=== PATIENT | female | born 1955 | race Caucasian/White ===

== ENCOUNTER 2018-06-18 11:07 | Outpatient (CLI) | payer MEDICARE, SELFPAY ==
[2018-06-18 13:24] LABS: Abs Immature Grans 0.02 k/cumm (0.0-0.09); Absolute Basophil Count 0.07 k/cumm (0.0-0.2); Absolute Eosinophil Count 0.63 k/cumm (0.0-0.7); Absolute Lymphocyte Count 3.03 k/cumm (1.2-3.4); Basophils % 0.6; Eosinophils % 5.4; HCT 40.6 % (36.0-46.0); HGB 13.6 g/dL (12.0-15.5); Immature Grans % 0.2; Lymphocytes % 25.8; Mean Corp. HGB Concentration 33.5 g/dL (32.0-36.0); Mean Corpuscular Hemoglobin 30.6 pg (27.0-33.0); Mean Corpuscular Volume 91.4 fL (80-95); Monocytes % 8.9; Neutrophils % 59.1; Platelet Count 520 x1000/uL (130-400); RBC 4.44 m/cumm (4.00-5.20); RBC Distribution Width 13.8 % (11.7-14.6); White Blood Cell Count 11.75 k/cumm (4.4-10.8)
[2018-06-18 13:25] LABS: Absolute Monocyte Count 1.05 k/cumm (0.11-0.7); Absolute Neutrophil Count 6.94 k/cumm (1.2-6.7)
[2018-06-18 13:52] LABS: ALT 32 U/L (12-78); AST 19 U/L (15-37); Albumin 3.5 g/dL (3.4-5.0); Alkaline Phosphatase 107 U/L (46-116); Anion Gap 8.9 mmol/L (3-11); BUN 15 mg/dL (7-18); Bilirubin, Total 0.4 mg/dL (0.2-1.0); CO2 26.1 mmol/L (21.0-32.0); CREATININE 0.71 mg/dL (0.55-1.02); Calcium 9.5 mg/dL (8.5-10.1); Chloride 104 mmol/L (98-107); Cholesterol 200 mg/dL (50-200); Ferritin 17 ng/mL (8-388); Glucose 87 mg/dL (70-100); HDL Cholesterol 37 mg/dL (40-60); LDL CHOLESTEROL 142 mg/dL (<100); Potassium 4.4 mmol/L (3.5-5.1); Sodium 139 mmol/L (136-145); TSH (W/Ref FT4) 1.24 uIU/mL (0.358-3.74); Total Protein 6.8 g/dL (6.4-8.2); Triglyceride 163 mg/dL (30-150)
== END 2018-06-18 11:27 ==
PROVIDERS: PCP Family Medicine; Visit Provider Family Medicine
DX: I10 Essential (primary) hypertension (principal); D47.3 Essential (hemorrhagic) thrombocythemia; E03.9 Hypothyroidism, unspecified
CPT/HCPCS: 36415; 80053; 80061; 83721; 82728; 84443; 85025

== ENCOUNTER 2019-08-05 09:22 | Outpatient (CLI) | payer MEDICARE, SELFPAY ==
--- NOTE | 2019-08-05 13:18 | DI.MAMMO_ITS ---
EXAM: MG MAMMO SCREENING CLINICAL HISTORY: screening, Z12.39. TECHNIQUE: Full field digital CC and MLO mammographic images were obtained with 3D tomosynthesis and utilizing computer aided detection (CAD). COMPARISON: [id number]. FINDINGS: Breast density: B Masses/Architectural Distortion: None seen. Microcalcifications: No suspicious pleomorphic-type calcifications are seen. Skin Thickening/Nipple Retraction: None. Axilla: Unremarkable. IMPRESSION: 1. BI-RADS category 1, negative. No significant interval change with no specific features of maligna ncy noted. 2. Unless there is more urgent need, screening mammography is recommended, as per [employer] guidelines. BI-RADS Cat 1 - Negative Breast Density - Category B - Scattered areas of fibroglandular density A negative radiographic report should not delay biopsy if a dominant or clinically suspicious mass is present. Up to ten percent of cancers are not identified on mammography. A negative report may reinforce clinical impression. Adenosis and dense breasts may obscure an underlying neoplasm. False positive reports average 6 to 10%. Patient will receive a letter notifying them of these results.
[2019-08-05 14:47] LABS: ALT 30 U/L (14-59); AST 17 U/L (15-37); Albumin 3.4 g/dL (3.4-5.0); Alkaline Phosphatase 93 U/L (46-116); Anion Gap 9.3 mmol/L (3-11); BUN 20 mg/dL (7-18); Bilirubin, Total 0.3 mg/dL (0.2-1.0); CO2 29.7 mmol/L (21.0-32.0); CREATININE 0.73 mg/dL (0.55-1.02); Calcium 9.6 mg/dL (8.5-10.1); Calculated LDL 145 mg/dL; Chloride 104 mmol/L (98-107); Cholesterol 209 mg/dL (<200); Glucose 104 mg/dL (74-106); HDL Cholesterol 34 mg/dL (40-60); Potassium 4.4 mmol/L (3.5-5.1); Sodium 143 mmol/L (136-145); TSH (W/Ref FT4) 1.87 uIU/mL (0.36-3.74); Total Protein 6.6 g/dL (6.4-8.2); Triglyceride 154 mg/dL (<150)
== END 2019-08-05 09:42 ==
PROVIDERS: PCP Family Medicine; Visit Provider Family Medicine
DX: Z12.31 Encounter for screening mammogram for malignant neoplasm of breast (principal); I10 Essential (primary) hypertension; E03.9 Hypothyroidism, unspecified; R63.4 Abnormal weight loss
CPT/HCPCS: 36415; 77063; 77067; 80053; 80061; 84443

== ENCOUNTER 2019-12-30 09:38 | Outpatient (CLI) | payer MEDICARE, SELFPAY ==
[2019-12-30 21:22] LABS: Abs Immature Grans 0.03 k/cumm (0.0-0.09); Absolute Basophil Count 0.06 k/cumm (0.0-0.2); Absolute Eosinophil Count 0.31 k/cumm (0.0-0.7); Absolute Lymphocyte Count 3.31 k/cumm (1.2-3.4); Absolute Monocyte Count 1.16 k/cumm (0.11-0.7); Absolute Neutrophil Count 7.63 k/cumm (1.2-6.7); Basophils % 0.5; Eosinophils % 2.5; HCT 39.9 % (36.0-46.0); HGB 13.2 g/dL (12.0-15.5); Immature Grans % 0.2 %; Lymphocytes % 26.5; Mean Corp. HGB Concentration 33.1 g/dL (32.0-36.0); Mean Corpuscular Hemoglobin 30.3 pg (27.0-33.0); Mean Corpuscular Volume 91.5 fL (80-95); Mean Platelet Volume 10.2 fL (8.0-11.0); Monocytes % 9.3; Platelet Count 495 x1000/uL (130-400); RBC 4.36 m/cumm (4.00-5.20); RBC Distribution Width 14.5 % (11.7-14.6)
[2019-12-30 21:39] LABS: ALT 29 U/L (14-59); AST 15 U/L (15-37); Albumin 3.9 g/dL (3.4-5.0); Alkaline Phosphatase 109 U/L (46-116); Anion Gap 9.3 mmol/L (3-11); BUN 6 mg/dL (7-18); Bilirubin, Total 0.6 mg/dL (0.2-1.0); CO2 27.7 mmol/L (21.0-32.0); CREATININE 0.61 mg/dL (0.55-1.02); Calcium 9.5 mg/dL (8.5-10.1); Calculated LDL 136 mg/dL (<100); Chloride 103 mmol/L (98-107); Cholesterol 202 mg/dL (<200); Glucose 102 mg/dL (74-106); HDL Cholesterol 37 mg/dL (40-60); Potassium 4.5 mmol/L (3.5-5.1); Sodium 140 mmol/L (136-145); TSH (W/Ref FT4) 0.91 uIU/mL (0.36-3.74); Total Protein 7.2 g/dL (6.4-8.2); Triglyceride 146 mg/dL (<150)
[2019-12-30 22:00] LABS: Mono Screening Negative (Negative)
[2019-12-30 22:30] LABS: ESR 21 mm/hr (0-30)
[2019-12-31 13:11] LABS: COVID-19 RT-PCR UVMMC Result Negative (Negative)
== END 2019-12-30 09:58 ==
PROVIDERS: PCP Family Medicine; Visit Provider Family Medicine
DX: E03.9 Hypothyroidism, unspecified (principal); R59.1 Generalized enlarged lymph nodes; R53.83 Other fatigue; Z11.59 Encounter for screening for other viral diseases
CPT/HCPCS: 80053; 80061; 85652; U0003; 84443; 85025; 86140; 86308; 86618

== ENCOUNTER 2020-01-09 02:30 | Outpatient (CLI) | payer MEDICARE, SELFPAY ==
[2020-01-12 11:30] LABS: Lyme Ab w Rflx to Lyme Confirm Negative (Negative)
== END 2020-01-09 02:50 ==
PROVIDERS: PCP Family Medicine; Visit Provider Family Medicine
DX: E03.9 Hypothyroidism, unspecified (principal); R59.1 Generalized enlarged lymph nodes
CPT/HCPCS: 36415; 86618

== ENCOUNTER 2020-06-07 13:04 | Outpatient (CLI) | payer MEDICARE, SELFPAY ==
[2020-06-09 00:16] LABS: Patient Race White; SARS-CoV-2 RNA Undetected (Undetected); SARS-CoV-2 Specimen Source Nasopharynx
== END 2020-06-07 13:24 ==
PROVIDERS: PCP Family Medicine; Visit Provider Family Medicine
DX: R53.83 Other fatigue (principal); M79.18 Myalgia, other site
CPT/HCPCS: U0003

== ENCOUNTER 2020-09-03 03:00 | Outpatient (CLI) | payer MEDICARE, SELFPAY ==
[2020-09-04 15:30] LABS: COVID-19 RT-PCR UVMMC Result Negative (Negative)
== END 2020-09-03 03:20 ==
PROVIDERS: PCP Family Medicine; Visit Provider Family Medicine
DX: Z20.828 Contact with and (suspected) exposure to other viral communicable diseases (principal)
CPT/HCPCS: U0003

== ENCOUNTER 2020-11-01 16:47 | Outpatient (REF) | payer MEDICARE, SELFPAY ==
[2020-11-03 12:57] LABS: COVID-19 RT-PCR UVMMC Result Negative (Negative)
== END 2020-11-01 16:48 | disposition home or self-care (01) ==
LOC: LBN 16:47
PROVIDERS: PCP Family Medicine; Visit Provider Nurse Practitioner Family
DX: Z20.822 Contact with and (suspected) exposure to COVID-19 (principal)
CPT/HCPCS: U0003; U0005

== ENCOUNTER 2021-03-03 18:55 | Outpatient (REF) | payer MEDICARE, SELFPAY ==
[2021-03-05 12:59] LABS: COVID-19 RT-PCR UVMMC Result Negative (Negative)
== END 2021-03-03 18:56 | disposition home or self-care (01) ==
LOC: LBN 18:55
PROVIDERS: PCP Family Medicine; Visit Provider Physician Assistant
DX: Z20.822 Contact with and (suspected) exposure to COVID-19 (principal)
CPT/HCPCS: U0003

== ENCOUNTER 2021-03-04 04:30 | Outpatient (CLI) | payer MEDICARE, SELFPAY ==
--- NOTE | 2021-03-04 07:15 | DI.RAD_ITS ---
Exam(s) XR CHEST 2V PA LATERAL EXAM: XR CHEST 2V PA LATERAL CLINICAL HISTORY: cough, malaise. R/o pneumonia,r05 TECHNIQUE: 2D digital imaging was performed. COMPARISON: No exams were available for comparison FINDINGS: MEDIASTINUM: Normal. HEART: Normal. PULMONARY VASCULATURE: Normal. LUNGS: Clear. Mild hyperinflation. PLEURAL SPACE: No pleural effusion or pneumothorax. BONE:Unremarkable for age. IMPRESSION: No evidence of pneumonia or other acute abnormality. DATA REPOSITORY: RADIATION DOSE DELIVERED:
== END 2021-03-04 04:50 ==
PROVIDERS: PCP Family Medicine; Visit Provider Physician Assistant
DX: R05 Cough (principal); R53.81 Other malaise
CPT/HCPCS: 71046

== ENCOUNTER 2021-03-17 10:50 | Day surgery (SDC) | payer MEDICARE, SELFPAY ==
[2021-03-17 11:01] VITALS: BP 153/88; PULSE 92; TEMP 37.4; O2SAT 98
--- NOTE | 2021-03-17 11:19 | ED.GENADUL_ITS ---
Discharge Plan Disposition Patient Disposition: HOME Condition: Stable Discharge Details Clinical Impression: Laceration of finger of right hand with tendon involvement Primary Care Provider: Ana Campos ED Provider: Carol Davila Discharge Data Discharge Date/Time-TO BE ENTERED AT DEPARTURE: 03/17/21 13:32 Medical Decision Making No suspicion for fracture given mechanism, obvious tendon laceration, splinted with aluminum foam in extension Tetanus updated Discussed with Dr. Warner, orthopedic -Follow-up list, patient aware she will likely need surgical intervention Tolerated suture placement without incident -Keflex empirically Patient will actually be taken to the operating room at this time after Dr. Warner presented to the emergency room to evaluate the patient, states he has documentation HPI General Mode of arrival: ambulatory . Date/Time Provider Initiated Documentation: 03/17/21 11:16 . Limitations to Documentation: no limitations . Information obtained by: patient . HPI Narrative: This 65-year-old female presents with a laceration to her right thumb. Patient denies any additional injuries. She states she was washing a aluminum hand this morning with only and accidentally lacerated her thumb. She states she cannot extend her thumb. She has any strength or sensation change. Denies any history of anticoagulation. States mild discomfort to the area. Denies any history of immunosuppression. Related Data Home Medications Medication Instructions Recorded Confirmed Chaga Tea 1 ea PO QID 10/21/15 03/17/21 albuterol sulfate 90 mcg/actuation 2 puff INHALATION Q4H PRN #1 11/19/19 03/17/21 aerosol inhaler canister amlodipine 10 mg tablet 10 mg PO DAILY #90 tab-cap 07/01/20 03/17/21 ibuprofen 600 mg tablet 600 mg PO Q6H PRN #180 tab-cap 07/01/20 03/17/21 levothyroxine 100 mcg tablet 100 mcg PO DAILY #90 tab-cap 07/01/20 03/17/21 hydrochlorothiazide 25 mg tablet 25 mg PO DAILY #90 tab 12/28/20 03/17/21 Symbicort 160 mcg-4.5 2 puff INHALATION BID #10.2 g NS 02/03/21 03/17/21 mcg/actuation HFA aerosol inhaler umeclidinium 62.5 mcg-vilanterol 1 inh INHALATION DAILY #180 ea 02/14/21 03/17/21 25 mcg/actuation powdr for inhalation albuterol sulfate 90 mcg/actuation 2 puff INHALATION Q6H PRN #8.5 g 03/03/21 03/17/21 aerosol inhaler benzonatate 100 mg capsule 100 mg PO TID PRN #14 cap 03/03/21 03/17/21 naproxen 250 - 500 mg PO BID PRN #20 tab 03/17/21 oxycodone 5 - 10 mg PO Q4H PRN #7 tab 03/17/21 Previous Rx's Medication Instructions Recorded albuterol sulfate 90 mcg/actuation 2 puff INHALATION Q4H PRN #1 11/19/19 aerosol inhaler canister amlodipine 10 mg tablet 10 mg PO DAILY #90 tab-cap 07/01/20 ibuprofen 600 mg tablet 600 mg PO Q6H PRN #180 tab-cap 07/01/20 levothyroxine 100 mcg tablet 100 mcg PO DAILY #90 tab-cap 07/01/20 hydrochlorothiazide 25 mg tablet 25 mg PO DAILY #90 tab 12/28/20 Symbicort 160 mcg-4.5 2 puff INHALATION BID #10.2 g NS 02/03/21 mcg/actuation HFA aerosol inhaler umeclidinium 62.5 mcg-vilanterol 1 inh INHALATION DAILY #180 ea 02/14/21 25 mcg/actuation powdr for inhalation albuterol sulfate 90 mcg/actuation 2 puff INHALATION Q6H PRN #8.5 g 03/03/21 aerosol inhaler benzonatate 100 mg capsule 100 mg PO TID PRN #14 cap 03/03/21 naproxen 250 - 500 mg PO BID PRN #20 tab 03/17/21 oxycodone 5 - 10 mg PO Q4H PRN #7 tab 03/17/21 Allergies Allergy/AdvReac Type Severity Reaction Status Date / Time meloxicam [From Mobic] Allergy Intermediate NAVARRO's, Hives Verified 03/17/21 11:03 diazepam [From Valium] Allergy Mild Skin Rash Verified 03/17/21 11:03 nortriptyline AdvReac Intermediate Irritability Verified 03/17/21 11:03 and dizziness tramadol AdvReac Mild Lightheaded Verified 03/17/21 11:03 ness doxycycline AdvReac Tingling Verified 03/17/21 11:03 in hands gabapentin AdvReac Dizziness Verified 03/17/21 11:03 General Stated Complaint: Laceration CLARIBEL: 3 Review of Systems Musculoskeletal Comments: Decreased range of motion of right thumb, pain PFSH Medical History Abnormal WBC count (11/12/14) Cervical spondylosis (08/27/12) Chronic obstructive lung disease Closed fracture of humerus right 11/04/07 Closed fracture of humerus (11/04/07) COPD (chronic obstructive pulmonary disease) Discoid lupus erythematosus Suspected 11/04/07 Discoid lupus erythematosus (11/04/07) Essential hypertension Essential hypertension (06/11/13) Fibromyalgia Fibromyalgia syndrome (01/22/14) elevated MATTHEW 06/12/14;DNA DOUBLE STRANDED Ab, IgG; 177 Cardiolipin IgM; Indeterminate 12.5 Graves disease (06/12/13) 1981 WITH ABLATION; NOW ON REPLACEMENT H/O bone density study good 08/27/02 Hand joint pain 11/04/07 Hand joint pain (11/04/07) History of bone density study Hypothyroidism s/p ablation for grave's disease Hypothyroidism (04/08/13) Thyroid orbitopathy Left inguinal hernia Lumbar disc prolapse with compression radiculopathy (08/27/12) spinal stenosis r leg radiculopathy Smoker Smoker (11/04/07) Therapeutic procedure nerve root block and steroid injection--right S-1 04/07/15 Thoracic back pain Thrombocytosis Unilateral inguinal hernia, without obstruction or gangrene, not specified as recurrent (10/01/15) Weight loss, abnormal (04/23/17) Surgical History BONE DENSITY TEST (~2002) GOOD CYST REMOVAL (~1977) WRIST H/O prior ablation treatment Graves Disease 08/27/81 H/O removal of cyst wrist History of prior ablation treatment History of removal of cyst Hysterectomy, Laproscopic (~1981) for heavy bleeding; still has both ovaries Recurrent major depression in partial remission (~1981) FOR GRAVES DISEASE Repair of inguinal hernia (06/21/16) 06/21/16 removal of old mesh and repair 11/24/15; LEFT S/P laparoscopic hysterectomy for heavy bleeding; both ovaries remain S/P unilateral inguinal hernia repair left 11/24/15 Status post laparoscopic hysterectomy Status post unilateral inguinal hernia repair (11/24/15) Family History Mother , RESPIRATORY at age 78. Essential hypertension Mental disorder dementia Asthma Father , ETOH at age 56. Alcohol abuse Sister Essential hypertension Brother Asthma Maternal Grandfather , age 68 Essential hypertension Paternal Grandfather Diabetes Maternal Grandmother , age 68 Essential hypertension Paternal Grandmother No problems noted. Son No problems noted. Son No problems noted. Social History Smoking/Tobacco Use Status: Former Tobacco Use Quit Date: 04/30/94 Tobacco: How many years used: 23 Second Hand Exposure: No Smoking risk assessment performed?: Yes Alcohol Intake: current Alcohol Intake frequency: 0-2 drinks per day Alcohol type: beer Drug use: Daily Substance use type: marijuana Caregiver/Support person: No Household members: family Housing: house Communication Needs: None Do you need help understanding health information?: Never Pets and animals: Yes Pets and animals: cat(s) and dog(s) Sexually active: No Do you think of yourself as: straight/heterosexual Current gender identity: female What is your relationship status?: How often do you talk on the phone with friends or family?: three or more times per week How often do you get together with friends or relatives?: three or more times per week How often do you attend sikh or pentecostal services?: 4 or more times per year Do you belong to any clubs or organized social groups?: no Panel score (0-1 are the most socially isolated patients): 2 What type of physical activity do you participate in: walking Duration: 15-30 minutes/day Frequency: 3-4 times per week Francesca/Yarsani: Mosque Special francesca needs: No Seatbelt use: always Drive 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 Do you feel safe in your relationship?: Yes Victim of physical abuse: No Victim of emotional abuse: No Victim of sexual abuse: No Exam Const General: cooperative and healthy appearing Extrem Other: Right thumb with laceration proximal phalanx, held in flexion Sensation intact distally, brisk capillary refill distally Course Vital Signs Vital signs: Vital Signs Temperature 37.4 C 03/17/21 11:01 Pulse 92 H 03/17/21 11:01 Blood Pressure 153/88 H 03/17/21 11:01 Pulse Oximetry 98 03/17/21 11:01 Temperature 37.4 C 03/17/21 11:01 Temperature Source Temporal Artery Scan 03/17/21 11:01 Pulse 92 H 03/17/21 11:01 Blood Pressure 153/88 H 03/17/21 11:01 Blood Pressure Position Sitting 03/17/21 11:01 Pulse Oximetry 98 03/17/21 11:01 Oxygen Delivery Method Room Air 03/17/21 11:01 Oxygen Flow Rate 0 03/17/21 11:01 Pain Level 6 03/17/21 11:01 Procedures Laceration Laceration 1: Site: upper extremity Side (If applicable): right Size (cm): 2 Description: linear Depth: simple, single layer Local Anesthetic: Lidocaine 1% Amount of anesthesia used (mL): 3 Pre-repair: wound explored Skin layer closed with: other Size (cm): 5-0 Number of sutures: 2 Technique: simple, interrupted
[2021-03-17 12:44] LABS: Source Nasal/Nares
--- NOTE | 2021-03-17 12:50 | HPE_ITS ---
Date of service: 03/17/21 Time of Service: 12:50 Assessment and Plan Assessment and plan (1) Laceration of finger of right hand with tendon involvement: Status: Acute Assessment and plan: 65-year-old female with acute right thumb extensor tendon laceration consistent with complete EPL rupture. Discuss options with the patient including repair today under local anesthesia, which the patient prefers. Declines following up tomorrow n.p.o. for monitored anesthesia care. Also declines referral to hand surgeon elsewhere for definitive surgical management. As I have not seen the wound, I did discuss exploring the wound and discovering a more significant injury that is not amenable to end-to-end repair and could need tendon transfer that would have to be performed at another time with a hand surgeon. The risks, benefits, and alternatives were thoroughly discussed. Patient was counseled regarding pain management, expected postoperative course, and recovery timeline. Especially high risk for pain and stiffness given pre- existing fibromyalgia and arthritis. All questions were answered. Informed consent was obtained. Agree and understand treatment plan. Follow up 10-14 days after surgery. Will call if any changes or concerns. Qualifiers: Encounter type: initial encounter Qualified Code(s): S61.219A - Laceration without foreign body of unspecified finger without damage to nail, initial encounter History of Present Illness History of Present Illness Chief Complaint: Right thumb laceration Narrative: Patient describes cleaning aluminum can for recycling this morning around 9 AM and suffering isolated laceration to the back of her right thumb. Immediately new there was a problem as the thumb bent into flexion and she was unable to straighten it. Flexion and sensation otherwise intact. No pre-existing tendon dysfunction but relates prior thumb and hand arthritis and fibromyalgia pains. Former smoker with COPD. Awaiting new COPD medications to optimize control. Stable hypertension. Review of Systems All systems reviewed & are unremarkable except as noted in HPI and below PFSH Medical History Abnormal WBC count (11/12/14) Cervical spondylosis (08/27/12) Chronic obstructive lung disease Closed fracture of humerus right 11/04/07 Closed fracture of humerus (11/04/07) COPD (chronic obstructive pulmonary disease) Discoid lupus erythematosus Suspected 11/04/07 Discoid lupus erythematosus (11/04/07) Essential hypertension Essential hypertension (06/11/13) Fibromyalgia Fibromyalgia syndrome (01/22/14) elevated MATTHEW 06/12/14;DNA DOUBLE STRANDED Ab, IgG; 177 Cardiolipin IgM; Indeterminate 12.5 Graves disease (06/12/13) 1981 WITH ABLATION; NOW ON REPLACEMENT H/O bone density study good 08/27/02 Hand joint pain 11/04/07 Hand joint pain (11/04/07) History of bone density study Hypothyroidism s/p ablation for grave's disease Hypothyroidism (04/08/13) Thyroid orbitopathy Left inguinal hernia Lumbar disc prolapse with compression radiculopathy (08/27/12) spinal stenosis r leg radiculopathy Smoker Smoker (11/04/07) Therapeutic procedure nerve root block and steroid injection--right S-1 04/07/15 Thoracic back pain Thrombocytosis Unilateral inguinal hernia, without obstruction or gangrene, not specified as recurrent (10/01/15) Weight loss, abnormal (04/23/17) Surgical History BONE DENSITY TEST (~2002) GOOD CYST REMOVAL (~1977) WRIST H/O prior ablation treatment Graves Disease 08/27/81 H/O removal of cyst wrist History of prior ablation treatment History of removal of cyst Hysterectomy, Laproscopic (~1981) for heavy bleeding; still has both ovaries Recurrent major depression in partial remission (~1981) FOR GRAVES DISEASE Repair of inguinal hernia (06/21/16) 06/21/16 removal of old mesh and repair 11/24/15; LEFT S/P laparoscopic hysterectomy for heavy bleeding; both ovaries remain S/P unilateral inguinal hernia repair left 11/24/15 Status post laparoscopic hysterectomy Status post unilateral inguinal hernia repair (11/24/15) Family History Mother , RESPIRATORY at age 78. Essential hypertension Mental disorder dementia Asthma Father , ETOH at age 56. Alcohol abuse Sister Essential hypertension Brother Asthma Maternal Grandfather , age 68 Essential hypertension Paternal Grandfather Diabetes Maternal Grandmother , age 68 Essential hypertension Paternal Grandmother No problems noted. Son No problems noted. Son No problems noted. Social History Smoking/Tobacco Use Status: Former Tobacco Use Quit Date: 04/30/94 Tobacco: How many years used: 23 Second Hand Exposure: No Smoking risk assessment performed?: Yes Alcohol Intake: current Alcohol Intake frequency: 0-2 drinks per day Alcohol type: beer Drug use: Daily Substance use type: marijuana Caregiver/Support person: No Household members: family Housing: house Communication Needs: None Do you need help understanding health information?: Never Pets and animals: Yes Pets and animals: cat(s) and dog(s) Sexually active: No Do you think of yourself as: straight/heterosexual Current gender identity: female What is your relationship status?: How often do you talk on the phone with friends or family?: three or more times per week How often do you get together with friends or relatives?: three or more times per week How often do you attend latter day or samaritan services?: 4 or more times per year Do you belong to any clubs or organized social groups?: no Panel score (0-1 are the most socially isolated patients): 2 What type of physical activity do you participate in: walking Duration: 15-30 minutes/day Frequency: 3-4 times per week Francesca/Faith: Judaism Special francesca needs: No Seatbelt use: always Drive intox 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: No Do you feel safe in your relationship?: Yes Victim of physical abuse: No Victim of emotional abuse: No Victim of sexual abuse: No Meds Allergies and Home Medications Allergies Allergy/AdvReac Type Severity Reaction Status Date / Time meloxicam [From Mobic] Allergy Intermediate NAVARRO's, Hives Verified 03/17/21 11:03 diazepam [From Valium] Allergy Mild Skin Rash Verified 03/17/21 11:03 nortriptyline AdvReac Intermediate Irritability Verified 03/17/21 11:03 and dizziness tramadol AdvReac Mild Lightheaded Verified 03/17/21 11:03 ness doxycycline AdvReac Tingling Verified 03/17/21 11:03 in hands gabapentin AdvReac Dizziness Verified 03/17/21 11:03 Home Medications Medication Instructions Recorded Confirmed Type Chaga Tea 1 ea PO QID 10/21/15 03/03/21 History albuterol sulfate 90 mcg/actuation 2 puff INHALATION Q4H PRN #1 11/19/19 07/04/16 Rx aerosol inhaler canister amlodipine 10 mg tablet 10 mg PO DAILY #90 tab-cap 07/01/20 03/03/21 Rx ibuprofen 600 mg tablet 600 mg PO Q6H PRN #180 tab-cap 07/01/20 03/03/21 Rx levothyroxine 100 mcg tablet 100 mcg PO DAILY #90 tab-cap 07/01/20 03/03/21 Rx hydrochlorothiazide 25 mg tablet 25 mg PO DAILY #90 tab 12/28/20 03/03/21 Rx Symbicort 160 mcg-4.5 2 puff INHALATION BID #10.2 g NS 02/03/21 03/03/21 Rx mcg/actuation HFA aerosol inhaler umeclidinium 62.5 mcg-vilanterol 1 inh INHALATION DAILY #180 ea 02/14/21 03/03/21 Rx 25 mcg/actuation powdr for inhalation albuterol sulfate 90 mcg/actuation 2 puff INHALATION Q6H PRN #8.5 g 03/03/21 03/03/21 Rx aerosol inhaler benzonatate 100 mg capsule 100 mg PO TID PRN #14 cap 03/03/21 03/03/21 Rx cephalexin 500 mg PO TID 7 Days #21 cap 03/17/21 Rx Exam Narrative Exam Narrative: Awake, alert, and in no distress Breathing comfortably on room air 2+ right radial pulse. Regular rate and rhythm. Emergency department bandage placed over thumb limiting assessment of wound but reportedly couple centimeter transverse clean laceration over the dorsal aspect of the thumb proximal phalanx. Patient unable to demonstrate any MCP J or IPJ extension. Only minimally able to demonstrate flicker of thumb flexion. No active bleeding. Sensation grossly intact to light touch without paresthesias in the distal exposed thumb. Results Imaging Imaging Studies: X-rays were deferred given superficial soft tissue laceration Labs Labs: Laboratory Results - last 24 hr 03/17/21 12:26 COVID-19 Source Nasal/Nares Last Vital Signs Temp 99.3 F 03/17/21 11:01 Pulse 92 H 03/17/21 11:01 BP 153/88 H 03/17/21 11:01 Pulse Ox 98 03/17/21 11:01
--- NOTE | 2021-03-17 13:18 | ROE_ITS ---
Date of service: 03/17/21 Time of Service: 14:00 Operative Note Operative Note DATE OF PROCEDURE: 03/17/21 PRE-OP DIAGNOSIS: Right thumb extensor tendon laceration POST-OP DIAGNOSIS: same PROCEDURE: Right thumb extensor pollicis longus repair, CPT #69223 SURGEON: Denny Warner PSYCHIATRIC CLINICAL NURSE SPECIALIST: None None ANESTHESIA TYPE: Local By Surgeon Refer to Anesthesia Record ESTIMATED BLOOD LOSS: 5 TOURNIQUET TIME: 0 COMPLICATIONS: None Patient was transported to: PACU Patient's condition: stable Indications: Please see complete medical record for details. Findings: Complete, oblique EPL laceration Procedure Description: In the operating room, a timeout was performed to confirm the correct patient, procedure, and side of procedure. Local anesthesia was induced about the right thumb under sterile technique using a digital block with 9 cc 1% lidocaine containing epinephrine buffered and 1 cc sodium bicarbonate. The patient was positioned supine on the operating room table. All bony prominences were well-padded. Preoperative antibiotics were administered. The right hand was prepped and draped in the usual sterile fashion. There was no oblique incision dorsally over the distal aspect of the thumb proximal phalanx. 2 sets of Prolene sutures were removed and those instruments passed off. The thumb and wound were prepped with Betadine. The wound opened up and copiously irrigated. The proximal EPL tendon stump was visible at the level of the wound and showing complete laceration. There was an indentation over the dorsal aspect of the proximal phalanx but no true structural damage or fracture. The wound and injury zone did not extend to the equator and the digital neurovascular bundles were not exposed radially or ulnarly. With the thumb positioned in extension and the IP joint in flexion in both extension the distal tendon stump was unable to be delivered to the wound site. The obliquity of the laceration and tendon injury left the distal aspect of the tendon cut near its insertion at the dorsal base of the distal phalanx. The oblique incision was then extended at the distal corner ulnarly and acute angle distally across the IP joint. The skin flap secured temporarily by a nylon stitch. The distal tendon was now readily visible. Both the distal and proximal tendon stumps were properly exposed. The recent clean laceration did not require any debridement. With the thumb in full extension the tendon ends were provisionally brought into approximation. 3-0 FiberWire was then used in a modified Thurman fashion to repair the tendon ends securing them with 6 strands 3 repair pairs located centrally radially and ulnarly. There was excellent apposition of the tissue ulnarly and centrally. The obliquity left a small defect most radially. An additional mattress suture with 3-0 FiberWire was then used for added security given the significant distal injury zone and inability to completely repair the entire tendon securing the tendon more distally and proximally with a knot buried in the dorsal aspect of the tendon proximally. The patient was asked to demonstrate and maintain full extension, which was done without any gapping or difficulty. The repair demonstrated excellent fixation strength without any significant gapping with moderate thumb flexion. Given the already high number of sutures present, an epitendinous repair was omitted. The wound and incision site was copiously irrigated normal saline. The skin flap well approximated and then skin repaired using 4-0 nylon in horizontal mattress fashion. Xeroform was applied over the incision followed by 4 x 4 gauze and Ker lix in a spica wrap maintaining thumb and IPJ in full extension. An AlumaFoam splint was then applied over the dorsal aspect of the thumb molded to maintain the thumb in full extension, secured athletic tape, and then the wrist hand and thumb overwrapped with 2 inch Alex wrap again in a spica fashion maintained in extension. The patient tolerated local anesthesia well and was transferred to the day surgery unit in a stable condition.
[2021-03-17] MEDS: ceFAZolin 2 GM/50 ML BAG 200 GM (13:31)
[2021-03-17] MEDS: Sodium Bicarbonate 50 MEQ/50 ML VIAL (13:54)
[2021-03-17 14:45] VITALS: BP 146/88; PULSE 106; RESP 20; TEMP 37.1; O2SAT 97
--- NOTE | 2021-03-17 14:54 | W.PM.DSUDISC ---
Discharge Plan Disposition Patient Disposition: HOME Condition: Stable Discharge Details Reason For Visit: Right thumb laceration Attending Provider: Denny Warner Primary Care Provider: Ana Campos Home Meds and New Rx's Prescriptions: New naproxen 250 mg tablet 250 - 500 mg PO BID PRN (Reason: Moderate pain or swelling) Qty: 20 RF: 0 oxycodone 5 mg tablet 5 - 10 mg PO Q4H PRN (Reason: moderate to severe pain) Qty: 7 RF: 0 Continued levothyroxine 100 mcg tablet 100 mcg PO DAILY Qty: 90 RF: 12 ibuprofen 600 mg tablet 600 mg PO Q6H PRN Qty: 180 RF: 0 amlodipine 10 mg tablet 10 mg PO DAILY Qty: 90 RF: 12 hydrochlorothiazide 25 mg tablet 25 mg PO DAILY Qty: 90 RF: 4 albuterol sulfate [Proventil HFA] 90 mcg/actuation HFA aerosol inhaler 2 puff inhalation Q6H PRN (Reason: shortness of breath or wheezing) Qty: 8.5 RF: 0 benzonatate [Tessalon Perles] 100 mg capsule 100 mg PO TID PRN (Reason: cough) Qty: 14 RF: 0 chaga tea 1 ea PO QID RF: 0 albuterol sulfate [ProAir HFA] 90 mcg/actuation HFA aerosol inhaler 2 puff Inhalation Q4H PRN Qty: 1 RF: 12 budesonide-formoterol [Symbicort] 160-4.5 mcg/actuation HFA aerosol inhaler 2 puff inhalation BID Qty: 10.2 RF: 12 Anoro Ellipta 62.5-25 mcg/actuation blister with device 1 inh inhalation DAILY Qty: 180 RF: 4 Discharge Instructions Instructions: Finger Laceration (ED) Additional Instructions: Surgery: Right thumb extensor tendon repair Activity: Maintain right thumb in full extension until follow-up. Do not attempt to bend thumb. May use remainder of hand and fingers gently. A hand therapy prescription will be provided in the office at follow-up. Prescriptions: No additional antibiotics required Naproxen 250 mg take 1-2 every 12 hours with a meal as needed for moderate pain Oxycodone 5 mg take 1-2 every 4-6 hours as needed for severe pain You may use [id number] Tylenol (acetaminophen) as needed for mild pain. These pain medications may be taken all at once or in different combinations as needed. Also, recommend Colace (docusate) as a stool softener as surgery and pain medicine cause constipation. Dressings: Leave splint and dressing in place until follow-up. Keep clean and dry at all times. If you feel comfortable unwrapping/removing the dressing, this may be done in 3-5 days. Cover with a Band-Aid and reapply AlumaFoam splint with athletic tape. Follow-up: 10-[address] Warner. Let us know right away if you develop any redness, drainage, fevers, chest pain, or trouble breathing. Do not drink alcohol or drive for at least 24 hours after anesthesia. Please call the office during business hours with any questions or concerns. Referrals: Denny Warner MD [ [facility] STAFF PHYSICIAN] - 03/17/21 9:45 am Discharge Orders Discharge Orders: Discharge Order (Routine); Ordered 03/17/21 Ordered By: Denny Warner DS: Diagnosis Discharge Diagnosis (1) Laceration of finger of right hand with tendon involvement: Status: Acute
[2021-03-17 16:02] LABS: COVID-19 PCR Negative (Negative)
== END 2021-03-17 15:05 | disposition home or self-care (01) ==
LOC: ER 13:10 → SUR 13:33
PROVIDERS: Emergency Provider Physician Assistant; PCP Family Medicine; Visit Provider Student in an Organized Health Care Education/Training Program
PROC: (CPT 26410; principal; 2021-03-17 11:00)
DX: S66.221A Laceration of extensor muscle, fascia and tendon of right thumb at wrist and hand level, initial encounter (principal); W26.8XXA Contact with other sharp object(s), not elsewhere classified, initial encounter; J44.9 Chronic obstructive pulmonary disease, unspecified; I10 Essential (primary) hypertension; M79.7 Fibromyalgia; L93.0 Discoid lupus erythematosus
CPT/HCPCS: 26410; 12001; 87635; 90471; 99285; 99283; J0690

== ENCOUNTER 2021-03-24 14:23 | Outpatient (CLI) | payer MEDICARE, SELFPAY ==
[2021-03-24 13:10] LABS: ALT 25 U/L (14-59); AST 20 U/L (15-37); Albumin 3.9 g/dL (3.4-5.0); Alkaline Phosphatase 96 U/L (46-116); Anion Gap 12.8 mmol/L (3-11); BUN 12 mg/dL (7-18); Bilirubin, Total 0.5 mg/dL (0.2-1.0); CO2 26.2 mmol/L (21.0-32.0); CREATININE 0.6 mg/dL (0.55-1.02); Calcium 9.9 mg/dL (8.5-10.1); Calculated LDL 136 mg/dL (<100); Chloride 102 mmol/L (98-107); Cholesterol 193 mg/dL (<200); Glucose 87 mg/dL (74-106); HDL Cholesterol 42 mg/dL (40-60); Potassium 4.4 mmol/L (3.5-5.1); Sodium 141 mmol/L (136-145); TSH (W/Ref FT4) 0.13 uIU/mL (0.36-3.74); Triglyceride 77 mg/dL (<150)
[2021-03-24 15:58] LABS: FREE T4 2.32 ng/dL (0.76-1.46)
== END 2021-03-24 14:24 | disposition home or self-care (01) ==
LOC: LOS 14:23
PROVIDERS: PCP Family Medicine; Visit Provider Family Medicine
DX: I10 Essential (primary) hypertension (principal); E03.9 Hypothyroidism, unspecified; J44.9 Chronic obstructive pulmonary disease, unspecified
CPT/HCPCS: 36415; 80053; 80061; 84439; 84443

== ENCOUNTER → 2021-03-29 09:45 | Outpatient (BNVA) | payer MEDICARE, SELFPAY | PROVIDERS: PCP Family Medicine; Referring Provider Family Medicine; Visit Provider Student in an Organized Health Care Education/Training Program | DX: Z47.89 Encounter for other orthopedic aftercare (principal) ==

== ENCOUNTER → 2021-05-10 09:28 | Outpatient (BNVA) | payer MEDICARE, SELFPAY | PROVIDERS: PCP Family Medicine; Referring Provider Family Medicine; Visit Provider Student in an Organized Health Care Education/Training Program | DX: Z47.89 Encounter for other orthopedic aftercare (principal) ==

== ENCOUNTER 2021-06-29 11:06 | Outpatient (REF) | payer MEDICARE, SELFPAY ==
[2021-07-01 10:42] LABS: COVID-19 RT-PCR UVMMC Result Negative (Negative)
== END 2021-06-29 11:07 | disposition home or self-care (01) ==
LOC: LBN 11:06
PROVIDERS: PCP Family Medicine; Visit Provider Family Medicine
DX: Z20.822 Contact with and (suspected) exposure to COVID-19 (principal); R05.8 Other specified cough
CPT/HCPCS: U0003

== ENCOUNTER 2021-08-02 02:45 | Outpatient (CLI) | payer MEDICARE, SELFPAY ==
[2021-08-02 14:42] LABS: Hemoglobin A1C 5.7 % (<5.7)
[2021-08-02 15:57] LABS: TSH (W/Ref FT4) 2.65 uIU/mL (0.36-3.74)
== END 2021-08-02 02:46 | disposition home or self-care (01) ==
LOC: LBO 02:45
PROVIDERS: PCP Family Medicine; Visit Provider Family Medicine
DX: E03.9 Hypothyroidism, unspecified (principal); E11.9 Type 2 diabetes mellitus without complications
CPT/HCPCS: 36415; 83036; 84443

== ENCOUNTER 2021-11-16 01:10 | Outpatient (CLI) | payer MEDICARE, SELFPAY ==
--- NOTE | 2021-11-16 12:42 | DI.MAMMO_ITS ---
Exam(s) MAMMO SCREENING EXAM: MAMMO SCREENING CLINICAL HISTORY: screening,Z12.39. TECHNIQUE: Bilateral full field digital CC and MLO mammographic images were obtained with 3D tomosyn thesis and utilizing computer aided detection (CAD). COMPARISON: Prior mammograms were reviewed, the most recent being July 2019. FINDINGS: There has been no significant change in the appearance and distribution of the fibroglandular tissue. There are no CAD designations. There are no new spiculated masses nor malignant appearing microcalcification groups. There is no significant architectural distortion nor skin thickening-retraction. IMPRESSION: No radiographic evidence of malignancy. BI-RADS Category 1 - Negative Breast Density - Category B - Scattered areas of fibroglandular density Breast density Category C or D implies that the patient has dense breast tissue. Dense breast tissue can make it harder to find cancer on a mammogram. Dense breast tissue is also associated with an incr eased risk of breast cancer. This information about the result of the mammogram report was provided to the patient to raise their awareness. Use this report when you speak with the patient about their risks for breast cancer, which includes their family history. At that time, you may recommend additional screening tests (Ultrasoun d or MRI) as these tests may add significant information. A negative radiographic report should not delay biopsy if a dominant or clinically suspicious mass is present. Up to ten percent of cancers are not identified on mammography. A negative report may reinforce clinical impression. Adenosis and dense breasts may obscure an underlying neoplasm. False positive reports average 6 to 10%. Patient will receive a letter notifying them of these results.
== END 2021-11-16 01:30 ==
PROVIDERS: PCP Family Medicine; Visit Provider Family Medicine
DX: Z12.31 Encounter for screening mammogram for malignant neoplasm of breast (principal)
CPT/HCPCS: 77063; 77067

== ENCOUNTER 2022-06-06 02:20 | Outpatient (CLI) | payer MEDICARE, SELFPAY ==
--- NOTE | 2022-06-06 07:30 | DI.US_ITS ---
Exam(s) US PELVIS TRANSVAGINAL EXAM: US PELVIS TRANSVAGINAL CLINICAL HISTORY: suprapubic pain,r10.2. TECHNIQUE: Transabdominal and transvaginal pelvic ultrasound was performed using standard protocol. COMPARISON: US ABD PELVIS TRANSVAG from 11/26/2015 FINDINGS: KIDNEYS: Limited renal evaluation is unremarkable. UTERUS: Status post hysterectomy. OVARIES: The ovaries cannot be visualized transabdominally or transvaginally. No adnexal masses are seen. CUL-DE-SAC: Free fluid: None. Other: None. IMPRESSION: 1. Limited evaluation of the kidneys is unremarkable. 2. Status post hysterectomy. 3. The ovaries cannot be visualized on this examination. No adnexal masses are seen. DATA REPOSITORY:
== END 2022-06-06 02:40 ==
PROVIDERS: PCP Family Medicine; Visit Provider Family Medicine
DX: R10.2 Pelvic and perineal pain (principal); Z98.890 Other specified postprocedural states
CPT/HCPCS: 76830; 76856

== ENCOUNTER 2022-06-06 14:14 | Outpatient (CLI) | payer MEDICARE, SELFPAY ==
[2022-06-06 15:54] LABS: ALT 26 U/L (14-59); AST 18 U/L (15-37); Albumin 3.7 g/dL (3.4-5.0); Alkaline Phosphatase 88 U/L (46-116); Anion Gap 5.9 mmol/L (3-11); BUN 19 mg/dL (7-18); Bilirubin, Total 0.4 mg/dL (0.2-1.0); CO2 32.1 mmol/L (21.0-32.0); CREATININE 0.8 mg/dL (0.55-1.02); Calcium 9.1 mg/dL (8.5-10.1); Chloride 99 mmol/L (98-107); Estimated GFR 81.72 (mL/min/1.73m2); Glucose 120 mg/dL (74-106); Potassium 3.1 mmol/L (3.5-5.1); Sodium 137 mmol/L (136-145); TSH (W/Ref FT4) 2.07 uIU/mL (0.36-3.74); Total Protein 7.2 g/dL (6.4-8.2)
== END 2022-06-06 14:15 | disposition home or self-care (01) ==
LOC: LBO 14:20
PROVIDERS: PCP Family Medicine; Visit Provider Family Medicine
DX: E03.9 Hypothyroidism, unspecified (principal); I10 Essential (primary) hypertension
CPT/HCPCS: 36415; 80053; 84443

== ENCOUNTER 2022-09-11 12:46 | Emergency (ER) | payer MEDICARE, SELFPAY ==
--- NOTE | 2022-09-11 12:45 | RT.EKG_ITS ---
APPROVED REPORT Exam: Resting ECG Reason for Exam: Patient Location: E HR:89 bpm ECG Measurements Heart Rate 89 AXIS [place] 132 P 81 QRSd 85 QRS 34 QT 381 T 33 QTc 465 Conclusion Sinus rhythm.
[2022-09-11 12:52] VITALS: BP 151/87; PULSE 97; RESP 17; O2SAT 100
--- NOTE | 2022-09-11 13:00 | DI.RAD_ITS ---
Exam(s) XR CHEST 2V PA LATERAL EXAM: XR CHEST 2V PA LATERAL CLINICAL HISTORY: intermittent chest pain TECHNIQUE: 2D digital imaging was performed of the chest. Two images were obtained. PA and lateral views were obtained. COMPARISON: CR XR CHEST 2V PA LATERAL from 03/04/2021 FINDINGS: MEDIASTINUM: Normal. HEART: Normal. PULMONARY VASCULATURE: Normal. LUNGS: Clear. Lungs are hyperinflated suggesting underlying COPD. PLEURAL SPACE: No pleural effusion or pneumothorax. BONE:Within normal limits for the patient's age. OTHER FINDINGS:Normal. IMPRESSION: No acute pulmonary findings. DATA REPOSITORY: RADIATION DOSE DELIVERED:
--- NOTE | 2022-09-11 13:06 | W.ED.GENAD ---
Discharge Plan Disposition Patient Disposition: Home Condition: Improving Discharge Details Chief Complaint: Chest Pain Clinical Impression: Chest pain Primary Care Provider: Ana Campos ED Provider: Taj Coto Home Meds and New Rx's Prescriptions: No Action amlodipine 10 mg tablet 10 mg PO DAILY Qty: 90 12RF albuterol sulfate [ProAir HFA] 90 mcg/actuation HFA aerosol inhaler 2 puff Inhalation Q4H PRN Qty: 1 12RF hydrochlorothiazide 25 mg tablet 25 mg PO DAILY Qty: 90 3RF levothyroxine 75 mcg tablet 75 mcg PO DAILY Qty: 90 1RF budesonide-formoterol [Symbicort] 160-4.5 mcg/actuation HFA aerosol inhaler 2 puff inhalation BID Qty: 10.2 12RF chaga tea 1 ea PO QID ibuprofen 600 mg tablet 600 mg PO Q6H PRN Qty: 180 0RF potassium chloride 20 mEq tablet extended release 20 meq PO DAILY Qty: 90 5RF naproxen 250 mg tablet 250 - 500 mg PO BID PRN (Reason: Moderate pain or swelling) Qty: 20 0RF arnica Tincture topical Discharge Instructions Instructions: Chest Pain (ED) Additional Instructions: Please follow-up with your primary care physician. Please return to the emergency department for any worsening symptoms. Medical Decision Making <Jarad Sanchez MD - Last Filed: 09/11/22 14:59> 67-year-old female presents from home. She describes nearly 2 months of intermittent episodes of chest discomfort which she describes as a tightness or cramping. Also has felt it in her back at times. She states that earlier today she had 10 minutes of pain that radiated down her left arm. She states this caused her some distress and anxiety. It resolved by the time of arrival. Patient arrives alert and well-appearing. Differential diagnosis considered is broad. Patient had IV access established, placed on classroom monitor, referred for laboratory testing, EKG and chest x-ray. EKG is reassuring. Patient has history of slightly elevated white blood cell counts and today elevated at 17, hematocrit 39, platelets of 521. Left shift is present. Sodium 133, potassium 3.2, chloride 97, bicarb 27, BUN 15, creatinine 0.7. Glucose 130, troponin negative, D-dimer 333. Chest x-ray without focal infiltrate and no acute pulmonary findings. Patient is improving. We will sign the patient out to Dr. Lazaro Tapia pending repeat cardiac enzyme. Please see his note regarding final impression and disposition. <Taj Coto MD - Last Filed: 09/11/22 16:05> 67-year-old female presents from home. She describes nearly 2 months of intermittent episodes of chest discomfort which she describes as a tightness or cramping. Also has felt it in her back at times. She states that earlier today she had 10 minutes of pain that radiated down her left arm. She states this caused her some distress and anxiety. It resolved by the time of arrival. Patient arrives alert and well-appearing. Differential diagnosis considered is broad. Patient had IV access established, placed on classroom monitor, referred for laboratory testing, EKG and chest x-ray. EKG is reassuring. Patient has history of slightly elevated white blood cell counts and today elevated at 17, hematocrit 39, platelets of 521. Left shift is present. Sodium 133, potassium 3.2, chloride 97, bicarb 27, BUN 15, creatinine 0.7. Glucose 130, troponin negative, D-dimer 333. Chest x-ray without focal infiltrate and no acute pulmonary findings. Patient is improving. We will sign the patient out to Dr. Lazaro Tapia pending repeat cardiac enzyme. Please see his note regarding final impression and disposition. 16: 04 patient resting comfortably asymptomatic. 2 troponins negative. Labs and imaging unremarkable. Patient feeling better and will follow-up with her primary care physician. Given home care instructions and return precautions. HPI <Jarad Sanchez MD - Last Filed: 09/11/22 14:59> General Mode of arrival: ambulatory. Date/Time Provider Initiated Documentation: 09/11/22 12:47. Limitations to Documentation: no limitations. Information obtained by: patient. History of Present Illness 67 year old F presents to the emergency department with the chief complaint of Intermittent chest pain for 1 month or more, described as moderate, and is localized to the chest. Patient extremity. Patient started experiencing this week(s) and it has been intermittent. No relieving factors improve symptom(s), No exacerbating factors reported . Patient notes chest pain, shortness of breath and weakness; denies confusion, cough, diaphoresis, nausea/vomiting, rash and syncope. Patient did receive the following treatments prior to arrival, none Related Data Home Medications Medication Instructions Recorded Confirmed Chaga Tea 1 ea PO QID 10/21/15 05/16/22 naproxen 250 mg tablet 250 - 500 mg PO BID PRN Moderate 03/17/21 09/11/22 pain or swelling #20 tabs ibuprofen 600 mg tablet 600 mg PO Q6H PRN #180 tab-caps 02/24/22 09/11/22 Symbicort 160 mcg-4.5 2 puff inhalation BID #10.2 grams 05/16/22 09/11/22 mcg/actuation HFA aerosol inhaler (budesonide-formoterol) albuterol sulfate 90 mcg/actuation 2 puff inhalation Q4H PRN ##1 05/16/22 09/11/22 aerosol inhaler (ProAir HFA) amlodipine 10 mg tablet 10 mg PO DAILY #90 tab-caps 05/16/22 09/11/22 hydrochlorothiazide 25 mg tablet 25 mg PO DAILY hypertension #90 05/16/22 09/11/22 tabs levothyroxine 75 mcg tablet 75 mcg PO DAILY #90 tabs 05/16/22 09/11/22 potassium chloride 20 mEq 20 meq PO DAILY #90 tabs 06/07/22 09/11/22 tablet,extended release arnica ml topical 09/11/22 Previous Rx's Medication Instructions Recorded naproxen 250 mg tablet 250 - 500 mg PO BID PRN Moderate 03/17/21 pain or swelling #20 tabs ibuprofen 600 mg tablet 600 mg PO Q6H PRN #180 tab-caps 02/24/22 Symbicort 160 mcg-4.5 2 puff inhalation BID #10.2 grams 05/16/22 mcg/actuation HFA aerosol inhaler (budesonide-formoterol) albuterol sulfate 90 mcg/actuation 2 puff inhalation Q4H PRN ##1 05/16/22 aerosol inhaler (ProAir HFA) amlodipine 10 mg tablet 10 mg PO DAILY #90 tab-caps 05/16/22 hydrochlorothiazide 25 mg tablet 25 mg PO DAILY hypertension #90 05/16/22 tabs levothyroxine 75 mcg tablet 75 mcg PO DAILY #90 tabs 05/16/22 potassium chloride 20 mEq 20 meq PO DAILY #90 tabs 10/12/22 tablet,extended release Allergies Allergy/AdvReac Type Severity Reaction Status Date / Time meloxicam [From Mobic] Allergy Intermediate NAVARRO's, Hives Verified 09/11/22 12:55 diazepam [From Valium] Allergy Mild Skin Rash Verified 09/11/22 12:55 nortriptyline AdvReac Intermediate Irritability Verified 09/11/22 12:55 and dizziness tramadol AdvReac Mild Lightheaded Verified 09/11/22 12:55 ness doxycycline AdvReac Tingling Verified 09/11/22 12:55 in hands gabapentin AdvReac Dizziness Verified 09/11/22 12:55 General Stated Complaint: Chest Pain CLARIBEL: 2 Review of Systems <Jarad Sanchez MD - Last Filed: 09/11/22 14:59> Narrative: Denies fever, chills, cough. No recent travel. No leg pain or swelling. Describes intermittent episodes of chest discomfort and back discomfort. This morning had discomfort going down her left arm for approximately 10 minutes. No headache, no difficulty with speech. 8 systems were reviewed and otherwise negative PFSH <Jarad Sanchez MD - Last Filed: 09/11/22 14:59> All Active Problems (Updated 09/11/22 @ 16:05 by Taj Coto MD) Chest pain (Acute) Suprapubic pain (Acute) COVID-19 (Acute) 02/01/22 Vaccinated with one booster Laceration of finger of right hand with tendon involvement (Acute 03/17/21) Lymphadenopathy (Acute) Lumbar disc prolapse with compression radiculopathy (Chronic 08/27/12) spinal stenosis r leg radiculopathy Hypothyroidism (Chronic 04/08/13) Thyroid orbitopathy Fibromyalgia syndrome (Chronic 01/22/14) elevated MATTHEW 06/12/14;DNA DOUBLE STRANDED Ab, IgG; 177 Cardiolipin IgM; Indeterminate 12.5 Essential hypertension (Chronic 06/11/13) Chronic obstructive lung disease (Chronic) Cervical spondylosis (Chronic 08/27/12) Annual physical exam (Acute 06/03/15) Alcohol intake above recommended sensible limits (Acute 04/14/14) Abnormal WBC count (Chronic 11/12/14) Medical History Closed fracture of humerus right 11/04/07 Closed fracture of humerus (11/04/07) COPD (chronic obstructive pulmonary disease) Discoid lupus erythematosus Suspected 11/04/07 Discoid lupus erythematosus (11/04/07) Essential hypertension Fibromyalgia Graves disease (06/12/13) 1981 WITH ABLATION; NOW ON REPLACEMENT H/O bone density study good 08/27/02 Hand joint pain 11/04/07 Hand joint pain (11/04/07) History of bone density study Hypothyroidism s/p ablation for grave's disease Left inguinal hernia Smoker Smoker (11/04/07) Therapeutic procedure nerve root block and steroid injection--right S-1 04/07/15 Thoracic back pain Thrombocytosis Unilateral inguinal hernia, without obstruction or gangrene, not specified as recurrent (10/01/15) Weight loss, abnormal (04/23/17) Surgical History BONE DENSITY TEST (~2002) GOOD CYST REMOVAL (~1977) WRIST H/O prior ablation treatment Graves Disease 08/27/81 H/O removal of cyst wrist History of prior ablation treatment History of removal of cyst Hysterectomy, Laproscopic (~1981) for heavy bleeding; still has both ovaries Recurrent major depression in partial remission (~1981) FOR GRAVES DISEASE Repair of inguinal hernia (06/21/16) 06/21/16 removal of old mesh and repair 11/24/15; LEFT S/P laparoscopic hysterectomy for heavy bleeding; both ovaries remain S/P unilateral inguinal hernia repair left 11/24/15 Status post laparoscopic hysterectomy Status post unilateral inguinal hernia repair (11/24/15) Family History Mother , RESPIRATORY at age 78. Essential hypertension Mental disorder dementia Asthma Father , ETOH at age 56. Alcohol abuse Sister Essential hypertension Brother Asthma Maternal Grandfather , age 68 Essential hypertension Paternal Grandfather Diabetes Maternal Grandmother , age 68 Essential hypertension Paternal Grandmother No problems noted. Son No problems noted. Son No problems noted. Social History Smoking/Tobacco Use Status: Former Tobacco Use tobacco type: cigarettes Quit Date: 04/30/94 Tobacco: How many years used: 23 Second Hand Exposure: Yes Smoking risk assessment performed?: Yes Alcohol Intake: current Alcohol Intake frequency: a few times a week Alcohol type: beer Drug use: Daily Substance use type: marijuana Household members: spouse and family Do you need help understanding health information?: Never Pets and animals: Yes Pets and animals: dog(s) Sexually active: No Do you think of yourself as: straight/heterosexual Current gender identity: female What is your relationship status?: How often do you talk on the phone with friends or family?: three or more times per week How often do you get together with friends or relatives?: three or more times per week How often do you attend mormon or yarsanism services?: 4 or more times per year Do you belong to any clubs or organized social groups?: no Panel score (0-1 are the most socially isolated patients): 2 Francesca/Zoroastrian: Restoration Special francesca needs: No Seatbelt use: always Drive intox 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 Pleasant, well groomed, interactive. HEAD: Normocephalic, atraumatic ENT: Mucous membranes moist, oropharynx unremarkable, External ear exam unremarkable EYES: PERRL, EOMI NECK: Full ROM, no ISAIAH, no menigismus CHEST/RESP: Nontender, clear to auscultation bilateral, no wheeze/rhonchi/rales CARDIOVASCULAR: RRR, no murmur, rub rocio. 2+ Rad pulse bilateral ABDOMEN: Soft, nontender, no mass. +Bowel sounds EXT: Full ROM, no edema, no rash Neuro: Grossly normal neurologic exam, conversant, interactive. Psych: Speech fluent, thoughts congruent, affect normal Course <Jarad Sanchez MD - Last Filed: 09/11/22 14:59> Vital Signs Vital signs: Vital Signs Pulse 97 H 09/11/22 12:52 Respiratory Rate 17 09/11/22 12:52 Blood Pressure 151/87 H 09/11/22 12:52 Pulse Oximetry 100 09/11/22 12:52 Pulse 97 H 09/11/22 12:52 Respiratory Rate 17 09/11/22 12:52 Blood Pressure 151/87 H 09/11/22 12:52 Blood Pressure Position Sitting 09/11/22 12:52 Pulse Oximetry 100 09/11/22 12:52 Oxygen Delivery Method Room Air 09/11/22 12:52 Oxygen Flow Rate 0 09/11/22 12:52 Pain Level 0 09/11/22 12:52 Sign Out <Jarad Sanchez MD - Last Filed: 09/11/22 14:59> Sign Out Data: Sign Out Comment: Repeat giuliano, UA Last updated by Jarad Sanchez MD at 09/11/22 15:09
[2022-09-11 13:22] VITALS: BP 149/60; PULSE 89; RESP 20; TEMP 37; O2SAT 99
[2022-09-11 13:27] LABS: Abs Immature Grans 0.06 10^3/uL (0.0-0.06); Absolute Eosinophil Count 0.35 10^3/uL (0.0-0.7); Absolute Lymphocyte Count 2.38 10^3/uL (1.2-3.4); Basophils % 0.6; HCT 39.9 % (36.0-46.0); HGB 13.6 g/dL (11.2-15.7); Immature Grans % 0.3; Lymphocytes % 13.7; MCH 31.1 pg (27.0-33.0); MCHC 34.1 % (32.0-36.0); MCV 91 fL (80-95); MPV 9.4 fL (8.0-11.0); Monocytes % 6.9; Neutrophils % 76.5; Platelet Count 521 10^3/uL (130-400); RBC 4.37 10^6/uL (3.93-5.22); RDW 13.4 % (11.7-14.6); RDW-SD 45.9 fL; WBC 17.38 10^3/uL (4.4-10.8)
[2022-09-11 13:46] LABS: ALT 50 U/L (14-59); AST 18 U/L (15-37); Albumin 3.9 g/dL (3.4-5.0); Alkaline Phosphatase 123 U/L (46-116); Anion Gap 8.2 mmol/L (3-11); BUN 15 mg/dL (7-18); Bilirubin, Total 0.5 mg/dL (0.2-1.0); CO2 27.8 mmol/L (21.0-32.0); CREATININE 0.7 mg/dL (0.55-1.02); Chloride 97 mmol/L (98-107); Estimated GFR 95.32 (mL/min/1.73m2); Glucose 130 mg/dL (74-106); Potassium 3.2 mmol/L (3.5-5.1); Sodium 133 mmol/L (136-145); Total Protein 7.5 g/dL (6.4-8.2); Troponin I < 50 ng/L (<or=60)
[2022-09-11 14:42] LABS: D-Dimer 333 ng/mlFEU (<500)
[2022-09-11 15:26] LABS: Bilirubin Negative (Negative); Blood Negative (Negative); Clarity Clear (Clear); Glucose Negative (Negative); Ketones 15 mg/dL (Negative); Leukocyte Esterase Negative (Negative); Nitrite Negative (Negative); Specific Gravity <= 1.005 (1.005-1.025); Urobilinogen 0.2 EU/dL (Up TO 0.2)
[2022-09-11 15:52] LABS: Troponin I < 50 ng/L (<or=60)
[2022-09-11 16:08] VITALS: BP 146/86; PULSE 83; RESP 16; TEMP 36.7; O2SAT 97
== END 2022-09-11 16:18 | disposition home or self-care (01) ==
PROVIDERS: Emergency Medicine; Emergency Provider Emergency Medicine; PCP Family Medicine
DX: R07.89 Other chest pain (principal); M79.602 Pain in left arm; D72.829 Elevated white blood cell count, unspecified; J44.9 Chronic obstructive pulmonary disease, unspecified; I10 Essential (primary) hypertension; E03.9 Hypothyroidism, unspecified
CPT/HCPCS: 36415; 80053; 93005; 99283; 71046; 81003; 83735; 84484; 85025; 85379; 93010; 99285

== ENCOUNTER 2022-09-26 03:19 | Outpatient (CLI) | payer MEDICARE, SELFPAY ==
[2022-09-26 12:33] LABS: HCT 42.6 % (36.0-46.0); HGB 14.3 g/dL (11.2-15.7); MCH 30.6 pg (27.0-33.0); MCHC 33.6 % (32.0-36.0); MCV 91 fL (80-95); Platelet Count 596 10^3/uL (130-400); RBC 4.68 10^6/uL (3.93-5.22); RDW 13.6 % (11.7-14.6); RDW-SD 45.7 fL; WBC 14.22 10^3/uL (4.4-10.8)
[2022-09-26 12:34] LABS: ESR 32 mm/hr (0-30)
[2022-09-26 12:53] LABS: ALT 27 U/L (14-59); AST 20 U/L (15-37); Albumin 3.9 g/dL (3.4-5.0); Alkaline Phosphatase 103 U/L (46-116); Anion Gap 8.5 mmol/L (3-11); BUN 12 mg/dL (7-18); Bilirubin, Total 0.7 mg/dL (0.2-1.0); CO2 27.5 mmol/L (21.0-32.0); CREATININE 0.7 mg/dL (0.55-1.02); Calcium 9.7 mg/dL (8.5-10.1); Chloride 101 mmol/L (98-107); Estimated GFR 95.32 (mL/min/1.73m2); Glucose 103 mg/dL (74-106); Potassium 3.7 mmol/L (3.5-5.1); Sodium 137 mmol/L (136-145); TSH (W/Ref FT4) 3.73 uIU/mL (0.36-3.74); Total Protein 7.5 g/dL (6.4-8.2)
[2022-09-26 12:55] LABS: C-Reactive Protein < 0.05 mg/dL (0.0-0.3)
== END 2022-09-26 03:20 | disposition home or self-care (01) ==
LOC: LOS 03:19
PROVIDERS: PCP Family Medicine; Visit Provider Family Medicine
DX: I10 Essential (primary) hypertension (principal); D72.9 Disorder of white blood cells, unspecified; R53.83 Other fatigue; M79.7 Fibromyalgia; R70.0 Elevated erythrocyte sedimentation rate
CPT/HCPCS: 36415; 80053; 85027; 85652; 84443; 86140

== ENCOUNTER → 2023-06-07 00:49 | Outpatient (CLI) | payer MEDICARE, SELFPAY ==
--- NOTE | 2023-06-07 06:18 | DI.US_ITS ---
Exam(s) US PELVIS TRANSVAGINAL EXAM: US PELVIS TRANSVAGINAL CLINICAL HISTORY: pelvic pain,R10.2. TECHNIQUE: Transabdominal and transvaginal pelvic ultrasound was performed using standard protocol. COMPARISON: US US PELVIS TRANSVAGINAL from 06/06/2022 FINDINGS: UTERUS: Status post hysterectomy. OVARIES: The ovaries cannot be visualized on this examination. No suspicious adnexal masses are seen . CUL-DE-SAC: Free fluid: None. Other: None. IMPRESSION: 1. Status post hysterectomy. 2. The ovaries could not be visualized on this examination. 3. No adnexal masses are seen sonographically. DATA REPOSITORY:
== END ==
PROVIDERS: PCP Family Medicine; Visit Provider Family Medicine
DX: R10.2 Pelvic and perineal pain (principal); Z90.710 Acquired absence of both cervix and uterus
CPT/HCPCS: 76830; 76856

== ENCOUNTER 2023-08-30 03:47 | Outpatient (CLI) | payer MEDICARE, SELFPAY ==
[2023-08-30 13:32] LABS: ALT 31 U/L (14-59); AST 18 U/L (15-37); Albumin 3.7 g/dL (3.4-5.0); Alkaline Phosphatase 86 U/L (46-116); Anion Gap 6.5 mmol/L (3-11); BUN 12 mg/dL (7-18); CO2 30.5 mmol/L (21.0-32.0); CREATININE 0.6 mg/dL (0.55-1.02); Chloride 99 mmol/L (98-107); Estimated GFR 98.32 (mL/min/1.73m2); Glucose 98 mg/dL (74-106); Potassium 3.5 mmol/L (3.5-5.1); Sodium 136 mmol/L (136-145); Total Protein 7.5 g/dL (6.4-8.2)
[2023-08-30 13:56] LABS: Bilirubin, Total 0.5 mg/dL (0.2-1.0); Calcium 9.3 mg/dL (8.5-10.1); TSH (W/Ref FT4) 9.38 uIU/mL (0.36-3.74)
== END 2023-08-30 03:48 | disposition home or self-care (01) ==
LOC: LOS 03:47
PROVIDERS: PCP Family Medicine; Visit Provider Family Medicine
DX: E03.9 Hypothyroidism, unspecified (principal); I10 Essential (primary) hypertension
CPT/HCPCS: 36415; 80053; 84439; 84443

== ENCOUNTER 2023-12-17 09:01 | Outpatient (CLI) | payer MEDICARE, SELFPAY ==
[2023-12-17 12:25] LABS: C-Reactive Protein < 0.50 mg/dL (<or=0.5)
[2023-12-17 12:32] LABS: Abs Immature Grans 0.07 10^3/uL (0.0-0.06); Absolute Basophil Count 0.09 10^3/uL (0.0-0.2); Absolute Lymphocyte Count 2.22 10^3/uL (1.2-3.4); Absolute Monocyte Count 0.88 10^3/uL (0.1-0.8); Basophils % 0.6; Eosinophils % 2.4; HCT 42.6 % (36.0-46.0); HGB 14.3 g/dL (11.2-15.7); Immature Grans % 0.5; Lymphocytes % 14.9; MCH 30.4 pg (27.0-33.0); MCHC 33.6 % (32.0-36.0); MCV 91 fL (80-95); MPV 9.9 fL (8.0-11.0); Monocytes % 5.9; Neutrophils % 75.7; Platelet Count 507 10^3/uL (130-400); RDW 14.8 % (11.7-14.6); RDW-SD 49.2 fL; WBC 14.89 10^3/uL (4.4-10.8)
[2023-12-17 12:34] LABS: Absolute Eosinophil Count 0.36 10^3/uL (0.0-0.7); Absolute Neutrophil Count 11.27 10^3/uL (1.2-6.7)
[2023-12-17 12:37] LABS: ESR 32 mm/hr (0-30)
[2023-12-18 15:20] LABS: Albumin 60.5 % (55.8-66.1); Albumin g/dL 4.3 g/dL (3.6-5.2); Total Protein 7.1 g/dL (6.3-8.2)
== END 2023-12-17 09:02 | disposition home or self-care (01) ==
LOC: LOS 09:02
PROVIDERS: PCP Family Medicine; Referring Provider Family Medicine; Visit Provider Family Medicine
DX: M25.59 Pain in other specified joint (principal); D72.829 Elevated white blood cell count, unspecified
CPT/HCPCS: 36415; 85652; 84165; 85025; 86140

== ENCOUNTER 2024-01-25 17:33 | Emergency (ER) | payer MEDICARE, SELFPAY ==
--- NOTE | 2024-01-25 17:30 | RT.EKG_ITS ---
APPROVED REPORT Exam: Resting ECG Reason for Exam: Chest pain Patient Location: E HR:82 bpm ECG Measurements Heart Rate 82 AXIS [place] 139 P 73 QRSd 89 QRS 16 QT 410 T 19 QTc 479 Conclusion Sinus rhythm...normal P axis, V-rate 60- 99 Probable left atrial enlargement...P >50mS, <-0.10mV V1 Compared to prior dated last year low voltage appears similar. Poor R wave progression. Suspect navjot d misplacement V2 and V3. No acute injury pattern.
[2024-01-25 17:38] VITALS: BP 165/91; PULSE 89; RESP 18; TEMP 37; O2SAT 99
[2024-01-25 17:47] VITALS: RESP 16
--- NOTE | 2024-01-25 17:54 | W.ED.GENAD ---
Discharge Plan Disposition Patient Disposition: Against Medical Advice Discharge Details Clinical Impression: Chest pain, unspecified Primary Care Provider: Ana Campos ED Provider: Wayne Bazan Home Meds and New Rx's Prescriptions: Continued Shingrix (PF) 50 mcg/0.5 mL suspension for reconstitution 0.5 ml IM ONCE Qty: 1 1RF Rx Instructions: as a single dose. Repeat in 2 months cholecalciferol (vitamin D3) 10 mcg (400 unit) capsule 20 mcg PO DAILY chaga tea 1 ea PO QID hydrochlorothiazide 25 mg tablet 25 mg PO DAILY Qty: 90 3RF amlodipine 10 mg tablet 10 mg PO DAILY Qty: 90 12RF potassium chloride 20 mEq tablet extended release 20 meq PO DAILY Qty: 90 5RF budesonide-formoterol [Symbicort] 160-4.5 mcg/actuation HFA aerosol inhaler 2 puff inhalation BID Qty: 10.2 12RF levothyroxine 75 mcg tablet 75 mcg PO DAILY Qty: 90 1RF ibuprofen 600 mg tablet 600 mg PO Q6H PRN Qty: 180 0RF albuterol sulfate [ProAir HFA] 90 mcg/actuation HFA aerosol inhaler 2 puff Inhalation Q4H PRN Qty: 1 12RF naproxen 250 mg tablet 250 - 500 mg PO BID PRN (Reason: Moderate pain or swelling) Qty: 20 0RF aspirin 325 mg capsule 325 mg PO ONCE arnica Tincture 1 ml topical DAILY Discharge Instructions Instructions: Chest Pain (ED) Additional Instructions: You were seen in the emergency department for chest pain. Your initial blood work showed no sign of damage to your heart. You are advised to stay in the emergency department for repeat blood test. You left AGAINST MEDICAL ADVICE. As we discussed if you would like to receive care please return at any point. Please also return if your chest pain returns if you pass out or if you have any other concerns. Otherwise please follow-up with your primary care provider next week. Discharge Data Discharge Date/Time-TO BE ENTERED AT DEPARTURE: 01/25/24 19:43 HPI General Date/Time Provider Initiated Documentation: 01/25/24 17:51. HPI Narrative: MDM This is an overall well-appearing normothermic and not tachycardic 68-year-old with symptoms concerning for ACS given IV sensation with diaphoresis for which patient will receive 2 sets of troponins but no additional aspirin as patient reportedly received 324 mg of prehospital aspirin. No tearing quality to suggest aortic dissection. No fevers to suggest pneumonia and no cough. No pain or proportion to suggest necrotizing soft tissue infection. Patient is not a dialysis patient and is not hypotensive so I am not suspicious for tamponade. I considered PE however the patient was not short of breath tachycardic nor hypoxic so I did not send a D-dimer. No epigastric tenderness to suggest pancreatitis and no elevated BMI. No vomiting to suggest esophageal rupture. No trauma to chest to suggest pneumothorax. Patient does have risk factors for coronary artery disease given hypertension marijuana use and family history so we will obtain 2 sets of troponins. 6:45 PM Negative troponin. Basic metabolic panel showing hypokalemia with a serum potassium of 2.9 for which patient will receive both IV and oral repletion. Mild hyperglycemia but no anion gap and normal bicarbonate??not consistent with DKA. No DEANNA. CBC with mild leukocytosis and thrombocytosis. No anemia. 8 PM Patient is on outpatient potassium repletion and she takes hydrochlorothiazide. I was planning on providing her with IV potassium. She felt anxious in the emergency department requested to leave. I counseled her that there is risk of her developing acute coronary syndrome as we did not have repeat troponin. 1. I explained the current situation and condition to the patient. 2. I explained the recommended treatment for this condition -repeat troponin 3. I explained the risk of not having the recommended treatment -acute coronary syndrome 4. The patient understands this information has no questions, and repeated back this information. 5. The patient states that they need to leave and will return if their symptoms worsen 6. Mental status is lucid and the patient has decision-making capacity. 7. Patient is withdrawing her consent for care HPI This is a 68-year-old female with history of hypertension but not hyperlipidemia nor diabetes no coronary artery disease arrived to the emergency department via private vehicle in setting of epigastric pain. Patient had pain when she laid down. She began sweating profusely. She said that the pain was also between her shoulder blades. She said that it felt like a pressure. She took 324 mg of aspirin. She felt nauseous. She did not vomit. She was not feeling short of breath. Family history significant for coronary artery disease in the patient's sister when she was 8 years old. No prior history of similar symptoms. No recent falls. No cough. No fevers. No abdominal pain nor vomiting. Patient does drink 1-2 drinks of alcohol every day but denies history of withdrawal from ethanol. Exam General: Well-appearing in no acute distress speaking in complete sentences. Head: Normocephalic, atraumatic. Eye: Extraocular eye movements intact. No conjunctival injection. No scleral icterus. Ear, nose, mouth, throat: Grossly normal inspection. Normal voice, handling secretions normally. Neck: Trachea midline. Cardiovascular: Well-perfused distal extremities. Regular rate and rhythm Respiratory: Nonlabored respiration.Clear lungs bilaterally. Gastrointestinal: Nondistended abdomen. Soft nontender Musculoskeletal: No edema. Moving all 4 extremities spontaneously. Skin: Normal for age and race, grossly normal temperature and turgor. No acute rash. Neurologic: Alert and appropriate, no apparent acute deficits. GCS 15. Psychiatric: Mood and manner are appropriate. Grooming and personal hygiene are appropriate. Related Data Home Medications Medication Instructions Recorded Confirmed Chaga Tea 1 ea PO QID 10/21/15 01/25/24 naproxen 250 mg tablet 250 - 500 mg (1 - 2 x 250 mg) PO 03/17/21 01/25/24 BID PRN Moderate pain or swelling #20 tabs arnica 1 ml topical DAILY 09/11/22 01/25/24 cholecalciferol (vitamin D3) 10 20 mcg PO DAILY 09/21/22 01/25/24 mcg (400 unit) capsule varicella-zoster glycoE [id number] 0.5 ml IM ONCE #1 ea 10/23/22 01/25/24 adj(PF) 50 mcg/0.5 mL IM susp, kit (Shingrix (PF)) Symbicort 160 mcg-4.5 2 puff inhalation BID #10.2 grams 05/22/23 01/25/24 mcg/actuation HFA aerosol inhaler (budesonide-formoterol) amlodipine 10 mg tablet 10 mg PO DAILY #90 tab-caps 05/22/23 01/25/24 hydrochlorothiazide 25 mg tablet 25 mg PO DAILY hypertension #90 05/22/23 01/25/24 tabs potassium chloride 20 mEq 20 meq PO DAILY #90 tabs 05/22/23 01/25/24 tablet,extended release levothyroxine 75 mcg tablet 75 mcg PO DAILY #90 tabs 08/17/23 01/25/24 albuterol sulfate 90 mcg/actuation 2 puff inhalation Q4H PRN ##1 10/05/23 01/25/24 aerosol inhaler (ProAir HFA) ibuprofen 600 mg tablet 600 mg PO Q6H PRN #180 tab-caps 10/05/23 01/25/24 aspirin 325 mg capsule 325 mg PO ONCE 01/25/24 01/25/24 Previous Rx's Medication Instructions Recorded naproxen 250 mg tablet 250 - 500 mg (1 - 2 x 250 mg) PO 03/17/21 BID PRN Moderate pain or swelling #20 tabs varicella-zoster glycoE [id number] 0.5 ml IM ONCE #1 ea 10/23/22 adj(PF) 50 mcg/0.5 mL IM susp, kit (Shingrix (PF)) Symbicort 160 mcg-4.5 2 puff inhalation BID #10.2 grams 05/22/23 mcg/actuation HFA aerosol inhaler (budesonide-formoterol) amlodipine 10 mg tablet 10 mg PO DAILY #90 tab-caps 05/22/23 hydrochlorothiazide 25 mg tablet 25 mg PO DAILY hypertension #90 05/22/23 tabs potassium chloride 20 mEq 20 meq PO DAILY #90 tabs 05/22/23 tablet,extended release levothyroxine 75 mcg tablet 75 mcg PO DAILY #90 tabs 08/17/23 albuterol sulfate 90 mcg/actuation 2 puff inhalation Q4H PRN ##1 10/05/23 aerosol inhaler (ProAir HFA) ibuprofen 600 mg tablet 600 mg PO Q6H PRN #180 tab-caps 10/05/23 Allergies Allergy/AdvReac Type Severity Reaction Status Date / Time meloxicam [From Mobic] Allergy Intermediate NAVARRO's, Hives Verified 01/25/24 17:53 diazepam [From Valium] Allergy Mild Skin Rash Verified 01/25/24 17:53 nortriptyline AdvReac Intermediate Irritability Verified 01/25/24 17:53 and dizziness tramadol AdvReac Mild Lightheaded Verified 01/25/24 17:53 ness doxycycline AdvReac Tingling Verified 01/25/24 17:53 in hands gabapentin AdvReac Dizziness Verified 01/25/24 17:53 General Stated Complaint: Epigastric Pain/Over45 CLARIBEL: 3 Course Vital Signs Vital signs: Vital Signs Temperature 37.0 C 01/25/24 17:38 Pulse 89 01/25/24 17:38 Respiratory Rate 18 01/25/24 17:38 Blood Pressure 165/91 H 01/25/24 17:38 Pulse Oximetry 99 01/25/24 17:38 Temperature 37.0 C 01/25/24 17:38 Temperature Source Tympanic 01/25/24 17:38 Pulse 89 01/25/24 17:38 Respiratory Rate 16 01/25/24 17:47 Respiratory Effort Normal, Non-Labored 01/25/24 17:51 Respiratory Depth Normal 01/25/24 17:47 Respiratory Pattern Normal 01/25/24 17:47 Blood Pressure 165/91 H 01/25/24 17:38 Blood Pressure Position Sitting 01/25/24 17:38 Pulse Oximetry 99 01/25/24 17:38 Oxygen Delivery Method Room Air 01/25/24 17:38 Oxygen Flow Rate 0 01/25/24 17:38 Pain Level 5 01/25/24 17:47 Medical Decision Making Quality:SDOH Health Related Social Needs: No Data to Display PFSH All Active Problems (Updated 01/25/24 @ 19:15 by Wayne Bazan MD) Chest pain, unspecified (Acute) Inflammation and stiffening of spine (Acute) Arthralgia (Acute) Pelvic pain in female (Acute) Shingles (Acute) Exhaustion (Acute) Suprapubic pain (Acute) COVID-19 (Acute) 02/01/22 Vaccinated with one booster Laceration of finger of right hand with tendon involvement (Acute 03/17/21) Lymphadenopathy (Acute) Lumbar disc prolapse with compression radiculopathy (Chronic 08/27/12) spinal stenosis r leg radiculopathy Hypothyroidism (Chronic 04/08/13) Thyroid orbitopathy Fibromyalgia syndrome (Chronic 01/22/14) elevated MATTHEW 06/12/14;DNA DOUBLE STRANDED Ab, IgG; 177 Cardiolipin IgM; Indeterminate 12.5 Essential hypertension (Chronic 06/11/13) Chronic obstructive lung disease (Chronic) Cervical spondylosis (Chronic 08/27/12) Annual physical exam (Acute 06/03/15) Alcohol intake above recommended sensible limits (Acute 04/14/14) Abnormal WBC count (Chronic 11/12/14) Medical History Closed fracture of humerus right 11/04/07 Closed fracture of humerus (11/04/07) COPD (chronic obstructive pulmonary disease) Discoid lupus erythematosus Suspected 11/04/07 Discoid lupus erythematosus (11/04/07) Essential hypertension Fibromyalgia Graves disease (06/12/13) 1981 WITH ABLATION; NOW ON REPLACEMENT H/O bone density study good 08/27/02 Hand joint pain 11/04/07 Hand joint pain (11/04/07) History of bone density study Hypothyroidism s/p ablation for grave's disease Left inguinal hernia Smoker Smoker (11/04/07) Therapeutic procedure nerve root block and steroid injection--right S-1 04/07/15 Thoracic back pain Thrombocytosis Unilateral inguinal hernia, without obstruction or gangrene, not specified as recurrent (10/01/15) Weight loss, abnormal (04/23/17) Surgical History BONE DENSITY TEST (~2002) GOOD CYST REMOVAL (~1977) WRIST H/O prior ablation treatment Graves Disease 08/27/81 H/O removal of cyst wrist History of prior ablation treatment History of removal of cyst Hysterectomy, Laproscopic (~1981) for heavy bleeding; still has both ovaries Recurrent major depression in partial remission (~1981) FOR GRAVES DISEASE Repair of inguinal hernia (06/21/16) 06/21/16 removal of old mesh and repair 11/24/15; LEFT S/P laparoscopic hysterectomy for heavy bleeding; both ovaries remain S/P unilateral inguinal hernia repair left 11/24/15 Status post laparoscopic hysterectomy Status post unilateral inguinal hernia repair (11/24/15) Family History Mother , RESPIRATORY at age 78. Essential hypertension Mental disorder dementia Asthma Father , ETOH at age 56. Alcohol abuse Sister Essential hypertension Brother Asthma Maternal Grandfather , age 68 Essential hypertension Paternal Grandfather Diabetes Maternal Grandmother , age 68 Essential hypertension Paternal Grandmother No problems noted. Son No problems noted. Son No problems noted. Social History (Updated 01/07/24 @ 16:36 by Emilie Bonds) Smoking/Tobacco Use Status: Former Tobacco Use tobacco type: cigarettes Quit Date: 04/30/94 Tobacco: How many years used: 23 Second Hand Exposure: Yes Smoking risk assessment performed?: Yes Alcohol Intake: current Alcohol Intake frequency: a few times a week Alcohol type: beer Drug use: Daily Substance use type: marijuana Household members: spouse and family Do you need help understanding health information?: Never Pets and animals: Yes Pets and animals: dog(s) Sexually active: No Do you think of yourself as: straight/heterosexual Current gender identity: female What is your relationship status?: How often do you talk on the phone with friends or family?: three or more times per week How often do you get together with friends or relatives?: three or more times per week How often do you attend episcopalian or adventist services?: 4 or more times per year Do you belong to any clubs or organized social groups?: no Panel score (0-1 are the most socially isolated patients): 2 Francesca/Congregational: Orthodox Special francesca needs: No Seatbelt use: always Drive intox 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 route sales driver: No Do you feel safe at home: Yes Do you feel safe in your relationship?: Yes Victim of physical abuse: No Victim of emotional abuse: No Victim of sexual abuse: No PAWSS Have you Been Recently Intoxicated or Drunk Within the Last 30 days?: No Have you Ever Experienced Previous Episodes of Alcohol Withdrawal?: No Have you ever Experienced Withdrawal Seizures?: No Have you ever Experienced Delirium Tremens(DT)s?: No Have you ever undergone Alcohol Rehabilitation Treatment (i.e, inpt ot outpatient treatment programs)?: No Have you ever Experienced Blackouts?: No Have you ever Combined Alcohol with other Downers within the last 90 days?: No Have you ever Combined Alcohol with any other Substance of Abuse during the last 90 days?: No Positive Blood Alcohol level on Presentation? [PCS.BAL]: Unable to Obtain Evidence of Increased Autonomic Activity (i.e. HR>120, tremor, sweating, agitation, nausea)?: No Result: 0
[2024-01-25 18:11] LABS: Abs Immature Grans 0.09 10^3/uL (0.0-0.06); Absolute Lymphocyte Count 2.74 10^3/uL (1.2-3.4); Absolute Monocyte Count 1.04 10^3/uL (0.1-0.8); Absolute Neutrophil Count 10.36 10^3/uL (1.2-6.7); Basophils % 0.5 %; Eosinophils % 2.5 %; HCT 39.6 % (36.0-46.0); HGB 13.5 g/dL (11.2-15.7); Immature Grans % 0.6 %; Lymphocytes % 18.7 %; MCH 30.6 pg (27.0-33.0); MCHC 34.1 % (32.0-36.0); MCV 90 fL (80-95); MPV 8.8 fL (8.0-11.0); Monocytes % 7.1 %; Neutrophils % 70.6 %; Platelet Count 530 10^3/uL (130-400); RBC 4.41 10^6/uL (3.93-5.22); RDW 14.5 % (11.7-14.6); RDW-SD 47.8 fL; WBC 14.67 10^3/uL (4.4-10.8)
[2024-01-25 18:12] LABS: Absolute Basophil Count 0.07 10^3/uL (0.0-0.2); Absolute Eosinophil Count 0.37 10^3/uL (0.0-0.7)
--- NOTE | 2024-01-25 18:14 | DI.RAD_ITS ---
Exam(s) XR PORTABLE CHEST AP EXAM: XR PORTABLE CHEST AP CLINICAL HISTORY: CP TECHNIQUE: 2D digital imaging was performed of the chest. One image was obtained. An AP view was ob tained. COMPARISON: CR XR CHEST 2V PA LATERAL from 09/11/2022 FINDINGS: MEDIASTINUM: Normal. HEART: Normal. PULMONARY VASCULATURE: Normal. LUNGS: Clear. PLEURAL SPACE: No pleural effusion or pneumothorax. BONE:Within normal limits for the patient's age. OTHER FINDINGS:Normal. IMPRESSION: No acute pulmonary findings. DATA REPOSITORY: RADIATION DOSE DELIVERED:
[2024-01-25 18:17] VITALS: PULSE 89; RESP 15; O2SAT 98
[2024-01-25 18:20] VITALS: PULSE 89; RESP 12; O2SAT 98
[2024-01-25 18:28] LABS: Anion Gap 10.2 mmol/L (3-11); BUN 15 mg/dL (7-18); CO2 26.8 mmol/L (21.0-32.0); CREATININE 0.6 mg/dL (0.55-1.02); Calcium 9.6 mg/dL (8.5-10.1); Chloride 97 mmol/L (98-107); Estimated GFR 98.32 (mL/min/1.73m2); Glucose 119 mg/dL (74-106); Sodium 134 mmol/L (136-145); Troponin I < 50 ng/L (< or =60)
--- NOTE | 2024-01-25 18:31 | DI.VRAD_ITS ---
PROCEDURE INFORMATION: Exam: XR Chest Exam date and time: 01/25/2024 18:08 Age: 68 years old Clinical indication: Chest pressure; Patient HX: Chest pain TECHNIQUE: Imaging protocol: Radiologic exam of the chest. Views: 1 view. COMPARISON: CR XR CHEST 2V PA LATERAL 09/11/2022 13:47 FINDINGS: Lungs: No consolidation. Possible slight hyperinflation would be similar to prior. Pleural spaces: No pleural effusion. No pneumothorax. Heart/Mediastinum: No cardiomegaly. Bones/joints: No acute fracture. IMPRESSION: Negative portable chest. Dictated and Authenticated by: Yudith Durand MD. Ordering:QING Black MD
[2024-01-25 18:32] LABS: Potassium 2.9 mmol/L (3.5-5.1)
[2024-01-25] MEDS: Potassium Chloride 20 MEQ TABCR 40 MEQ PO (19:34)
[2024-01-25 19:40] VITALS: BP 140/74; PULSE 82; RESP 18
== END 2024-01-25 19:43 | disposition left against medical advice (07) ==
PROVIDERS: Emergency Provider Emergency Medicine; PCP Family Medicine
DX: R07.9 Chest pain, unspecified (principal); E87.6 Hypokalemia; J44.9 Chronic obstructive pulmonary disease, unspecified; I10 Essential (primary) hypertension; Z79.82 Long term (current) use of aspirin; Z87.891 Personal history of nicotine dependence; Z53.29 Procedure and treatment not carried out because of patient's decision for other reasons
CPT/HCPCS: 36415; 80048; 93005; 99283; 71045; 84484; 85025; 93010

== ENCOUNTER 2024-01-26 18:52 | Emergency (ER) | payer MEDICARE, SELFPAY ==
[2024-01-26 18:56] VITALS: BP 161/78; PULSE 88; RESP 16; TEMP 36.6; O2SAT 99
--- NOTE | 2024-01-26 20:07 | NUR.NOTE ---
Patient LWBS stated to Araseli in Access that the reason why she was here was not an emergency.
== END 2024-01-26 19:55 | disposition home or self-care (01) ==
PROVIDERS: Emergency Provider Student in an Organized Health Care Education/Training Program; PCP Family Medicine
DX: R10.11 Right upper quadrant pain (principal); L93.0 Discoid lupus erythematosus; J44.9 Chronic obstructive pulmonary disease, unspecified; I10 Essential (primary) hypertension; E05.00 Thyrotoxicosis with diffuse goiter without thyrotoxic crisis or storm; Z53.21 Procedure and treatment not carried out due to patient leaving prior to being seen by health care provider

== ENCOUNTER 2024-02-01 05:16 | Outpatient (CLI) | payer MEDICARE, SELFPAY ==
[2024-02-01 12:58] LABS: ALT 212 U/L (14-59); AST 23 U/L (15-37); Albumin 3.9 g/dL (3.4-5.0); Alkaline Phosphatase 257 U/L (46-116); BUN 8 mg/dL (7-18); Bilirubin, Total 0.9 mg/dL (0.2-1.0); CREATININE 0.7 mg/dL (0.55-1.02); Calcium 9.7 mg/dL (8.5-10.1); Chloride 96 mmol/L (98-107); Estimated GFR 94.73 (mL/min/1.73m2); Glucose 114 mg/dL (74-106); Potassium 3.6 mmol/L (3.5-5.1); Sodium 135 mmol/L (136-145); TSH (W/Ref FT4) 7.56 uIU/mL (0.36-3.74); Total Protein 7.6 g/dL (6.4-8.2)
[2024-02-01 13:17] LABS: FREE T4 1.28 ng/dL (0.76-1.46)
== END 2024-02-01 05:17 | disposition home or self-care (01) ==
LOC: LOS 05:16
PROVIDERS: PCP Family Medicine; Visit Provider Family Medicine
DX: I10 Essential (primary) hypertension (principal); E03.9 Hypothyroidism, unspecified
CPT/HCPCS: 36415; 80053; 84439; 84443

== ENCOUNTER → 2024-02-08 01:18 | Outpatient (CLI) | payer MEDICARE, SELFPAY ==
--- NOTE | 2024-02-08 07:15 | DI.CT_ITS ---
Exam(s) CT ABDOMEN PELVIS W EXAM: CT ABDOMEN PELVIS W CLINICAL HISTORY: 2017,ILIAC ARTERY aneurysm,growing FEMORAL HERNIA RT SIDE. TECHNIQUE: Imaging Protocol: Axial computed tomography images with coronal and sagittal reformatted images were created and reviewed CONTRAST MATERIAL: Intravenous: Omnipaque-350 100cc Oral: Yes. Oral contrast was also administered for bowel opacification. COMPARISON: CT ABD PELVIS WITH CONTRAST from 05/01/2017 FINDINGS: VISUALIZED LUNG BASES: No nodules nor pleural effusions evident. ABDOMEN: There is no ascites. A small-moderate size hiatal hernia is now evident. LIVER: There is a small hypodensity in the right hepatic lobe adjacent to the gallbladder fossa measu ring 7 x 4 mm, slightly larger than 2017. I suspect this is probably a small hemangioma. No dilated intrahepatic ducts. GALLBLADDER/BILIARY: Multiple small densities are noted in the gallbladder lumen which are probably t iny gallstones, more evident than on prior 2017 study. There is no gallbladder wall edema nor perich olecystic fluid. CBD is not dilated. PANCREAS: No evidence of pancreatic mass nor dilatation of the pancreatic duct. SPLEEN: Spleen size is normal. There is a solitary calcified round lesion in the anterior aspect of the spleen again noted, exhibiting further calcification from 2017 and measuring approximately 1.0 x 1.2 cm. Appears to be a peripherally calcified cyst or other benign lesion. Splenic and portal vein s are patent. ADRENALS: There are no significant adrenal masses. KIDNEYS:No focal findings in the left kidney. Unchanged cyst in the medial cortex of the right kidne y is again noted measuring 1.1 x 1.2 cm, unchanged and not requiring further workup MIPS criteria. T here are no solid lesions in either kidney. No calculi. No hydronephrosis.. ABDOMINAL AORTA: The abdominal aorta is again noted be calcified and there is a fusiform infrarenal a bdominal aortic aneurysm just above the bifurcation which presently measures 2.2 cm, unchanged in siz e from previous. The common iliac arteries are calcified but not enlarged. LYMPH NODES:There is no retroperitoneal nor paraaortic adenopathy. ABDOMINAL WALL: There is a fat only containing right inguinal region hernia just medial to the femora l vein. This presently measures 2.7 x 2.0, larger than previous. Similar finding is not seen on the opposite-left side. GI: There is no evidence of bowel obstruction, free air, nor abscess. PELVIS: GI: No evidence of appendicitis.There is again noted extensive diverticulosis of the sigmoid without evidence of obvious acute diverticulitis. LYMPH NODES: There is no intrapelvic nor inguinal adenopathy. REPRODUCTIVE: Uterus is surgically absent. There are no abnormal adnexal masses nor free fluid in th e pelvis. URINARY BLADDER: Collapsed. No obvious findings. OSSEOUS: No fractures and no significant osseous lesions. Mild degenerative anterolisthesis L3 upon L4 and chronic advanced disc space narrowing L5-S1 without evidence of listhesis nor pars defects. IMPRESSION: 1. There are multiple small densities in the gallbladder lumen which probably represent tiny gallston es, not evident on the 2017 study. This should be further studied with ultrasound. The CBD is not d ilated. 2. There is a small 7 x 4 mm lesion in the liver adjacent to the gallbladder fossa which has appearan ce of probable hemangioma. If clinically indicated contrast views MRI can be performed for added spe cificity. There are no other focal findings in the liver. 3. Benign-appearing solitary calcified lesion in the measuring 1.0 x 1.2 cm. Probably a peripherally calcified cyst. 4. Stable appearance of the previously described small infrarenal abdominal aortic aneurysm immediate ly above the aortic bifurcation. This again exhibits maximum diameter of 2.2 cm. The common iliac a rteries are heavily calcified but not enlarged. 5. Fat containing right sided hernia just medial to the femoral vein. This contains fat but no denise l loops. No evidence of bowel obstruction. 6. Uterus is surgically absent. No abnormal adnexal masses. Other findings as above. RADIATION DOSE DELIVERED: Total DLP DATA REPOSITORY: All CT scans at this facility are submitted to the National Radiology Data Registry (NRDR) Dose Index Registry (DIR) with the [employer] (ACR). RADIATION OPTIMIZATION: All CT scans at this facility use at least one of these dose optimization te chniques: automated exposure control; mA and/or kV adjustment per patient size (includes targeted exa ms where dose is matched to clinical indication); or iterative reconstruction.
[2024-02-08] MEDS: Barium Sulfate 2% W/V-Berry Smoothie 450 ML BTL PO (08:54)
[2024-02-08] MEDS: Barium Sulfate 2% W/V-Creamy Vanilla Smoothie 450 ML BTL PO (08:55)
[2024-02-08] MEDS: Omnipaque 350 MG/ML 500 ML BTL-Imaging package IJ (10:43)
[2024-02-08] MEDS: Normal Saline - Diluent 50 ML VIAL IJ (10:43)
== END ==
PROVIDERS: PCP Family Medicine; Visit Provider Family Medicine
DX: K41.90 Unilateral femoral hernia, without obstruction or gangrene, not specified as recurrent (principal); I72.3 Aneurysm of iliac artery
CPT/HCPCS: 74177

== ENCOUNTER → 2024-02-11 01:50 | Outpatient (CLI) | payer MEDICARE, SELFPAY ==
--- NOTE | 2024-02-11 06:45 | DI.NM_ITS ---
APPROVED REPORT Exam: Exercise Treadmill Patient Location: Out-Patient Room/Bed: Stress Nurse: Jeanine Thomas RN Ordering Provider:REAL TALBOT, Contact Number: [phone] BMI: 19.27 Baseline Rhythm: Sinus Rhythm Indications: Chest pressure, Medical History Medical History: Fibromyalgia, COPD, HTN, aneurysm-iliac, hx of smoking Cardiac Medications: Albuterol sulfate, aspirin, hydrochlorothiazide, amlodipine, symbicort Allergies: Meloxicam, valium, nortriptyline, tramadol, doxycycline, gabapentin Cardiac Risk Factors: Family hx, HTN, COPD, former smoker Previous Cardiac Procedures: None Pretest Chest Pain Characteristics: 310 chest ache Exercise History: Indeterminate Physical Disabilities: None Lung Sounds: Diminished LLB Heart Sounds: Regular Stress Test Details Test: Exercise stress testing was performed using a Torres protocol. Nuclear Acquisition: Rest Tc-99m/Stress Tc-99m 1 day Rest Isotope: Tc-99m Sestamibi. Dose: 10.9 Date: 02/11/2024 Injection Time: 0920 Stress Isotope: Tc-99m Sestamibi. Dose: 30.5 Date: 02/11/2024 Injection Time: 1120 HR Resting HR Supine: 83 bpm Max Heart Rate (APMHR): 153.611562 bpm Resting HR Standin bpm Target HR (85% APMHR): 130.986016 bpm Max HR Achieved: 132 bpm % of APMHR: 86.27 Recovery HR: 94 bpm HR response to stress: Normal HR response to stress BP Resting BP Supine: 132/76 mmHg Resting BP Standin/92 mmHg Max BP: 162/94 mmHg Recovery BP: 128/78 mmHg BP response to stress: Normal blood pressure response to stress. ECG Resting ECG: Sinus Rhythm Ectopy: None Stress ECG: Sinus Tachycardia ST Change: No significant ST segment changes noted Arrhythmia: None Recovery ECG: Sinus Rhythm Recovery ST Change: Horizontal ST depression Lead(s): inferior leads Recovery ST Deviation: 1 mm Recovery Arrhythmia: None Clinical Reason for Termination: Target HR Achieved, mod SOB Stress Symptoms: Mod SOB Exercise duration: 08 min11 sec Highest Stage Reached: Stage 2: 2.5 mph at 12% grade. Exercise capacity: 10.16 METs Angina Score: Non-Limiting Pyle Treadmill Score: 3.5 Rate Pressure Product: [id number] Stress ECG Conclusion 1. Resting electrocardiogram showed poor R wave progression 2. Patient exercised on the Torres protocol and completed a workload of 10.16 METS 3. Normal heart rate and blood pressure response to exercise. The patient achieved 86% of maximal pr edicted heart rate for age 4. There was no electrocardiographic evidence of myocardial ischemia 5. See MPI report Pyle Treadmill Score is 3.5 which is Moderate risk. Stress Test Summary STAGE Time (mins) Speed (mph) Grade (%) HR BP SpO2 SYMPTOMS METS Supine 83 132/76 94 Standing 90 152/82 1 3 1.7 10 113 162/94 95 4.5 2 6 2.5 12 128 Mod SOB 7 1 min recovery 120 150/88 Mod SOB 3 min recovery 100 142/86 94 6 min recovery 94 128/78 All symptoms resolved Patient denied worsening of 3/10 chest ache. Mod SOB resolved prior to patient proceeding to imaging ambulatory in no apparent distress. MPI Conclusion Myocardial perfusion is normal. There is no ischemia or evidence of prior infarction Ejection fraction is 61% with normal wall motion Radiologist Interpretation Radiologist agrees with Signal Tower Director's Interpretation. Radiologist Interpretation by: Isela Lee MD Interpretation Date/Time: 02/11/2024 15:20:16
== END ==
PROVIDERS: PCP Family Medicine; Visit Provider Family Medicine
DX: R07.89 Other chest pain (principal)
CPT/HCPCS: 78452; 93016; 93018; 93017

== ENCOUNTER → 2024-02-22 00:56 | Outpatient (CLI) | payer MEDICARE, SELFPAY ==
--- NOTE | 2024-02-22 06:45 | DI.US_ITS ---
Exam(s) US ABDOMEN LIMITED EXAM: US ABDOMEN LIMITED CLINICAL HISTORY: gallstones and hemangioma,K80.20 TECHNIQUE: Ultrasound abdomen performed using standard protocol. COMPARISON: US ABD PELVIS TRANSVAG from 11/26/[address] ABDOMEN PELVIS W from 02/08/2024 FINDINGS: PANCREAS: Normal where visualized. LIVER: Normal. Hepatopetal flow in the Portal Vein. The liver measures in 14.5 cm length. No evidence of a hepatic mass. GALLBLADDER:The gallbladder is full of gallstones with a [id number] appearance. No evidence of wall thickening. No pericholecystic fluid identified. BILIARY SYSTEM: Common bile duct measures < 7 mm. No intrahepatic biliary ductal dilation. CHAHAL'S SIGN: Negative. RIGHT KIDNEY: Kidney is normal in size. No evidence of renal calculi. No evidence of hydronephrosis. There is a 1.4 cm simple cyst in the right kidney. This is unchanged from the CT examination. No f ollow-up is recommended. ASCITES: None seen. IMPRESSION: Cholelithiasis. No ultrasound evidence of acute cholecystitis. DATA REPOSITORY:
== END ==
PROVIDERS: PCP Family Medicine; Visit Provider Family Medicine
DX: K80.20 Calculus of gallbladder without cholecystitis without obstruction (principal)
CPT/HCPCS: 76705

== ENCOUNTER → 2024-02-27 12:24 | Outpatient (BNVA) | payer MEDICARE, SELFPAY | PROVIDERS: PCP Family Medicine; Referring Provider Family Medicine; Visit Provider Student in an Organized Health Care Education/Training Program | DX: K41.90 Unilateral femoral hernia, without obstruction or gangrene, not specified as recurrent (principal); K80.20 Calculus of gallbladder without cholecystitis without obstruction | CPT/HCPCS: 99214 ==

== ENCOUNTER 2024-04-23 10:29 | Day surgery (SDC) | payer MEDICARE, SELFPAY ==
[2024-04-23] VITALS (36 sets, daily range): BP systolic 118–159; BP diastolic 26–110; PULSE 70–165; RESP 11–91; TEMP 36.3–36.7; O2SAT 91–100; BMI 19.1
--- NOTE | 2024-04-23 11:27 | W.SURGCON ---
Date of service: 04/23/24 Time of Service: 11:35 Assessment and Plan Assessment and plan (1) Femoral hernia of right side: Status: Acute Assessment and plan: 68-year-old woman with right femoral or inguinal hernia that is symptomatic. For this reason she warrants repair. She has had 2 prior repairs on the left?side. Both of those repairs were anterior. She is concerned she might have a recurrence on that side because of some new discomfort. We had a long and detailed discussion about laparoscopic exploration. If I find there is a hernia defect on the left?side such as another inguinal hernia or possibly a novel/primary femoral hernia, then I will repair that hernia simultaneously. She does clearly understand that I might not find the answer for her left?sided pain and if there is no hernia defect there, I will not proceed with a left-sided recurrent hernia repair. Overall plan: Laparoscopic right inguinal/femoral hernia repair, possible left. History of Present Illness Narrative: Patient has been having some mild left-sided tenderness as well. No bulging. She is worried she might have a recurrent hernia on the left side 2. PFSH All Active Problems Gallstones (Acute) Aneurysm artery, iliac (Acute) Femoral hernia of right side (Acute) Inflammation and stiffening of spine (Acute) Arthralgia (Acute) Pelvic pain in female (Acute) Shingles (Acute) Exhaustion (Acute) Suprapubic pain (Acute) COVID-19 (Acute) 02/01/22 Vaccinated with one booster Laceration of finger of right hand with tendon involvement (Acute 03/17/21) Lymphadenopathy (Acute) Lumbar disc prolapse with compression radiculopathy (Chronic 08/27/12) spinal stenosis r leg radiculopathy Hypothyroidism (Chronic 04/08/13) Thyroid orbitopathy Fibromyalgia syndrome (Chronic 01/22/14) elevated MATTHEW 06/12/14;DNA DOUBLE STRANDED Ab, IgG; 177 Cardiolipin IgM; Indeterminate 12.5 Essential hypertension (Chronic 06/11/13) Chronic obstructive lung disease (Chronic) Cervical spondylosis (Chronic 08/27/12) Annual physical exam (Acute 06/03/15) Alcohol intake above recommended sensible limits (Acute 04/14/14) Abnormal WBC count (Chronic 11/12/14) Medical History Thoracic back pain Closed fracture of humerus (11/04/07) Discoid lupus erythematosus (11/04/07) Hand joint pain (11/04/07) History of bone density study Smoker (11/04/07) H/O bone density study good 08/27/02 Discoid lupus erythematosus Suspected 11/04/07 Closed fracture of humerus right 11/04/07 Hand joint pain 11/04/07 Smoker Therapeutic procedure nerve root block and steroid injection--right S-1 04/07/15 Thrombocytosis Weight loss, abnormal (04/23/17) Unilateral inguinal hernia, without obstruction or gangrene, not specified as recurrent (10/01/15) Graves disease (06/12/13) 1981 WITH ABLATION; NOW ON REPLACEMENT Left inguinal hernia Hypothyroidism s/p ablation for grave's disease Fibromyalgia COPD (chronic obstructive pulmonary disease) Essential hypertension Surgical History (Updated 04/23/24 @ 11:23 by Cami Alba) Hx of lumbosacral spine surgery History of prior ablation treatment History of removal of cyst Status post laparoscopic hysterectomy Status post unilateral inguinal hernia repair (11/24/15) H/O removal of cyst wrist S/P laparoscopic hysterectomy for heavy bleeding; both ovaries remain H/O prior ablation treatment Graves Disease 08/27/81 S/P unilateral inguinal hernia repair left 11/24/15 Hysterectomy, Laproscopic (~1981) for heavy bleeding; still has both ovaries Repair of inguinal hernia (06/21/16) 06/21/16 removal of old mesh and repair 11/24/15; LEFT CYST REMOVAL (~1977) WRIST BONE DENSITY TEST (~2002) GOOD Recurrent major depression in partial remission (~1981) FOR GRAVES DISEASE Family History Mother , RESPIRATORY at age 78. Essential hypertension Mental disorder dementia Asthma Father , ETOH at age 56. Alcohol abuse Sister Essential hypertension Brother Asthma Maternal Grandfather , age 68 Essential hypertension Paternal Grandfather Diabetes Maternal Grandmother , age 68 Essential hypertension Paternal Grandmother No problems noted. Son No problems noted. Son No problems noted. Social History (Updated 01/07/24 @ 16:36 by Emilie Bonds) Smoking/Tobacco Use Status: Former Tobacco Use tobacco type: cigarettes Quit Date: 09/30/93 Tobacco: How many years used: 23 Second Hand Exposure: Yes Smoking risk assessment performed?: Yes Alcohol Intake: current Alcohol Intake frequency: a few times a week Alcohol type: beer Drug use: Daily Substance use type: marijuana Household members: spouse and family Housing: house Do you need help understanding health information?: Never Pets and animals: Yes Pets and animals: dog(s) Sexually active: No Do you think of yourself as: straight/heterosexual Current gender identity: female What is your relationship status?: How often do you talk on the phone with friends or family?: three or more times per week How often do you get together with friends or relatives?: three or more times per week How often do you attend adventism or zoroastrianism services?: 4 or more times per year Do you belong to any clubs or organized social groups?: no Panel score (0-1 are the most socially isolated patients): 2 Francesca/Hoahaoism: Religion Special francesca needs: No Seatbelt use: always Drive intox 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 vibratory pile driver: No Do you feel safe at home: Yes Do you feel safe in your relationship?: Yes Victim of physical abuse: No Victim of emotional abuse: No Victim of sexual abuse: No Exam Narrative Exam Narrative: General: Nontoxic, comfortable and interactive Neuro: Alert and oriented x 3 Psych: Good mood and affect, good insight and understand Chest: Nonlabored breathing, no wheezing no shortness of breath Heart: Regular Abdomen: Soft, nondistended nontender. No significant pain on bilateral groin palpation.
--- NOTE | 2024-04-23 11:41 | W.ANESPRE ---
General Info Date of Service Date Performed: 04/23/24 Height: 5 ft 1 in Weight: 45.813 kg Body Mass Index (BMI): 19.1 Surgical Procedure: Operation Date: 04/23/24 11:55 Proposed Procedure Side Surgeon p Hernia Inguinal Laparoscopic Right Benjamin Patel MD Meds Allergies and Home Medications Allergies Allergy/AdvReac Type Severity Reaction Status Date / Time meloxicam (From Mobic) Allergy Intermediate NAVARRO's, Hives Verified 04/23/24 11:18 diazepam (From Valium) Allergy Mild Skin Rash Verified 04/23/24 11:18 nortriptyline AdvReac Intermediate Irritability Verified 04/23/24 11:18 and dizziness tramadol AdvReac Mild Lightheaded Verified 04/23/24 11:18 ness doxycycline AdvReac Tingling Verified 04/23/24 11:18 in hands gabapentin AdvReac Dizziness Verified 04/23/24 11:18 Home Medication ?Medication ?Instructions ?Recorded Chaga Tea 1 ea PO QID 10/21/15 naproxen 250 mg tablet 250 - 500 mg (1 - 2 x 250 mg) PO 03/17/21 BID PRN Moderate pain or swelling #20 tabs arnica 1 ml topical DAILY 09/11/22 varicella-zoster glycoE [id number] 0.5 ml IM ONCE #1 ea 10/23/22 adj(PF) 50 mcg/0.5 mL IM susp, kit (Shingrix (PF)) Symbicort 160 mcg-4.5 2 puff inhalation BID #10.2 grams 05/22/23 mcg/actuation HFA aerosol inhaler (budesonide-formoterol) hydrochlorothiazide 25 mg tablet 25 mg PO DAILY hypertension #90 05/22/23 tabs potassium chloride 20 mEq 20 meq PO DAILY #90 tabs 05/22/23 tablet,extended release albuterol sulfate 90 mcg/actuation 2 puff inhalation Q4H PRN ##1 10/05/23 aerosol inhaler (ProAir HFA) ibuprofen 600 mg tablet 600 mg PO Q6H PRN #180 tab-caps 10/05/23 aspirin 325 mg capsule 325 mg PO ONCE 01/25/24 simethicone 125 mg capsule (Gas-X 125 mg PO AC & HS PRN 01/31/24 Extra Strength) levothyroxine 75 mcg tablet 75 mcg PO DAILY #90 tabs 02/14/24 amlodipine 10 mg tablet 10 mg PO HS 04/21/24 Current Visit Medications: Current Medications Generic Name Dose Route Start Last Admin Trade Name Elvin PRN Reason Stop Dose Admin Heparin Sodium (Porcine) 5,000 units 04/23/24 06:00 Heparin 5,000 Units/Ml Vial SC 04/23/24 23:59 PREOP [facility] Ringer's Solution 1,000 mls @ 80 mls/hr 04/23/24 06:00 IV 04/23/24 23:59 INFUSION [facility] IV Miscellaneous Supplies 1 each 04/23/24 06:00 Iv Access IV 04/23/24 23:59 DIRECTED COOPER Sodium Chloride 0 ml 04/23/24 06:00 Normal Saline Flush 10 Ml Syr IV 04/23/24 23:59 PRN PRN Sodium Chloride 0 ml 04/23/24 06:00 Normal Saline 10 Ml Vial IJ 04/23/24 23:59 DIRECTED PRN Sterile Water 0 ml 04/23/24 06:00 Water,Injection,Sterile 10 Ml Vial IJ 04/23/24 23:59 DIRECTED PRN PFSH Active Problems Active Problems: Problem Status Onset Code Gallstones Acute K80.20 Aneurysm artery, iliac Acute I72.3 Femoral hernia of right side Acute K41.90 Inflammation and stiffening of spine Acute M46.90 Arthralgia Acute M25.50 Pelvic pain in female Acute R10.2 Shingles Acute B02.9 Exhaustion Acute R53.83 Suprapubic pain Acute R10.2 COVID-19 Acute U07.1 Laceration of finger of right hand with tendon involvement Acute 03/17/21 S61.219A Lymphadenopathy Acute R59.1 Lumbar disc prolapse with compression radiculopathy Chronic 08/27/12 M51.16 Hypothyroidism Chronic 04/08/13 E03.9 Fibromyalgia syndrome Chronic 01/22/14 M79.7 Essential hypertension Chronic 06/11/13 I10 Chronic obstructive lung disease Chronic J44.9 Cervical spondylosis Chronic 08/27/12 M47.812 Annual physical exam Acute 06/03/15 Z00.00 Alcohol intake above recommended sensible limits Acute 04/14/14 Z72.89 Abnormal WBC count Chronic 11/12/14 D72.9 Medical History Medical History Thoracic back pain Closed fracture of humerus (11/04/07) Discoid lupus erythematosus (11/04/07) Hand joint pain (11/04/07) History of bone density study Smoker (11/04/07) H/O bone density study good 08/27/02 Discoid lupus erythematosus Suspected 11/04/07 Closed fracture of humerus right 11/04/07 Hand joint pain 11/04/07 Smoker Therapeutic procedure nerve root block and steroid injection--right S-1 04/07/15 Thrombocytosis Weight loss, abnormal (04/23/17) Unilateral inguinal hernia, without obstruction or gangrene, not specified as recurrent (10/01/15) Graves disease (06/12/13) 1981 WITH ABLATION; NOW ON REPLACEMENT Left inguinal hernia Hypothyroidism s/p ablation for grave's disease Fibromyalgia COPD (chronic obstructive pulmonary disease) Essential hypertension Surgical History Surgical History (Updated 04/23/24 @ 11:23 by Cami Alba) Hx of lumbosacral spine surgery History of prior ablation treatment History of removal of cyst Status post laparoscopic hysterectomy Status post unilateral inguinal hernia repair (11/24/15) H/O removal of cyst wrist S/P laparoscopic hysterectomy for heavy bleeding; both ovaries remain H/O prior ablation treatment Graves Disease 08/27/81 S/P unilateral inguinal hernia repair left 11/24/15 Hysterectomy, Laproscopic (~1981) for heavy bleeding; still has both ovaries Repair of inguinal hernia (06/21/16) 06/21/16 removal of old mesh and repair 11/24/15; LEFT CYST REMOVAL (~1977) WRIST BONE DENSITY TEST (~2002) GOOD Recurrent major depression in partial remission (~1981) FOR GRAVES DISEASE Tobacco Smoking/Tobacco Use Status: Former Tobacco Use Passive smoking exposure: Yes Second hand exposure: Yes Alcohol Alcohol Intake: current Alcohol intake frequency: a few times a week Alcohol type: beer Substance Use Substance use: Daily Substance use type: marijuana Vital Signs and Lab Results Lab Results Blood Type / Crossmatch: No Data to Display Complete Blood Count: No Data to Display Complete Metabolic Panel: No Data to Display Liver Function Panel: No Data to Display Coagulation Panel: No Data to Display Cardiac Panel: No Data to Display Arterial Blood Gas: No Data to Display Venous Blood Gas: No Data to Display Pancreas Panel: No Data to Display Thyroid Panel: No Data to Display Infectious Disease: No Data to Display Blood Cultures: No Data to Display Toxicology Panel: No Data to Display Anesthesia Assessment and Plan Anesthesia History Personal History: PONV and Delayed Emergence Family History: No Family History of Anesthesia Complications Exercise Tolerance Exercise Tolerance: Metabolic Equivalents>4 Pertinent Negatives Pertinent Negatives: No Symptoms of GERD Cardiac & Pulmonary Exam Cardiac Exam: Normal S1/S2 Heart Sounds Pulmonary Exam: Clear Bilateral Breath Sounds (Former smoker, COPD) Implantable Cardiac Device Does patient have a Pacemaker or an ICD?: No Airway Exam Known Difficult Airway: No Mallampati Class: 2 Mouth Opening: Normal (> 3cm) Thyromental Distance: Greater than 3 cm Neck Range of Motion: Full ROM Neck Circumference: Normal Teeth Condition: Normal Dentition ASA Classification ASA Score: ASA 3 Emergency Case?: No NPO Status NPO Status: NPO Clears >2 hours, Solids >8 hours Anesthesia Plan Resuscitation Status: Full Code Anesthesia Technique: General Anesthesia Airway Planned: Endotracheal Tube Monitors Used: Standard Monitors
[2024-04-23] MEDS: Lactated Ringers 1,000 ML 80 ML IV ×2 (11:51→14:11)
--- NOTE | 2024-04-23 12:03 | NUR.NOTE ---
1150: Richard Almanza CRNA requested heparin SQ be sent to OR for him to administer after blocks in OR.Nursing Note:
--- NOTE | 2024-04-23 12:51 | W.ANESNERVE ---
Nerve Block Single Injection Procedure Date and Time Date Performed: 04/23/24 Procedure Start: 12:24 Location Where Procedure Performed Procedure Location: Operating Room Procedure Stop: 12:35 Reason Performed: Postoperative Analgesia Requesting Provider: Benjamin Patel Timeout Performed Timeout Performed: Yes Monitoring Used ECG, Blood Pressure, SpO2 and ETCO2 Sterility Sterility: Hand Hygiene, Surgical Cap, Surgical Mask, Sterile Gloves, Sterile Drape/Sheet, Eye Protection and Chlorhexidine Sedation Given During Procedure Sedation Given (Indicate Dose Given): No Sedation given Patient Mental Status Patient Mental Status: Performed under general anesthesia Nerve Block 1st Nerve Block: Laterality: Right Block Type: TAP Unilateral (Right) Ultrasound Image Saved?: Yes Needle / Catheter Used: 100mm SonoPlex II Local Anesthetic Bolus (Indicate Dose Given): None, Bupivacaine 0.25% Dose:: 0.25%/10cc (25mg) and Exparel Dose:: 1.33%/5cc (66.5mg) Additives (Indicate Dose Given): None Ultrasound: Sterile probe cover and gel used Nerve Stimulator: Not Used Paresthesia: None Procedure Tolerated: No Complications and Patient tolerated well Procedure Outcome: Successful Performed By: Yahir Guerra 2nd Nerve Block: Laterality: Left Block Type: TAP Unilateral (Left) Ultrasound Image Saved?: Yes Needle / Catheter Used: 100mm SonoPlex II Local Anesthetic Bolus (Indicate Dose Given): Bupivacaine 0.25% Dose:: 0.25%/10cc (25mg) and Exparel Dose:: 1.33%/5cc (66.5mg) Additives (Indicate Dose Given): None Ultrasound: Sterile probe cover and gel used Nerve Stimulator: Not Used Paresthesia: None Procedure Tolerated: No Complications and Patient tolerated well Procedure Outcome: Successful Performed By: Yahir Guerra
[2024-04-23] MEDS: Bupivacaine 0.25% Pres-Free 30 ML VIAL (13:20)
[2024-04-23] MEDS: Heparin 5,000 UNITS/ML VIAL 5000 UNITS SC (13:23)
[2024-04-23] MEDS: fentaNYL 100 MCG/2 ML VIAL IVP ×2 (14:20→14:27)
[2024-04-23] MEDS: HYDROmorphone 2 MG/ML SYR IVP (14:51)
[2024-04-23] MEDS: Normal Saline 10 ML VIAL IJ (14:51)
[2024-04-23] MEDS: ACETAMINOPHEN 1,000 MG/100 ML BTL 400 MG IVPB (15:11)
--- NOTE | 2024-04-23 15:59 | ROE_ITS ---
Date of service: 04/23/24 Time of Service: 14:00 Operative Note Operative Note Refer to Anesthesia Record Procedure Description: PROCEDURES PERFORMED: 1. Laparoscopic repair of primary incarcerated RIGHT inguinal hernia 2. Laparoscopic repair of recurrent LEFT reducible inguinal hernia 3. Laparoscopic repair of primary incarcerated LEFT femoral hernia Preoperative Diagnosis: Reducible primary right inguinal hernia, possible recurrent left inguinal hernia Postoperative Diagnosis: Incarcerated RIGHT DIRECT inguinal hernia, reducible recurrent LEFT DIRECT inguinal hernia, incarcerated LEFT FEMORAL hernia. Surgeon: Glendy Patel Assist: None Anesthesia: General Anesthesiologist: Richard Indication: Tender but reducible RIGHT inguinal hernia. Two prior left anterior repairs but having left discomfort occasionally. Findings: Omentum incarcerated in RIGHT direct space. 2 obvious defects were found on the LEFT side, no incarcerated contents in a direct space consistent with recurrent hernia but incarcerated preperitoneal fat in the left femoral space. The bilateral myopectineal orifice spaces (indirect, direct and femoral spaces on both sides) were repaired with posterior approach and mesh. Complications: None Estimated Blood Loss: (5cc) Scant Specimens removed: None Grafts or implants: 3D laura large mesh bilateral Procedure in detail: Written consent was obtained from the patient who was in agreement with the risks, the benefits and the indications for the procedure. The patient was taken to the operating suite and laid supine on the operating table with both arms tucked. IV antibiotics were not indicated and DVT prophylaxis had been given. Venodynes were in place. General anesthesia was administered which was tolerated very well. Anesthesia performed an ultrasound?guided block. See their procedure note for details. We then prepped and draped the abdomen in sterile fashion. A timeout was performed. When we were all in agreement we began the procedure. Additional local anesthetic was injected at each trocar site. Within the umbilicus a small stab incision was made and a 5 mm Optiview trocar was used to enter into the abdomen under direct visualization. The liver was inspected and did not appear cirrhotic. 2 other 5 mm port were placed under direct visualization and the umbilical port was upsized to a 12 mm to facilitate passing the mesh and sutures. The patient was placed in Trendelenburg and we had good visualization of the intra-abdominal contents, pelvis and the bilateral pelvic sidewalls. Hernia defects are visible on both sides. Incarcerated contents in the right direct space. The left has 2 defects consistent with recurrent hernia disease. The lower defect is clearly tensely?incarcerating pre-peritoneal fat. On the right, I was able to laparoscopically reduce the incarcerated contents relatively easily and without undue stress. Hemostasis was excellent. In standard/usual fashion I created peritoneal flaps. A combination of blunt and sharp dissection was performed using the LigaSure. I was able to reduce the hernia sac out of the direct space on the right. I developed the space all the way medial to beyond the pubic tubercle midline. Alfredo's ligament was clearly exposed as well as all 3 potential defects of the myopectineal orifice. The round ligament was divided at the level of the internal ring. I then turned my attention to the left side and exposed it in similar fashion. I had to laparoscopically reduce the preperitoneal fat out of the femoral space which was quite tight. I also divided the round ligament on the side allowing space for the mesh to be placed. Hemostasis was excellent. Two 3D laura mesh were introduced in usual fashion and laid perfectly within the spaces I had created. The indirect, direct as well as the femoral spaces were all completely covered with significant and adequate overlay. I sutured a corner of each mesh to Alfredo's ligament with Vicryl and in the upper outer quadrant to the fascia with Vicryl to the mesh would not rotate or migrate. This was done on both sides. Next I closed both peritoneal flaps with the V-loc. Hemostasis was excellent. I closed the umbilical 12mm defect with 0 Vicryl. The 5 mm ports were removed. I closed the skin with Monocryl and put Dermabond on top. The sponge, instrument and sharps count was correct x3 at the end of the proce dure. The patient tolerated the procedure well and was taken to the PACU in hemodynamically stable condition.
--- NOTE | 2024-04-23 16:02 | W.PM.DSUDISC ---
Date of service: 04/23/24 Time of Service: 16:02 Discharge Plan Disposition Patient Disposition: Home Condition: Good Discharge Details Attending Provider: Benjamin Patel Primary Care Provider: Ana Campos Home Meds and New Rx's Prescriptions: No Action Shingrix (PF) 50 mcg/0.5 mL suspension for reconstitution 0.5 ml IM ONCE Qty: 1 1RF Rx Instructions: as a single dose. Repeat in 2 months simethicone [Gas-X Extra Strength] 125 mg capsule 125 mg PO AC & HS PRN chaga tea 1 ea PO QID hydrochlorothiazide 25 mg tablet 25 mg PO DAILY Qty: 90 3RF potassium chloride 20 mEq tablet extended release 20 meq PO DAILY Qty: 90 5RF budesonide-formoterol [Symbicort] 160-4.5 mcg/actuation HFA aerosol inhaler 2 puff inhalation BID Qty: 10.2 12RF ibuprofen 600 mg tablet 600 mg PO Q6H PRN Qty: 180 0RF albuterol sulfate [ProAir HFA] 90 mcg/actuation HFA aerosol inhaler 2 puff Inhalation Q4H PRN Qty: 1 12RF levothyroxine 75 mcg tablet 75 mcg PO DAILY Qty: 90 1RF naproxen 250 mg tablet 250 - 500 mg PO BID PRN (Reason: Moderate pain or swelling) Qty: 20 0RF aspirin 325 mg capsule 325 mg PO ONCE arnica Tincture 1 ml topical DAILY amlodipine 10 mg tablet 10 mg PO HS Discharge Instructions Additional Instructions: FINDINGS: The right hernia was repaired as we had discussed. Incidentally enough, you did have a recurrent left?sided hernia. This was also fixed at the same time. INSTRUCTIONS: Incisions: Keep clean and dry but they do not need to be covered. It is okay to shower but no tub bathing for 1 week. You can peel the glue off after 1 week. Activity: As tolerated. Light duty without any heavy lifting/pulling or pushing for 6-8 weeks. Diet: Regular diet as tolerated. Medications: Resume all of your usual/regular home medications. Follow-up: If you are having any issues or concerns call the surgery office immediately. If you want to have a routine follow-up that is perfectly fine and you can call and schedule an. If everything is otherwise going well, you do not need to follow-up. Pain control: Take Tylenol, 1000 mg, every 6 hours on a schedule for the next 3 days. You can use ibuprofen in addition to Tylenol and use the narcotic medication only as necessary for pain preventing you from sleeping. Overall: Symptoms should not be worsening. If you have any difficulty breathing or you have return of symptoms of brought you to the hospital or your pain is otherwise worsening each day and you should call the doctor's office or come into the hospital to be checked out. Activity:: Activity as Tolerated Diet:: As Tolerated Discharge Orders Discharge Orders: Discharge Order (Routine); Ordered 04/23/24 Ordered By: Benjamin Patel DS: Diagnosis Discharge Diagnosis (1) Femoral hernia of right side: Status: Acute
--- NOTE | 2024-04-23 16:55 | W.ANESPOSTOP ---
Postoperative Evaluation Date, Time and Location Date Performed: 04/23/24 Time Performed: 16:56 Patient Location: Day Surgery Unit Vital Signs Most Recent Imported Vital Signs: Most Recent Vital Signs Temp Pulse Resp BP Pulse Ox 36.5 C 95 H 15 138/74 95 04/23/24 15:41 04/23/24 15:41 04/23/24 15:41 04/23/24 15:41 04/23/24 15:41 Pain Score Most Recent Pain Score: Most Recent Pain Score Pain Level 6 04/23/24 15:41 Assessment Mental Status: Awake (Alert & Oriented to Patient Baseline) Airway and Respiratory Function: Patent airway with normal (patient baseline) respiratory exam Cardiovascular Function: Hemodynamically Stable Hydration Status: Adequately Hydrated Nausea & Vomiting: No Nausea or Vomiting Pain: Pain is tolerable per patient Peripheral Nerve Block: Regional nerve block not resolved at time of post operative discharge
== END 2024-04-23 17:00 | disposition home or self-care (01) ==
PROVIDERS: PCP Family Medicine; Visit Provider Student in an Organized Health Care Education/Training Program
PROC: (CPT 49650; principal; 2024-04-23 11:45)
DX: K41.90 Unilateral femoral hernia, without obstruction or gangrene, not specified as recurrent (principal); K40.30 Unilateral inguinal hernia, with obstruction, without gangrene, not specified as recurrent; K40.91 Unilateral inguinal hernia, without obstruction or gangrene, recurrent
CPT/HCPCS: 49651; 49650; 49553; 00123; 76942; C1781; C9290; J0131; J0665; J1100; J1170; J1644; J1885; J2001; J2405; J2704; J3010

== ENCOUNTER 2024-05-01 09:48 | Outpatient (REF) | payer MEDICARE, SELFPAY | END 2024-05-01 09:49 | disposition home or self-care (01) | LOC: LBN 09:48 | PROVIDERS: PCP Family Medicine; Visit Provider Nurse Practitioner Family | DX: L98.9 Disorder of the skin and subcutaneous tissue, unspecified (principal); T81.49XA Infection following a procedure, other surgical site, initial encounter | CPT/HCPCS: 87070; 87205 ==

== ENCOUNTER → 2024-05-05 08:48 | Outpatient (BNVA) | payer MEDICARE, SELFPAY | PROVIDERS: PCP Family Medicine; Referring Provider Family Medicine; Visit Provider Student in an Organized Health Care Education/Training Program | DX: Z48.815 Encounter for surgical aftercare following surgery on the digestive system (principal); K41.90 Unilateral femoral hernia, without obstruction or gangrene, not specified as recurrent ==

== ENCOUNTER → 2024-05-21 10:20 | Outpatient (BNVA) | payer MEDICARE, SELFPAY | PROVIDERS: PCP Family Medicine; Referring Provider Family Medicine; Visit Provider Student in an Organized Health Care Education/Training Program | DX: Z48.817 Encounter for surgical aftercare following surgery on the skin and subcutaneous tissue (principal) ==

== ENCOUNTER 2024-06-15 11:11 | Emergency (ER) | payer MEDICARE, SELFPAY ==
[2024-06-15] VITALS (40 sets, daily range): BP systolic 119–169; BP diastolic 67–90; PULSE 78–102; RESP 12–23; TEMP 37.1; O2SAT 94–98
--- NOTE | 2024-06-15 11:00 | RT.EKG_ITS ---
APPROVED REPORT Exam: Resting ECG Reason for Exam: Chest Pain Patient Location: E HR:99 bpm ECG Measurements Heart Rate 99 AXIS IN 125 P 81 QRSd 86 QRS 20 QT 365 T 26 QTc 468 Conclusion Sinus rhythm, rate 99 No interval abnormalities No STEMI
[2024-06-15] MEDS: Aspirin 81 MG CHEW 324 MG CH (11:31)
[2024-06-15 11:38] LABS: Lactate 0.7 mmol/L (0.6-1.4)
--- NOTE | 2024-06-15 11:38 | ED.GENADUL_ITS ---
Discharge Plan Disposition Patient Disposition: Home Condition: Stable Discharge Details Clinical Impression: Pneumonia Primary Care Provider: Ana Campos ED Provider: Gordon Sanders Home Meds and New Rx's Prescriptions: New amoxicillin-pot clavulanate 875-125 mg tablet 1 tab PO BID 5 Days Qty: 10 0RF azithromycin 250 mg tablet See Rx Instructions .ROUTE .COMPLEX Qty: 6 0RF Rx Instructions: For 250 mg dose pack: take 500 mg today (day 1), then 250 mg for 4 days (days 2-5) Continued simethicone [Gas-X Extra Strength] 125 mg capsule 125 mg PO AC & HS PRN chaga tea 1 ea PO QID budesonide-formoterol [Symbicort] 160-4.5 mcg/actuation HFA aerosol inhaler 2 puff inhalation BID Qty: 10.2 12RF albuterol sulfate [ProAir HFA] 90 mcg/actuation HFA aerosol inhaler 2 puff Inhalation Q4H PRN Qty: 1 12RF levothyroxine 75 mcg tablet 75 mcg PO DAILY Qty: 90 1RF ibuprofen 600 mg tablet 600 mg PO Q6H PRN Qty: 180 0RF hydrochlorothiazide 25 mg tablet 25 mg PO DAILY Qty: 90 3RF aspirin 325 mg capsule 325 mg PO ONCE arnica Tincture 1 ml topical DAILY potassium chloride 20 mEq tablet extended release 20 meq PO .qod No Action amlodipine 10 mg tablet 10 mg PO HS Qty: 90 4RF Discharge Instructions Instructions: Azithromycin (Systemic), Amoxicillin and Clavulanate, Pneumonia, Adult ED Additional Instructions: You were seen in the emergency department for your left-sided chest pain, you have a left-sided infiltrate suspicious for pneumonia as well as elevated white blood cells on your blood work today, your cardiac workup is negative, there is no blood clot in your lungs. I am treating you for pneumonia with dual antibiotic therapy, please use therapeutic dosing of Tylenol (acetamenophen) & Advil (ibuprofen) in an alternating fashion as follows: Take 1000mg of Tylenol every 6 hours without missing doses- that is 4 times per day. Buckner in between the Tylenol dosings, take 400-600mg of Advil also on a 6 hour schedule, that is also 4 times per day. The daily maximum dosing of Tylenol is 4000mg, and the daily maximum dosing of Advil is 2400mg. This is safe to do for weeks. Please note that some common cold medications & prescription pain medications may contain acetamenophen and you need to read OTC drug labels and factor that in to maximum daily dosings. Apply a Lidoderm patch to the area of pain, you may also try applying some Voltaren gel which is an [id number] topical anti-inflammatory.. You need to follow-up with your primary care provider about incidental findings on your CT scan including a 7 mm lung nodule that needs surveillance by CT scans, the radiologist recommended a repeat CT scan in 1 year. Please return to the emergency department for severe increase in chest pain, respiratory stress, high fevers, inability to tolerate p.o. intake or any other emergent concerns Referrals: Ana Campos MD, [place] [Primary Care Provider] - Discharge Data Discharge Date/Time-TO BE ENTERED AT DEPARTURE: 06/15/24 15:41 HPI General Date/Time Provider Initiated Documentation: 06/15/24 11:22 . HPI Narrative: 68 year-old female presents to ED today by POV/ambulating with a chief complaint of L sided chest pain since 2300 last night, shortness of breath, feels her chest is heavy, has not gone away all night. Quality described as L sided chest heaviness, shortness of breath, no radiation to dizziness, sweating, hemoptysis, recent URI, nausea/vomiting, abdominal pain, black/bloody stools. Severity is described as severe- 8/10. Palliating factors include tried aspirin last night, tried gas-X and ibuprofen without relief. Provoking factors include nothing specific. Events leading up to the incident/Associated Symptoms: Patient is a non-smoker, does smoke marijuana, denies cardiac history. Patient not anticoagulated. Related Data Home Medications ?Medication ?Instructions ?Recorded ?Confirmed Chaga Tea 1 ea PO QID 10/21/15 06/16/24 arnica 1 ml topical DAILY 09/11/22 06/16/24 Symbicort 160 mcg-4.5 2 puff inhalation BID #10.2 grams 05/22/23 06/16/24 mcg/actuation HFA aerosol inhaler (budesonide-formoterol) albuterol sulfate 90 mcg/actuation 2 puff inhalation Q4H PRN ##1 10/05/23 06/16/24 aerosol inhaler (ProAir HFA) aspirin 325 mg capsule 325 mg PO ONCE 01/25/24 06/16/24 simethicone 125 mg capsule (Gas-X 125 mg PO AC & HS PRN 01/31/24 06/16/24 Extra Strength) levothyroxine 75 mcg tablet 75 mcg PO DAILY #90 tabs 02/14/24 06/16/24 hydrochlorothiazide 25 mg tablet 25 mg PO DAILY hypertension #90 05/13/24 06/16/24 tabs ibuprofen 600 mg tablet 600 mg PO Q6H PRN #180 tab-caps 05/13/24 06/16/24 amlodipine 10 mg tablet 10 mg PO HS #90 tab-caps 06/15/24 06/16/24 amoxicillin 875 mg-potassium 1 tab PO BID 5 days #10 tabs 06/15/24 06/16/24 clavulanate 125 mg tablet azithromycin 250 mg tablet See Rx Instructions PO .COMPLEX #6 06/15/24 06/16/24 tabs potassium chloride 20 mEq 20 meq PO .qod 06/15/24 06/16/24 tablet,extended release Previous Rx's ?Medication ?Instructions ?Recorded Symbicort 160 mcg-4.5 2 puff inhalation BID #10.2 grams 05/22/23 mcg/actuation HFA aerosol inhaler (budesonide-formoterol) albuterol sulfate 90 mcg/actuation 2 puff inhalation Q4H PRN ##1 10/05/23 aerosol inhaler (ProAir HFA) levothyroxine 75 mcg tablet 75 mcg PO DAILY #90 tabs 02/14/24 hydrochlorothiazide 25 mg tablet 25 mg PO DAILY hypertension #90 05/13/24 tabs ibuprofen 600 mg tablet 600 mg PO Q6H PRN #180 tab-caps 05/13/24 amlodipine 10 mg tablet 10 mg PO HS #90 tab-caps 06/15/24 amoxicillin 875 mg-potassium 1 tab PO BID 5 days #10 tabs 06/15/24 clavulanate 125 mg tablet azithromycin 250 mg tablet See Rx Instructions PO .COMPLEX #6 06/15/24 tabs Allergies Allergy/AdvReac Type Severity Reaction Status Date / Time meloxicam (From Mobic) Allergy Intermediate NAVARRO's, Hives Verified 06/15/24 11:23 diazepam (From Valium) Allergy Mild Skin Rash Verified 06/15/24 11:23 nortriptyline AdvReac Intermediate Irritability Verified 06/15/24 11:23 and dizziness tramadol AdvReac Mild Lightheaded Verified 06/15/24 11:23 ness doxycycline AdvReac Tingling Verified 06/15/24 11:23 in hands gabapentin AdvReac Dizziness Verified 06/15/24 11:23 General Stated Complaint: Chest Pain CLARIBEL: 3 Review of Systems All systems reviewed & are unremarkable except as noted in HPI and below Exam Narrative Exam Narrative: GENERAL APPEARANCE: Well-nourished, non-toxic, awake and alert, atraumatic, no acute distress. SKIN: Warm, pink, dry, intact, without rashes/lesions/ulcerations. HEAD: Normocephalic, atraumatic, normal hair distribution for gender/age. EYES: Normal conjunctiva, no exudates on lids/lashes. ENT: Nares patent, no circumoral cyanosis, no facial swelling NECK: Supple, trachea midline, painless cervical ROM. LUNGS/CHEST: Lungs CTA bilaterally-no rhonchi/rales/wheezes diffusely, no focally absent or diminished lung sounds, non-labored respirations, normal A/P diameter, symmetrical expansion, no chest wall deformity, left-sided chest tenderness without crepitus HEART (CV/PV): Regular rate and rhythm without murmur, no peripheral edema, no JVD. ABDOMEN: Soft, non-distended, no guarding, epigastric tenderness, negative Acevedo's sign. MSK: Normal ROM, no swelling/deformity to bilateral UEs or LEs, moving all extremities without weakness, no cyanosis, spine midline without tenderness, normal curvature. NEURO: Mental Status AAOx4 - alert to person, place, time, events No facial droop, no forehead involvement. Motor: No focal weakness - strength 5/5 in bilateral UEs and LEs, proximal and distal, symmetric. Sensory: sensation intact to light touch globally. Gait normal: patient ambulated without ataxia into ED room. PSYCH: euthymic, cooperative, pleasant, appropriate speech Course Vital Signs Vital signs: Vital Signs Temperature 37.1 C 06/15/24 11:16 Pulse 102 H 06/15/24 11:16 Respiratory Rate 19 06/15/24 11:16 Blood Pressure 169/90 H 06/15/24 11:16 Pulse Oximetry 98 06/15/24 11:16 Temperature 37.1 C 06/15/24 11:16 Temperature Source Temporal Artery Scan 06/15/24 11:16 Pulse 93 H 06/15/24 11:31 Pulse 96 H 06/15/24 11:31 Respiratory Rate 21 06/15/24 11:31 Respiratory Effort Short of Breath 06/15/24 11:24 Respiratory Depth Normal 06/15/24 11:24 Respiratory Pattern Normal 06/15/24 11:24 Blood Pressure 158/76 H 06/15/24 11:31 Blood Pressure Mean 102 06/15/24 11:31 Blood Pressure Position Sitting 06/15/24 11:16 Pulse Oximetry 96 06/15/24 11:31 Oxygen Delivery Method Room Air 06/15/24 11:16 Oxygen Flow Rate 0 06/15/24 11:16 Pain Level 8 06/15/24 11:31 Medical Decision Making This dictation utilizes [id number] dictation software and may contain unedited grammatical errors. 68 year-old female presents to ED today by POV/ambulating with a chief complaint of L sided chest pain since 0 last night, shortness of breath, feels her chest is heavy, has not gone away all night. Quality described as L sided chest heaviness, shortness of breath, no radiation to dizziness, sweating, hemoptysis, recent URI, nausea/vomiting, abdominal pain, black/bloody stools. Severity is described as severe- 8/10. Palliating factors include tried aspirin last night, tried gas-X and ibuprofen without relief. Provoking factors include nothing specific. Events leading up to the incident/Associated Symptoms: Patient is a non-smoker, does smoke marijuana, denies cardiac history. Patients' medical history: Discoid lupus erythematosus, history of smoker, Graves' disease, fibromyalgia, COPD, hypertension, gallstones, arthralgia. Family and social history: Denies tobacco use, endorses marijuana use, denies heavy EtOH use. Pertinent exam findings / vital signs include left-sided pleuritic chest pain without crepitus, lungs CTA diffusely, benign cardiac exam, neuro intact, epigastric tenderness. Differential / pathologies of concern include PE, ACS, pneumonia, pneumothorax, costochondritis, anxiety, fibromyalgia. Diagnostic studies of: -CBC, CMP, D-dimer, lactate, serial troponins, BNP, lipase, magnesium, CTA chest, CT abdomen/pelvis, EKG. -CBC shows a mild leukocytosis -CMP shows mild hypokalemia no other actionable abnormality -Magnesium within normal limits -Serial troponins negative -BNP negative -Lipase negative -D-dimer mildly elevated at 601 -CTA of the chest shows no PE, does show bronchial wall thickening with possible bronchitis and a small infiltrate in the right base which could be an pneumonia with the patient's leukocytosis, I did inform the patient of the lung nodule and she will pursue follow-up outpatient -CT of the abdomen pelvis shows no acute pathology -EKG sinus rhythm at 99 bpm with normal axis, mild ST depression V5 without reciprocal elevation, no T wave abnormalities, no diffuse ST depression, normal intervals, good R wave progression Interventions of: -Aspirin 324, 2 doses of as needed 0.3 SL nitro without relief, 40 mg p.o. potassium, ketorolac, Lidoderm patch, IV acetaminophen. ED Course/Assessment/Plan: 68-year-old female presents with left-sided severe pleuritic chest pain, cardiac workup is negative, there is no PE on CTA, has a mild leukocytosis and possible pneumonia with bronchial wall thickening seen on CTA of the chest, treating empirically with dual antibiotic therapy for pneumonia, patient had mild hypokalemia and was provided 40 mill equivalents, with normalized with normal p.o. intake, patient has no difficulty with p.o. intake at this time, her pain did not respond with nitro or aspirin I do not feel this is cardiac, her EKG shows no signs of ischemia and serial troponins are negative with reliable onset, I counseled the patient on following up on her incidental finding of a lung nodule and strict return criteria for any severe increase in chest pain especially with shortness of breath, dizziness, sweating, worsening respiratory distress or fever despite treatment. Findings not consistent with ACS, PE, pneumothorax, sepsis, severe electrolyte abnormality or arrhythmia. Disposition of pneumonia. Patient verbalized understanding of the plan and return to ED criteria and engaged in shared decision making. Medical Records Medical records reviewed: Yes I reviewed the patient's medical records. Imaging Data Radiologic Study: Attestation: I personally reviewed and interpreted this imaging study as follows: Imaging: CT Scan Radiologist's impression: EXAM: CT CHEST PE ABD PELVIS W CLINICAL HISTORY: pleuritic chest pain, epigastric pain. TECHNIQUE: Imaging Protocol: Axial CT angiography was performed with multi-sl ice acquisition and multi-planar and/or 3D reconstructions. CONTRAST MATERIAL: Intravenous: Omnipaque 350contrast volume:100 mL COMPARISON: CT ABD PELVIS WITH CONTRAST from 05/01/2017 CR,XR XR PORTABLE CHEST AP from 01/25/[address] ABDOMEN PELVIS W from 02/08/2024 CT,NM,TMT NM MPI REST STRESS GRP from 02/11/2024 FINDINGS: CHEST: Tracheobronchial tree: There is mild bronchial wall thickening present. No evidence of bronchiectasis. Pulmonary parenchyma: There is an infiltrate seen in the left lung base. No other focal consolidating infiltrates are seen. There is a triangular nodule associated with the right minor fissure anteriorly. No other pulmonary nodules are seen. Mild centrilobular emphysematous changes are seen in the lungs. Pulmonary Arteries: No evidence of filling defect to suggest pulmonary emboli. Mediastinum and Rhea: No dominant adenopathy or fluid collection. The esophagus is unremarkable. There is a hiatal hernia present. Pleura: No effusion or pneumothorax. Heart: The heart is not dilated. Coronary artery calcifications are present. No pericardial effusion. Aorta: Thoracic aorta non-dilated. No evidence of dissection. Atherosclerotic c alcification is present. Bones: Within normal limits for the patient's age. Soft tissues: Unremarkable. ABDOMEN: Liver: Normal density. No measurable mass. Portal, Superior Mesenteric, and Splenic Veins: Unremarkable. Gallbladder and Biliary Tract: Tiny foci are seen in the gallbladder which may represent small stones. There is no biliary ductal dilatation. Pancreas: Normal density, no abnormal calcifications or inflammatory process. Spleen: Normal. There is again seen a calcified rounded lesion in the spleen which is unchanged. Adrenals: Unchanged thickening of the adrenal glands is seen but no discrete mass is present. Kidneys: Normal size, contour and axis. No radiodense stones or obstructive uropathy. There is a simple cyst seen in the right kidney. No follow-up is recommended. Abdominal Aorta: Abdominal portion non-dilated. Atherosclerotic calcification is present. Bowel: There is diverticulosis of the colon without evidence of acute diverticulitis. There is no evidence of bowel wall thickening or obstruction. Appendix is unremarkable. Peritoneal Cavity: No ascites, collection or mesenteric inflammatory response. No free air. Lymph Nodes: Within normal limits. Bones: Within normal limits for the patient's age. Soft Tissues: There is a right inguinal hernia containing fluid. PELVIS: Bladder: Symmetric distention, no gross wall thickening. Reproductive Organs: Status post hysterectomy. Lymph Nodes: Within normal limits. Bones: Within normal limits. IMPRESSION: 1. No evidence pulmonary embolism, thoracic aortic dissection or aneurysm. 2. Mild bronchial wall thickening which can be seen with bronchitis or reactive airways disease. 3. Small infiltrate in the right lung base which may represent atelectasis or pneumonia. 4. No acute abdominal or pelvic process. 5. Incidental findings in the abdomen and pelvis as described above. 6. 7 mm triangular shaped nodule associated with the right minor fissure. Follow-up CT scan in 1 year should be considered. Lab Data Lab results reviewed: Yes I reviewed the patient's lab results. Labs: Laboratory Tests Range/Units 06/15/24 06/15/24 06/15/24 11:31 11:31 11:31 WBC (4.4-10.8) 10^3/uL 17.47 H RBC (3.93-5.22) 10^6/uL 4.39 Hgb (11.2-15.7) g/dL 13.6 Hct (36.0-46.0) % 39.6 MCV (80-95) fL 90 MCH (27.0-33.0) pg 31.0 MCHC (32.0-36.0) % 34.3 RDW (11.7-14.6) % 13.5 Plt Count (130-400) 10^3/uL 508 H MPV (8.0-11.0) fL 8.9 Immature Gran % % 0.5 Neutrophils % % 80.0 Lymphocytes % % 10.7 Monocytes % % 7.6 Eosinophils % % 0.7 Basophils % % 0.5 Nucleated RBC % (0.0-0.3) % 0.0 Absolute Neutrophils (1.2-6.7) 10^3/uL 13.98 H Absolute Lymphocytes (1.2-3.4) 10^3/uL 1.87 Absolute Monocytes (0.1-0.8) 10^3/uL 1.33 H Absolute Eosinophils (0.0-0.7) 10^3/uL 0.12 Absolute Basophils (0.0-0.2) 10^3/uL 0.09 D-Dimer (<500) ng/mlFEU 601 H VBG Lactate (0.6-1.4) mmol/L 0.7 Sodium (136-145) mmol/L 138 Potassium (3.5-5.1) mmol/L 3.1 L Chloride (98-107) mmol/L 99 Carbon Dioxide (21.0-32.0) mmol/L 27.6 Anion Gap (3-11) mmol/L 11.4 H BUN (7-18) mg/dL 10 Creatinine (0.55-1.02) mg/dL 0.5 L Est GFR (CKD-EPI 2020) (mL/min/1.73m2) 102.73 Glucose (74-106) mg/dL 116 H Calcium (8.5-10.1) mg/dL 9.4 Magnesium (1.8-2.4) mg/dL 2.0 Cancelled Total Bilirubin (0.2-1.0) mg/dL 1.02 H AST (15-37) U/L 20 ALT (14-59) U/L 36 Alkaline Phosphatase (46-116) U/L 110 Troponin I (<or=51) ng/L 4 Cancelled NT-Pro-B Natriuret Pep (<300) pg/mL 200 Total Protein (6.4-8.2) g/dL Albumin (3.4-5.0) g/dL Lipase (16-77) U/L Range/Units 06/15/24 06/15/24 06/15/24 11:31 11:31 12:32 WBC (4.4-10.8) 10^3/uL RBC (3.93-5.22) 10^6/uL Hgb (11.2-15.7) g/dL Hct (36.0-46.0) % MCV (80-95) fL MCH (27.0-33.0) pg MCHC (32.0-36.0) % RDW (11.7-14.6) % Plt Count (130-400) 10^3/uL MPV (8.0-11.0) fL Immature Gran % % Neutrophils % % Lymphocytes % % Monocytes % % Eosinophils % % Basophils % % Nucleated RBC % (0.0-0.3) % Absolute Neutrophils (1.2-6.7) 10^3/uL Absolute Lymphocytes (1.2-3.4) 10^3/uL Absolute Monocytes (0.1-0.8) 10^3/uL Absolute Eosinophils (0.0-0.7) 10^3/uL Absolute Basophils (0.0-0.2) 10^3/uL D-Dimer (<500) ng/mlFEU VBG Lactate (0.6-1.4) mmol/L Sodium (136-145) mmol/L Potassium (3.5-5.1) mmol/L Chloride (98-107) mmol/L Carbon Dioxide (21.0-32.0) mmol/L Anion Gap (3-11) mmol/L BUN (7-18) mg/dL Creatinine (0.55-1.02) mg/dL Est GFR (CKD-EPI 2020) (mL/min/1.73m2) Glucose (74-106) mg/dL Calcium (8.5-10.1) mg/dL Magnesium (1.8-2.4) mg/dL Total Bilirubin (0.2-1.0) mg/dL AST (15-37) U/L ALT (14-59) U/L Alkaline Phosphatase (46-116) U/L Troponin I (<or=51) ng/L 4 NT-Pro-B Natriuret Pep (<300) pg/mL Cancelled Total Protein (6.4-8.2) g/dL 7.7 Albumin (3.4-5.0) g/dL 3.7 Lipase (16-77) U/L 23 Cancelled Quality:SDOH Health Related Social Needs: No Data to Display PFSH All Active Problems (Updated 06/15/24 @ 14:15 by KIRILL Lomas) Pneumonia (Acute) Gallstones (Acute) Aneurysm artery, iliac (Acute) Femoral hernia of right side (Acute) Inflammation and stiffening of spine (Acute) Arthralgia (Acute) Pelvic pain in female (Acute) Shingles (Acute) Exhaustion (Acute) Suprapubic pain (Acute) COVID-19 (Acute) 02/01/22 Vaccinated with one booster Laceration of finger of right hand with tendon involvement (Acute 03/17/21) Lymphadenopathy (Acute) Lumbar disc prolapse with compression radiculopathy (Chronic 08/27/12) spinal stenosis r leg radiculopathy Hypothyroidism (Chronic 04/08/13) Thyroid orbitopathy Fibromyalgia syndrome (Chronic 01/22/14) elevated MATTHEW 06/12/14;DNA DOUBLE STRANDED Ab, IgG; 177 Cardiolipin IgM; Indeterminate 12.5 Essential hypertension (Chronic 06/11/13) Chronic obstructive lung disease (Chronic) Cervical spondylosis (Chronic 08/27/12) Annual physical exam (Acute 06/03/15) Alcohol intake above recommended sensible limits (Acute 04/14/14) Abnormal WBC count (Chronic 11/12/14) Medical History (Updated 06/15/24 @ 14:15 by KIRILL Lomas) History of femoral hernia Thoracic back pain Closed fracture of humerus (11/04/07) Discoid lupus erythematosus (11/04/07) Hand joint pain (11/04/07) History of bone density study Smoker (11/04/07) H/O bone density study good 08/27/02 Discoid lupus erythematosus Suspected 11/04/07 Closed fracture of humerus right 11/04/07 Hand joint pain 11/04/07 Smoker Therapeutic procedure nerve root block and steroid injection--right S-1 04/07/15 Thrombocytosis Weight loss, abnormal (04/23/17) Unilateral inguinal hernia, without obstruction or gangrene, not specified as recurrent (10/01/15) Graves disease (06/12/13) 1981 WITH ABLATION; NOW ON REPLACEMENT Left inguinal hernia Hypothyroidism s/p ablation for grave's disease Fibromyalgia COPD (chronic obstructive pulmonary disease) Essential hypertension Surgical History (Updated 05/05/24 @ 09:35 by Vera Mcqueen RN) Hx of inguinal hernia repair (~03/2024) Bilateral, laproscopic Hx of lumbosacral spine surgery History of prior ablation treatment History of removal of cyst Status post laparoscopic hysterectomy Status post unilateral inguinal hernia repair (11/24/15) H/O removal of cyst wrist S/P laparoscopic hysterectomy for heavy bleeding; both ovaries remain H/O prior ablation treatment Graves Disease 08/27/81 S/P unilateral inguinal hernia repair left 11/24/15 Hysterectomy, Laproscopic (~1981) for heavy bleeding; still has both ovaries Repair of inguinal hernia (06/21/16) 06/21/16 removal of old mesh and repair 11/24/15; LEFT CYST REMOVAL (~1977) WRIST BONE DENSITY TEST (~2002) GOOD Recurrent major depression in partial remission (~1981) FOR GRAVES DISEASE Family History Mother , RESPIRATORY at age 78. Essential hypertension Mental disorder dementia Asthma Father , ETOH at age 56. Alcohol abuse Sister Essential hypertension Brother Asthma Maternal Grandfather , age 68 Essential hypertension Paternal Grandfather Diabetes Maternal Grandmother , age 68 Essential hypertension Paternal Grandmother No problems noted. Son No problems noted. Son No problems noted. Social History (Updated 01/07/24 @ 16:36 by Emilie Bonds) Smoking/Tobacco Use Status: Former Tobacco Use tobacco type: cigarettes Quit Date: 09/30/93 Tobacco: How many years used: 23 Second Hand Exposure: Yes Smoking risk assessment performed?: Yes Alcohol Intake: current Alcohol Intake frequency: 0-2 drinks per day Alcohol type: beer Substance use type: marijuana Details: 1 beer yesterday ,2 puff this AM Household members: spouse and family Housing: house Do you need help understanding health information?: Never Pets and animals: Yes Pets and animals: dog(s) Sexually active: No Do you think of yourself as: straight/heterosexual Current gender identity: female What is your relationship status?: How often do you talk on the phone with friends or family?: three or more times per week How often do you get together with friends or relatives?: three or more times per week How often do you attend yazdanism or jewish services?: 4 or more times per year Do you belong to any clubs or organized social groups?: no Panel score (0-1 are the most socially isolated patients): 2 Francesca/Orthodoxy: Hinduism Special francesca needs: No Seatbelt use: always Drive intox 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 wheelchair van driver: No Do you feel safe at home: Yes Do you feel safe in your relationship?: Yes Victim of physical abuse: No Victim of emotional abuse: No Victim of sexual abuse: No PAWSS Have you Been Recently Intoxicated or Drunk Within the Last 30 days?: No Have you Ever Experienced Previous Episodes of Alcohol Withdrawal?: No Have you ever Experienced Withdrawal Seizures?: No Have you ever Experienced Delirium Tremens(DT)s?: No Have you ever undergone Alcohol Rehabilitation Treatment (i.e, inpt ot outpatient treatment programs)?: No Have you ever Experienced Blackouts?: No Have you ever Combined Alcohol with other Downers within the last 90 days?: No Have you ever Combined Alcohol with any other Substance of Abuse during the last 90 days?: No Positive Blood Alcohol level on Presentation? [PCS.BAL]: No Evidence of Increased Autonomic Activity (i.e. HR>120, tremor, sweating, agitation, nausea)?: No Result: 0
[2024-06-15 11:41] LABS: Abs Immature Grans 0.09 10^3/uL (0.0-0.06); Absolute Eosinophil Count 0.12 10^3/uL (0.0-0.7); Absolute Lymphocyte Count 1.87 10^3/uL (1.2-3.4); Basophils % 0.5 %; Eosinophils % 0.7 %; HCT 39.6 % (36.0-46.0); HGB 13.6 g/dL (11.2-15.7); Immature Grans % 0.5 %; Lymphocytes % 10.7 %; MCHC 34.3 % (32.0-36.0); MCV 90 fL (80-95); MPV 8.9 fL (8.0-11.0); Monocytes % 7.6 %; Platelet Count 508 10^3/uL (130-400); RBC 4.39 10^6/uL (3.93-5.22); RDW 13.5 % (11.7-14.6); RDW-SD 44.9 fL; WBC 17.47 10^3/uL (4.4-10.8)
[2024-06-15 11:52] LABS: Absolute Basophil Count 0.09 10^3/uL (0.0-0.2); Absolute Monocyte Count 1.33 10^3/uL (0.1-0.8); Absolute Neutrophil Count 13.98 10^3/uL (1.2-6.7)
[2024-06-15 12:04] LABS: ALT 36 U/L (14-59); AST 20 U/L (15-37); Albumin 3.7 g/dL (3.4-5.0); Alkaline Phosphatase 110 U/L (46-116); Anion Gap 11.4 mmol/L (3-11); BUN 10 mg/dL (7-18); Bilirubin, Total 1.02 mg/dL (0.2-1.0); CO2 27.6 mmol/L (21.0-32.0); CREATININE 0.5 mg/dL (0.55-1.02); Calcium 9.4 mg/dL (8.5-10.1); Chloride 99 mmol/L (98-107); Estimated GFR 102.73 (mL/min/1.73m2); Glucose 116 mg/dL (74-106); Lipase 23 U/L (16-77); NT-proBNP 200 pg/mL (<300); Potassium 3.1 mmol/L (3.5-5.1); Sodium 138 mmol/L (136-145); Total Protein 7.7 g/dL (6.4-8.2); Troponin I 4 ng/L (<or=51)
[2024-06-15 12:13] LABS: D-Dimer 601 ng/mlFEU (<500)
--- NOTE | 2024-06-15 12:28 | DI.CT_ITS ---
Exam(s) CT CHEST PE ABD PELVIS W EXAM: CT CHEST PE ABD PELVIS W CLINICAL HISTORY: pleuritic chest pain, epigastric pain. TECHNIQUE: Imaging Protocol: Axial CT angiography was performed with multi-slice acquisition and mu lti-planar and/or 3D reconstructions. CONTRAST MATERIAL: Intravenous: Omnipaque 350contrast volume:100 mL COMPARISON: CT ABD PELVIS WITH CONTRAST from 05/01/2017 CR,XR XR PORTABLE CHEST AP from 01/25/[address] ABDOMEN PELVIS W from 02/08/2024 CT,NM,TMT NM MPI REST STRESS GRP from 02/11/2024 FINDINGS: CHEST: Tracheobronchial tree: There is mild bronchial wall thickening present. No evidence of bronchiectasi s. Pulmonary parenchyma: There is an infiltrate seen in the left lung base. No other focal consolidatin g infiltrates are seen. There is a triangular nodule associated with the right minor fissure anterio rly. No other pulmonary nodules are seen. Mild centrilobular emphysematous changes are seen in the lungs. Pulmonary Arteries: No evidence of filling defect to suggest pulmonary emboli. Mediastinum and Rhea: No dominant adenopathy or fluid collection. The esophagus is unremarkable. Ther e is a hiatal hernia present. Pleura: No effusion or pneumothorax. Heart: The heart is not dilated. Coronary artery calcifications are present. No pericardial effusion . Aorta: Thoracic aorta non-dilated. No evidence of dissection. Atherosclerotic calcification is prese nt. Bones: Within normal limits for the patient's age. Soft tissues: Unremarkable. ABDOMEN: Liver: Normal density. No measurable mass. Portal, Superior Mesenteric, and Splenic Veins: Unremarkable. Gallbladder and Biliary Tract: Tiny foci are seen in the gallbladder which may represent small stones . There is no biliary ductal dilatation. Pancreas: Normal density, no abnormal calcifications or inflammatory process. Spleen: Normal. There is again seen a calcified rounded lesion in the spleen which is unchanged. Adrenals: Unchanged thickening of the adrenal glands is seen but no discrete mass is present. Kidneys: Normal size, contour and axis. No radiodense stones or obstructive uropathy. There is a simp le cyst seen in the right kidney. No follow-up is recommended. Abdominal Aorta: Abdominal portion non-dilated. Atherosclerotic calcification is present. Bowel: There is diverticulosis of the colon without evidence of acute diverticulitis. There is no ev idence of bowel wall thickening or obstruction. Appendix is unremarkable. Peritoneal Cavity: No ascites, collection or mesenteric inflammatory response. No free air. Lymph Nodes: Within normal limits. Bones: Within normal limits for the patient's age. Soft Tissues: There is a right inguinal hernia containing fluid. PELVIS: Bladder: Symmetric distention, no gross wall thickening. Reproductive Organs: Status post hysterectomy. Lymph Nodes: Within normal limits. Bones: Within normal limits. IMPRESSION: 1. No evidence pulmonary embolism, thoracic aortic dissection or aneurysm. 2. Mild bronchial wall thickening which can be seen with bronchitis or reactive airways disease. 3. Small infiltrate in the right lung base which may represent atelectasis or pneumonia. 4. No acute abdominal or pelvic process. 5. Incidental findings in the abdomen and pelvis as described above. 6. 7 mm triangular shaped nodule associated with the right minor fissure. Follow-up CT scan in 1 leaa r should be considered. Unexpected findings RADIATION DOSE DELIVERED: 210.04mGy.cm Total DLP DATA REPOSITORY: All CT scans at this facility are submitted to the National Radiology Data Registry (NRDR) Dose Index Registry (DIR) with the [employer] (ACR). RADIATION OPTIMIZATION: All CT scans at this facility use at least one of these dose optimization te chniques: automated exposure control; mA and/or kV adjustment per patient size (includes targeted exa ms where dose is matched to clinical indication); or iterative reconstruction.
[2024-06-15] MEDS: Potassium Chloride 20 MEQ TABCR 40 MEQ PO (12:42)
[2024-06-15 13:03] LABS: Troponin I 4 ng/L (<or=51)
[2024-06-15] MEDS: Normal Saline - Diluent 50 ML VIAL IJ (13:09)
[2024-06-15] MEDS: Omnipaque 350 MG/ML 100 ML BTL IJ (13:10)
[2024-06-15] MEDS: Lidocaine 5% Patch 1 PATCH TP ×2 (14:42)
[2024-06-15] MEDS: Ketorolac 15 MG/ML VIAL IVP (14:42)
[2024-06-15] MEDS: ACETAMINOPHEN 1,000 MG/100 ML BTL 400 MG IVPB (14:43)
== END 2024-06-15 15:41 | disposition home or self-care (01) ==
PROVIDERS: Emergency Provider Physician Assistant; PCP Family Medicine
DX: J18.9 Pneumonia, unspecified organism (principal); J44.9 Chronic obstructive pulmonary disease, unspecified; I10 Essential (primary) hypertension; L93.0 Discoid lupus erythematosus; Z87.891 Personal history of nicotine dependence
CPT/HCPCS: 71275; 74177; 80053; 83690; 93005; 96365; 96375; 99285; 83605; 83735; 83880; 84484; 85025; 85379; 93010; J0131; J1885; J3490

== ENCOUNTER 2024-07-15 07:20 | Day surgery (SDC) | payer MEDICARE, SELFPAY ==
--- NOTE | 2024-07-14 17:53 | W.ANESPRE ---
General Info Date of Service Date Performed: 07/15/24 Height: 5 ft 1 in Weight: 47.23 kg Body Mass Index (BMI): 19.6 Surgical Procedure: Operation Date: 07/15/24 08:25 Proposed Procedure Side Surgeon p Cholecystectomy Laparoscopic Benjamin Patel MD Meds Allergies and Home Medications Allergies Allergy/AdvReac Type Severity Reaction Status Date / Time meloxicam (From Mobic) Allergy Intermediate NAVARRO's, Hives Verified 07/15/24 07:44 diazepam (From Valium) Allergy Mild Skin Rash Verified 07/15/24 07:44 nortriptyline AdvReac Intermediate Irritability Verified 07/15/24 07:44 and dizziness tramadol AdvReac Mild Lightheaded Verified 07/15/24 07:44 ness doxycycline AdvReac Tingling Verified 07/15/24 07:44 in hands gabapentin AdvReac Dizziness Verified 07/15/24 07:44 Home Medication ?Medication ?Instructions ?Recorded Chaga Tea 1 ea PO QID 10/21/15 arnica 1 ml topical DAILY 09/11/22 albuterol sulfate 90 mcg/actuation 2 puff inhalation Q4H PRN ##1 10/05/23 aerosol inhaler (ProAir HFA) aspirin 325 mg capsule 325 mg PO ONCE 01/25/24 simethicone 125 mg capsule (Gas-X 125 mg PO AC & HS PRN 01/31/24 Extra Strength) hydrochlorothiazide 25 mg tablet 25 mg PO DAILY hypertension #90 05/13/24 tabs ibuprofen 600 mg tablet 600 mg PO Q6H PRN #180 tab-caps 05/13/24 amlodipine 10 mg tablet 10 mg PO HS #90 tab-caps 06/15/24 potassium chloride 20 mEq 20 meq PO .qod 06/15/24 tablet,extended release Symbicort 160 mcg-4.5 2 puff inhalation BID #10.2 grams 06/19/24 mcg/actuation HFA aerosol inhaler (budesonide-formoterol) levothyroxine 75 mcg tablet 75 mcg PO HS 07/11/24 lidocaine 3 % topical cream 1 applic topical BID PRN 07/15/24 Current Visit Medications: Current Medications Generic Name Dose Route Start Last Admin Trade Name Freq PRN Reason Stop Dose Admin Heparin Sodium (Porcine) 5,000 units 07/15/24 06:00 Heparin 5,000 Units/Ml Vial SC 07/15/24 23:59 PREOP COOPER Sodium Chloride 1,000 mls @ 30 mls/hr 07/15/24 07:30 Saline 1000ml Bag IV 08/14/24 07:29 INFUSION COOPER Ringer's Solution 1,000 mls @ 80 mls/hr 07/15/24 06:00 IV 07/15/24 23:59 INFUSION COOPER Cefazolin Sodium/Dextrose 2 gm in 50 mls @ 100 mls/hr 07/15/24 06:00 Ancef Duplex IVPB 07/15/24 23:59 PREOP COOPER IV Miscellaneous Supplies 1 each 07/15/24 06:00 Iv Access IV 07/15/24 23:59 DIRECTED COOPER Sodium Chloride 0 ml 07/15/24 06:00 Normal Saline Flush 10 Ml Syr IV 07/15/24 23:59 PRN PRN Sodium Chloride 0 ml 07/15/24 06:00 Normal Saline 10 Ml Vial IJ 07/15/24 23:59 DIRECTED PRN Sterile Water 0 ml 07/15/24 06:00 Water,Injection,Sterile 10 Ml Vial IJ 07/15/24 23:59 DIRECTED PRN PFSH Active Problems Active Problems: Problem Status Onset Code Abnormal CT of the chest Acute R93.89 Pneumonia Acute J18.9 Gallstones Acute K80.20 Aneurysm artery, iliac Acute I72.3 Femoral hernia of right side Acute K41.90 Inflammation and stiffening of spine Acute M46.90 Arthralgia Acute M25.50 Pelvic pain in female Acute R10.2 Shingles Acute B02.9 Exhaustion Acute R53.83 Suprapubic pain Acute R10.2 COVID-19 Acute U07.1 Laceration of finger of right hand with tendon involvement Acute 03/17/21 S61.219A Lymphadenopathy Acute R59.1 Lumbar disc prolapse with compression radiculopathy Chronic 08/27/12 M51.16 Hypothyroidism Chronic 04/08/13 E03.9 Fibromyalgia syndrome Chronic 01/22/14 M79.7 Essential hypertension Chronic 06/11/13 I10 Chronic obstructive lung disease Chronic J44.9 Cervical spondylosis Chronic 08/27/12 M47.812 Annual physical exam Acute 06/03/15 Z00.00 Alcohol intake above recommended sensible limits Acute 04/14/14 Z72.89 Abnormal WBC count Chronic 11/12/14 D72.9 Medical History Medical History History of femoral hernia Thoracic back pain Closed fracture of humerus (11/04/07) Discoid lupus erythematosus (11/04/07) Hand joint pain (11/04/07) History of bone density study Smoker (11/04/07) H/O bone density study good 08/27/02 Discoid lupus erythematosus Suspected 11/04/07 Closed fracture of humerus right 11/04/07 Hand joint pain 11/04/07 Smoker Therapeutic procedure nerve root block and steroid injection--right S-1 04/07/15 Thrombocytosis Weight loss, abnormal (04/23/17) Unilateral inguinal hernia, without obstruction or gangrene, not specified as recurrent (10/01/15) Graves disease (06/12/13) 1982 WITH ABLATION; NOW ON REPLACEMENT Left inguinal hernia Hypothyroidism s/p ablation for grave's disease Fibromyalgia COPD (chronic obstructive pulmonary disease) Essential hypertension Surgical History Surgical History Hx of inguinal hernia repair (~03/2024) Bilateral, laproscopic Hx of lumbosacral spine surgery History of prior ablation treatment History of removal of cyst Status post laparoscopic hysterectomy Status post unilateral inguinal hernia repair (11/24/15) H/O removal of cyst wrist S/P laparoscopic hysterectomy for heavy bleeding; both ovaries remain H/O prior ablation treatment Graves Disease 08/27/81 S/P unilateral inguinal hernia repair left 11/24/15 Hysterectomy, Laproscopic (~1981) for heavy bleeding; still has both ovaries Repair of inguinal hernia (06/21/16) 06/21/16 removal of old mesh and repair 11/24/15; LEFT CYST REMOVAL (~1977) WRIST BONE DENSITY TEST (~2002) GOOD Recurrent major depression in partial remission (~1981) FOR GRAVES DISEASE Tobacco Smoking/Tobacco Use Status: Former Tobacco Use Passive smoking exposure: Yes Second hand exposure: Yes Alcohol Alcohol Intake: current Alcohol intake frequency: 0-2 drinks per day Alcohol type: beer Substance Use Substance use: Daily Substance use type: marijuana Vital Signs and Lab Results Vital Signs Most Recent Vital Signs in EMR: Temp Pulse Resp BP Pulse Ox 37.1 C 85 16 159/79 H 96 07/15/24 07:40 07/15/24 07:40 07/15/24 07:40 07/15/24 07:40 07/15/24 07:40 Lab Results Blood Type / Crossmatch: No Data to Display Complete Blood Count: White Blood Count 17.47 10^3/uL (4.4-10.8) H 06/15/24 11:31 Red Blood Count 4.39 10^6/uL (3.93-5.22) 06/15/24 11:31 Hemoglobin 13.6 g/dL (11.2-15.7) 06/15/24 11:31 Hematocrit 39.6 % (36.0-46.0) 06/15/24 11:31 Platelet Count 508 10^3/uL (130-400) H 06/15/24 11:31 Venous Blood Lactate 0.7 mmol/L (0.6-1.4) 06/15/24 11:31 Complete Metabolic Panel: Sodium 138 mmol/L (136-145) 06/15/24 11:31 Potassium 3.1 mmol/L (3.5-5.1) L 06/15/24 11:31 Chloride 99 mmol/L (98-107) 06/15/24 11:31 Carbon Dioxide 27.6 mmol/L (21.0-32.0) 06/15/24 11:31 BUN 10 mg/dL (7-18) 06/15/24 11:31 Creatinine 0.5 mg/dL (0.55-1.02) L 06/15/24 11:31 Est GFR (CKD-EPI 2020) 102.73 (mL/min/1.73m2) 06/15/24 11:31 Magnesium 2.0 mg/dL (1.8-2.4) 06/15/24 11:31 Calcium 9.4 mg/dL (8.5-10.1) 06/15/24 11:31 Albumin 3.7 g/dL (3.4-5.0) 06/15/24 11:31 Glucose 116 mg/dL (74-106) H 06/15/24 11:31 Liver Function Panel: Alanine Aminotransferase (ALT/SGPT) 36 U/L (14-59) 06/15/24 11:31 Aspartate Amino Transf (AST/SGOT) 20 U/L (15-37) 06/15/24 11:31 Coagulation Panel: D-Dimer 601 ng/mlFEU (<500) H 06/15/24 11:31 Cardiac Panel: Troponin I 4 ng/L (<or=51) 06/15/24 NT-Pro-B Natriuret Pep 200 pg/mL (<300) 06/15/24 Arterial Blood Gas: No Data to Display Venous Blood Gas: No Data to Display Pancreas Panel: Lipase 23 U/L (16-77) 06/15/24 11:31 Thyroid Panel: No Data to Display Infectious Disease: No Data to Display Blood Cultures: No Data to Display Toxicology Panel: No Data to Display Imaging and Studies Imaging and Studies Study information below may be from another EMR and interpreted by another provider. Please see original notes in EMR for more complete details. EKG Summary: EKG PATIENT NAME: Johana Salazar UNIT #: [id number] ORDERING PROVIDER: Gina Gotti M.D. PRIMARY CARE PROVIDER: ANA CAMPOS MD, DC DATE/TIME OF SERVICE: 06/15/241111 : 1955 PERFORMING LOCATION: ER APPROVED REPORT Exam: Resting ECG Reason for Exam: Chest Pain Patient Location: E HR:99 bpm ECG Measurements Heart Rate 99 AXIS IA 125 P 81 QRSd 86 QRS 20 QT 365 T26 QTc 468 Conclusion Sinus rhythm, rate 99 No interval abnormalities No STEMI <Electronically signed by Gina Gotti M.D. in OV> E-Sign Date: 06/15/24 E-Sign Time: 181 ADDENDUM APPROVED REPORT Exam: Resting ECG Reason for Exam: Chest Pain Patient Location: E HR:99 bpm ECG Measurements Heart Rate 99 AXIS IA 125 P 81 QRSd 86 QRS 20 QT 365 T26 QTc 468 Conclusion Sinus rhythm, rate 99 No interval abnormalities No STEMI I have reviewed and I agree with the emergency room physician's ECG interpretation. Electronically signed by: <Electronically signed by Nomi Rueda M.D. in OV> 06/16/24 0818 Cosigned by: Stress Test Summary: Patient Name: Johana Salazar Unit #: [id number] Loc: Ordering Provider: Ana Campos M.D., DC Status: REG [facility] Primary Care Provider: Ana Campos M.D., DC Date of Exam: 02/11/24 Sex: F Admission Date: 02/11/24 : 1955 Age: 68 APPROVED REPORT Exam: Exercise Treadmill Patient Location: Out-Patient Room/Bed: Stress Nurse: Jeanine Thomas RN Ordering Provider:ANA CAMPOS, Contact Number: [phone] BMI: 19.27 Baseline Rhythm: Sinus Rhythm Indications: Chest pressure, Medical History Medical History: Fibromyalgia, COPD, HTN, aneurysm-iliac, hx of smoking Cardiac Medications: Albuterol sulfate, aspirin, hydrochlorothiazide, amlodipine, symbicort Allergies: Meloxicam, valium, nortriptyline, tramadol, doxycycline, gabapentin Cardiac Risk Factors: Family hx, HTN, COPD, former smoker Previous Cardiac Procedures: None Pretest Chest Pain Characteristics: 3/10 chest ache Exercise History: Indeterminate Physical Disabilities: None Lung Sounds: Diminished LLB Heart Sounds: Regular Stress Test Details Test: Exercise stress testing was performed using a Torres protocol. Nuclear Acquisition: Rest Tc-99m/Stress Tc-99m 1 day Rest Isotope: Tc-99m Sestamibi. Dose: 10.9 Date: 02/11/2024 Injection Time: 0920 Stress Isotope: Tc-99m Sestamibi. Dose: 30.5 Date: 02/11/2024 Injection Time: 1120 HR Resting HR Supine: 83 bpmMax Heart Rate (APMHR): 153.383929 bpm Resting HR Standin bpmTarget HR (85% APMHR): 130.753216 bpm Max HR Achieved: 132 bpm % of APMHR: 86.27 Recovery HR: 94 bpm HR response to stress: Normal HR response to stress BP Resting BP Supine: 132/76 mmHg Resting BP Standin/92 mmHg Max BP: 162/94 mmHg Recovery BP: 128/78 mmHg BP response to stress: Normal blood pressure response to stress. ECG Resting ECG: Sinus Rhythm Ectopy: None Stress ECG: Sinus Tachycardia ST Change: No significant ST segment changes noted Arrhythmia: None Recovery ECG: Sinus Rhythm Recovery ST Change: Horizontal ST depression Lead(s): inferior leads Recovery ST Deviation: 1 mm Recovery Arrhythmia: None Clinical Reason for Termination: Target HR Achieved, mod SOB Stress Symptoms: Mod SOB Exercise duration: 08 min11 sec Highest Stage Reached: Stage 2: 2.5 mph at 12% grade. Exercise capacity: 10.16 METs Angina Score: Non-Limiting Pyle Treadmill Score: 3.5 Rate Pressure Product: 63385 Stress ECG Conclusion 1. Resting electrocardiogram showed poor R wave progression 2. Patient exercised on the Torres protocol and completed a workload of 10.16 METS 3. Normal heart rate and blood pressure response to exercise. The patient achieved 86% of maximal predicted heart rate for age 4. There was no electrocardiographic evidence of myocardial ischemia 5. See MPI report Pyle Treadmill Score is 3.5 which is Moderate risk. Stress Test Summary STAGETime (mins)Speed (mph)Grade (%)[id number] Lhlyhybo21728/82 [id number]/70887.5 262.312599Tmj SOB7 1 min [id number]/88Mod SOB 3 min [id number] 6 min [id number]/78All symptoms resolved Patient denied worsening of 3/10 chest ache. Mod SOB resolved prior to patient proceeding to imaging ambulatory in no apparent distress. MPI Conclusion Myocardial perfusion is normal. There is no ischemia or evidence of prior infarction Ejection fraction is 61% with normal wall motion Radiologist Interpretation Radiologist agrees with Television Anchor's Interpretation. Radiologist Interpretation by: Isela Lee MD Interpretation Date/Time: 02/11/2024 15:20:16 Ordered By: Ana Campos M.D., ALESSANDRO CC: JLUIS ORTIZ,NOMI GARCIA Dictated By: Nomi Rueda M.D. 02/11/24 1209 <Electronically signed by Nomi Rueda M.D. in OV> 02/11/24 1532 Transcribed By: Nomi Rueda MD 02/11/24 1209 This is privileged, confidential information intended only for the provider named. Any use or distribution by any person other than this provider is strictly prohibited. If you receive this report in error, please notify us immediately at [phone] and return the original report to us at the address above. Thank-you. Pulmonary Function Summary: Pulmonary Function Test PATIENT NAME: JOHANA SALAZAR UNIT #: [id number] ADMITTING PROVIDER: SABAS BANSAL MD PRIMARY CARE PROVIDER: ANA CAMPOS MD, DC DATE OF ADMIT: 06/14/15 : 1955 INTERPRETATION SPIROMETRY: Spirometry shows mild obstructive airways disease with significant bronchodilator response. LUNG VOLUMES: Lung volumes show no evidence of restriction. DIFFUSION CAPACITY: Normal. AIRWAY RESISTANCE: Normal. IMPRESSION: Mild obstructive airways disease with significant bronchodilator response. Clinical correlation recommended. document embedded image document embedded image Dictated by: SABAS BANSAL MD Dict Date: 06/14/15 Dict Time: 1235 <Electronically signed by SABAS BANSAL MD> Date: 06/16/15 Time: 1354 Anesthesia Assessment and Plan Anesthesia History Personal History: PONV and Delayed Emergence Family History: No Family History of Anesthesia Complications Exercise Tolerance Exercise Tolerance: Metabolic Equivalents>4 Pertinent Negatives Pertinent Negatives: No Symptoms of GERD, No Major Cardiovascular Symptoms or Complaints and No History of CVA/TIA Cardiac & Pulmonary Exam Cardiac Exam: Normal S1/S2 Heart Sounds Pulmonary Exam: Active Dry Cough Implantable Cardiac Device Does patient have a Pacemaker or an ICD?: No Airway Exam Known Difficult Airway: No Mallampati Class: 2 Mouth Opening: Normal (> 3cm) Thyromental Distance: Greater than 3 cm Neck Range of Motion: Limited ROM (Slightly limited this morning, reports stiff neck intermittently) Neck Circumference: Normal Teeth Condition: Normal Dentition (missing multiple teeth throughout, denies current sharp or broken) ASA Classification ASA Score: ASA 2 Emergency Case?: No NPO Status NPO Status: NPO Clears >2 hours, Solids >8 hours Anesthesia Plan Resuscitation Status: Full Code Anesthesia Technique: General Anesthesia Airway Planned: Endotracheal Tube Monitors Used: Standard Monitors Preoperative Comments:: 69 yo female for lap armani. hx of PONV (with back surgury) and delayed emergence. No changes in health history since last visit. sig PMHX: HTN (amlodipine, HCTZ), iliac artery aneurysm, COPD, LBP, neck pain, hypothyroid (levothyroxine), fibro. former smoker, occ EToh/cannabis. EKG: sinus Stress: EF 61%, no ischemia/scar. Previous Anes: - glide 3 grade 1.
[2024-07-15] VITALS (42 sets, daily range): BP systolic 132–159; BP diastolic 65–88; PULSE 73–94; RESP 12–22; TEMP 36.1–37.1; O2SAT 95–99; BMI 19.6
[2024-07-15] MEDS: Heparin 5,000 UNITS/ML VIAL 5000 UNITS SC (08:50)
[2024-07-15] MEDS: Lactated Ringers 1,000 ML 80 ML IV (09:00)
--- NOTE | 2024-07-15 09:29 | W.SURGCON ---
Date of service: 07/15/24 Time of Service: 09:29 Assessment and Plan Assessment and plan (1) Gallstones: Status: Acute Assessment and plan: 69-year-old woman with symptomatic gallstones. We had a long and detailed discussion in the office leading up to planning surgery. We talked again about the risks of surgery and in particular those risks are the possibility of persistent and continued abdominal discomfort despite gallbladder surgery. There is a low possibility but risk of post?cholecystectomy syndrome. There is a very small risk of bile duct injury and/or bile leak. She expresses understanding and wants to proceed. Overall plan: Laparoscopic cholecystectomy History of Present Illness Narrative: 69-year-old woman has symptomatic gallstones. She is due for her cholecystectomy and has been waiting to heal her femoral hernia repair. She has been doing great since her hernia repair and has no complaints. Her umbilical wound is healed up perfectly. She continues to have daily vague epigastric discomfort related to eating that she attributes to gallstones. PFSH All Active Problems Abnormal CT of the chest (Acute) Pneumonia (Acute) Gallstones (Acute) Aneurysm artery, iliac (Acute) Femoral hernia of right side (Acute) Inflammation and stiffening of spine (Acute) Arthralgia (Acute) Pelvic pain in female (Acute) Shingles (Acute) Exhaustion (Acute) Suprapubic pain (Acute) COVID-19 (Acute) 02/01/22 Vaccinated with one booster Laceration of finger of right hand with tendon involvement (Acute 03/17/21) Lymphadenopathy (Acute) Lumbar disc prolapse with compression radiculopathy (Chronic 08/27/12) spinal stenosis r leg radiculopathy Hypothyroidism (Chronic 04/08/13) Thyroid orbitopathy Fibromyalgia syndrome (Chronic 01/22/14) elevated MATTHEW 06/12/14;DNA DOUBLE STRANDED Ab, IgG; 177 Cardiolipin IgM; Indeterminate 12.5 Essential hypertension (Chronic 06/11/13) Chronic obstructive lung disease (Chronic) Cervical spondylosis (Chronic 08/27/12) Annual physical exam (Acute 06/03/15) Alcohol intake above recommended sensible limits (Acute 04/14/14) Abnormal WBC count (Chronic 11/12/14) Medical History History of femoral hernia Thoracic back pain Closed fracture of humerus (11/04/07) Discoid lupus erythematosus (11/04/07) Hand joint pain (11/04/07) History of bone density study Smoker (11/04/07) H/O bone density study good 08/27/02 Discoid lupus erythematosus Suspected 11/04/07 Closed fracture of humerus right 11/04/07 Hand joint pain 11/04/07 Smoker Therapeutic procedure nerve root block and steroid injection--right S-1 04/07/15 Thrombocytosis Weight loss, abnormal (04/23/17) Unilateral inguinal hernia, without obstruction or gangrene, not specified as recurrent (10/01/15) Graves disease (06/12/13) 1981 WITH ABLATION; NOW ON REPLACEMENT Left inguinal hernia Hypothyroidism s/p ablation for grave's disease Fibromyalgia COPD (chronic obstructive pulmonary disease) Essential hypertension Surgical History Hx of inguinal hernia repair (~03/2024) Bilateral, laproscopic Hx of lumbosacral spine surgery History of prior ablation treatment History of removal of cyst Status post laparoscopic hysterectomy Status post unilateral inguinal hernia repair (11/24/15) H/O removal of cyst wrist S/P laparoscopic hysterectomy for heavy bleeding; both ovaries remain H/O prior ablation treatment Graves Disease 08/27/81 S/P unilateral inguinal hernia repair left 11/24/15 Hysterectomy, Laproscopic (~1981) for heavy bleeding; still has both ovaries Repair of inguinal hernia (06/21/16) 06/21/16 removal of old mesh and repair 11/24/15; LEFT CYST REMOVAL (~1977) WRIST BONE DENSITY TEST (~2002) GOOD Recurrent major depression in partial remission (~1981) FOR GRAVES DISEASE Family History Mother , RESPIRATORY at age 78. Essential hypertension Mental disorder dementia Asthma Father , ETOH at age 56. Alcohol abuse Sister Essential hypertension Brother Asthma Maternal Grandfather , age 68 Essential hypertension Paternal Grandfather Diabetes Maternal Grandmother , age 68 Essential hypertension Paternal Grandmother No problems noted. Son No problems noted. Son No problems noted. Social History (Updated 01/07/24 @ 16:36 by Emilie Bonds) Smoking/Tobacco Use Status: Former Tobacco Use tobacco type: cigarettes Quit Date: 09/30/93 Tobacco: How many years used: 23 Second Hand Exposure: Yes Smoking risk assessment performed?: Yes Alcohol Intake: current Alcohol Intake frequency: 0-2 drinks per day Alcohol type: beer Drug use: Daily Substance use type: marijuana Household members: spouse and family Housing: house Do you need help understanding health information?: Never Pets and animals: Yes Pets and animals: dog(s) Sexually active: No Do you think of yourself as: straight/heterosexual Current gender identity: female What is your relationship status?: How often do you talk on the phone with friends or family?: three or more times per week How often do you get together with friends or relatives?: three or more times per week How often do you attend gnosticist or scientologist services?: 4 or more times per year Do you belong to any clubs or organized social groups?: no Panel score (0-1 are the most socially isolated patients): 2 Francesca/Hoahaoism: Tenriism Special francesca needs: No Seatbelt use: always Drive intox 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 driver operator: No Do you feel safe at home: Yes Do you feel safe in your relationship?: Yes Victim of physical abuse: No Victim of emotional abuse: No Victim of sexual abuse: No Exam Narrative Exam Narrative: Gen: Non-toxic, comfortable and interactive Neuro: Alert and oriented x3 Psych: Good mood and affect. Good insight and understanding into condition. Chest: Non-labored breathing, no wheezing, no visible shortness of breath. Heart: Regular Abdomen: Soft, nondistended and nontender. Well?healed surgical incisions Results Last Vital Signs Temp 98.8 F 07/15/24 07:40 Pulse 85 07/15/24 07:40 Resp 16 07/15/24 07:40 BP 159/79 H 07/15/24 07:40 Pulse Ox 96 07/15/24 07:40
[2024-07-15] MEDS: ceFAZolin 2 GM/50 ML BAG IVPB (09:40)
[2024-07-15] MEDS: Bupivacaine LIPOSOME/PF 133 MG/10 ML VIAL IJ (10:06)
[2024-07-15] MEDS: Bupivacaine 0.25% Pres-Free 30 ML VIAL (10:06)
[2024-07-15] MEDS: Normal Saline 20 ML VIAL (10:07)
--- NOTE | 2024-07-15 10:18 | GB_PTH ---
PATIENT: Johana Sen LOC: [facility] U#:[id number] AGE/SX: 69/F ROOM: RE07/15/[address]: Benjamin Patel : 1955 BED: DIS: 07/15/2024 SPEC #: [id number] RECD: 07/15/24 12:46 STATUS: GETACHEW REQ #: [id number] REBECCA: 07/15/24 10:[address]: Benjamin Patel DEPT: Surgical Specimen RECD BY: Carol Victoria ENTERED: 07/15/24 12:47 SP TYPE: GB OTHR DR: Ana Campos MD, DC Tissues: 1 - GALLBLADDER Procedures: GROSS AND MICRO LEVEL 3 Comments: [id number]
--- NOTE | 2024-07-15 10:34 | ROE_ITS ---
Operative Note Operative Note Refer to Anesthesia Record Procedure Description: Procedures performed: 1. Laparoscopic cholecystectomy 2. Bilateral laparoscopic TAP block Pre-op diagnosis: Symptomatic gallstones Postoperative diagnosis: Same Surgeon: Glendy Patel Anesthesia: [employer] Assistant: Robyn Indication for procedure: 69-year-old woman with very chronic, episodic, postprandial epigastric discomfort in the setting of gallstones. FINDINGS: Nondistended and overall non-inflamed gallbladder. Normal biliary anatomy Specimens: 1. Gallbladder Complications: None Blood loss: 5 cc Urine output: Not measured Implants/drains: None Procedure in detail: Patient gave written consent and was in agreement with the indications, the likely benefits as well as the potential risks of surgery. She was taken back to the operating room where anesthesia was administered which was tolerated well. She was positioned supine on the operating room table and we then prepped and draped in sterile fashion. We confirmed DVT prophylaxis as well as antibiotics had been administered. When we were all in agreement with our timeout we started the procedure. Local anesthetic was injected at the umbilicus. A small stab incision was made within the umbilicus and a 5 mm trocar was used to enter the abdominal cavity through this. Insufflation was performed which was tolerated well. 2 more trocars were placed under direct visualization in the right hemiabdomen. Local anesthetic was also given in each of the sites. A 12 mm port was placed in the epigastrium under visualization. I performed an TAP block under direct visualization along both abdominal rosario with combination of short and long?acting local anesthetic. The fundus of the gallbladder was grasped and retracted towards the patient's left shoulder cephalad. This nicely exposed the biliary plate and the relevant anatomy. A combination of blunt and electrocautery dissection was performed isolating the cystic duct and the cystic artery. The entire cystic plate was cleared off confirming only 2 structures seen going into the gallbladder. These were clipped and divided. I then removed the rest of the gallbladder off the liver bed using electrocautery. It was placed in an Endo Catch bag and removed from the abdominal cavity. The specimen was passed off the back table and placed in formalin. I then checked the gallbladder fossa for any bile leaking or any bleeding. Hemostasis was excellent and there was no evidence of any bile leaking from the bed. The 12 mm port site was then closed with 0 Vicryl in the fascia using a Cristobal- Patricia. I rechecked for hemostasis 1 last time and it remained excellent. We released pneumoperitoneum. I removed the 5 mm trocars. The skin was closed with running Monocryl and Dermabond was placed on top of each site. Patient tolerated the procedure well. The sponge, instruments and sharps counts were correct x3 at the end of the procedure. She was extubated and taken to the PACU in hemodynamically stable condition. Date of Procedure: 07/15/24
--- NOTE | 2024-07-15 10:39 | W.PM.DSUDISC ---
Date of service: 07/15/24 Time of Service: 10:39 Discharge Plan Disposition Patient Disposition: Home Condition: Good Discharge Details Attending Provider: Benjamin Patel Primary Care Provider: Ana Campos Home Meds and New Rx's Prescriptions: No Action simethicone [Gas-X Extra Strength] 125 mg capsule 125 mg PO AC & HS PRN chaga tea 1 ea PO QID albuterol sulfate [ProAir HFA] 90 mcg/actuation HFA aerosol inhaler 2 puff Inhalation Q4H PRN Qty: 1 12RF ibuprofen 600 mg tablet 600 mg PO Q6H PRN Qty: 180 0RF hydrochlorothiazide 25 mg tablet 25 mg PO DAILY Qty: 90 3RF amlodipine 10 mg tablet 10 mg PO HS Qty: 90 4RF budesonide-formoterol [Symbicort] 160-4.5 mcg/actuation HFA aerosol inhaler 2 puff inhalation BID Qty: 10.2 12RF aspirin 325 mg capsule 325 mg PO ONCE arnica Tincture 1 ml topical DAILY potassium chloride 20 mEq tablet extended release 20 meq PO .qod levothyroxine 75 mcg tablet 75 mcg PO HS lidocaine 3 % cream 1 applic topical BID PRN Discharge Instructions Additional Instructions: Incisions: Keep clean and dry but they do not need to be covered. It is okay to shower but no tub bathing for 1 week. You can peel the glue off after 1 week. Activity: As tolerated. There are no restrictions. Return to work, as tolerated in the next few days. If you need a work note call the surgery office. Diet: Low-fat diet without greasy or fatty foods for the next 4 to 6 weeks. Re? introduce regular food as tolerated after that time. Medications: Resume all of your usual/regular home medications Follow-up: Follow-up is optional. If you are having any issues or concerns call the surgery office immediately. If you want to have a routine follow-up that is perfectly fine and you can call and schedule an. If everything is otherwise going well, you do not need to follow-up. Pain control: Take Tylenol, 1000 mg, every 6 hours on a schedule for the next 3 days. You can use ibuprofen in addition to Tylenol and use the narcotic medication only as necessary for pain preventing you from sleeping. Overall: Any symptoms should not be worsening. If you have any difficulty breathing or you have return of symptoms of brought you to the hospital or your pain is otherwise worsening each day and you should call the doctor's office or come into the hospital to be checked out. Activity:: Activity as Tolerated Diet:: As Tolerated DS: Diagnosis Discharge Diagnosis (1) Gallstones: Status: Acute
--- NOTE | 2024-07-15 10:52 | W.ANESPOSTOP ---
Postoperative Evaluation Date, Time and Location Date Performed: 07/15/24 Time Performed: 10:52 Patient Location: PACU Vital Signs Most Recent Imported Vital Signs: Most Recent Vital Signs Temp Pulse Resp BP Pulse Ox 36.1 C L 80 20 140/74 98 07/15/24 10:43 07/15/24 10:43 07/15/24 10:45 07/15/24 10:43 07/15/24 10:45 Pain Score Most Recent Pain Score: Most Recent Pain Score Pain Level 2 07/15/24 07:40 Assessment Mental Status: Arousable with meaningful communication Airway and Respiratory Function: Patent airway with normal (patient baseline) respiratory exam Cardiovascular Function: Hemodynamically Stable Hydration Status: Adequately Hydrated Nausea & Vomiting: No Nausea or Vomiting Pain: Pain is Moderate or Severe Postoperative Pain Management: Pain being addressed with medication Peripheral Nerve Block: Patient did not receive a nerve block
[2024-07-15] MEDS: Ketorolac 15 MG/ML VIAL 10 MG IVP (10:53)
[2024-07-15] MEDS: ACETAMINOPHEN 650 MG/65 ML BAG 260 MG IVPB (11:07)
[2024-07-15] MEDS: fentaNYL 100 MCG/2 ML VIAL IVP ×2 (11:46→11:57)
== END 2024-07-15 13:40 | disposition home or self-care (01) ==
PROVIDERS: PCP Family Medicine; Visit Provider Student in an Organized Health Care Education/Training Program
PROC: 0FT44ZZ Resection of Gallbladder, Percutaneous Endoscopic Approach (ICD-10-PCS; CPT 47562; principal; 2024-07-15 09:15)
DX: K80.10 Calculus of gallbladder with chronic cholecystitis without obstruction (principal); I10 Essential (primary) hypertension
CPT/HCPCS: 47562; 00123; 88304; C9290; J0131; J0665; J0690; J1100; J1644; J1885; J2405; J2704; J3010; J3475

== ENCOUNTER 2024-09-25 08:27 | Outpatient (CLI) | payer OTHER, SELFPAY ==
[2024-09-25] MEDS: Inhaler, Assist Device 1 EACH MC (11:22)
[2024-09-25] MEDS: Levalbuterol HFA 15 GM INH 4 PUFF IH (11:23)
--- NOTE | 2024-09-30 16:17 | W.PFT ---
Date of service: 09/25/24 Time of Service: 10:02 Pulmonary Function Test Result Indications: COPD Interpretation Spirometry: There is moderate airflow limitation. No significant bronchodilator response. Lung Volumes: There is air trapping Diffusion Capacity: Normal diffusion Airway Pressure: Increased airways resistance Impression Moderate airflow obstruction with air trapping and a normal diffusion. Clinical Correlation therefore is recommended.
== END 2024-09-25 08:28 | disposition home or self-care (01) ==
LOC: RT 08:28
PROVIDERS: PCP Family Medicine; Visit Provider Student in an Organized Health Care Education/Training Program
DX: J44.9 Chronic obstructive pulmonary disease, unspecified (principal)
CPT/HCPCS: 94060; 94726; 94729

== ENCOUNTER 2024-12-26 01:36 | Outpatient (CLI) | payer OTHER, SELFPAY ==
--- NOTE | 2024-12-26 06:30 | DI.DEXA_ITS ---
Exam(s) XR DEXA BONE DENSITY W/WO IRAM EXAM: XR DEXA BONE DENSITY W/WO IRAM CLINICAL HISTORY: screening for osteoporosis in postmenopausal state,Z78.0 TECHNIQUE: [employer] Horizon C densitometer analysis of left hip, lumbar spine and left forearm. Lat eral survey image of the thoracic and lumbar spine. COMPARISON: Two thousand three FINDINGS: Lateral view of the thoracic and lumbar spine shows no evidence of compression fractures. Bone mineral density measurements of the lumbar spine correspond to a total T-score of -0.5, in the normal range. This represents a 15.2 percent decrease compared to 2003. Bone mineral density measurements of the left hip correspond to a total T-score of -2.2. This repre sents a 29.3 percent decrease compared with 2003 the femoral neck T-score is -3.0, in the osteoporot ic range. Theleft forearm bone mineral density measurements correspond to a T-score of the distal 3rd of -2.0, in the osteopenic range. The forearm was not analyzed in 2002 IMPRESSION: Normal bone mineral density of the spine. Osteoporosis of the hip. Osteopenia of the forearm.
--- NOTE | 2024-12-26 06:30 | DI.MAMMO_ITS ---
Exam(s) MAMMO SCREENING EXAM: MAMMO SCREENING CLINICAL HISTORY: screening,z12.39 TECHNIQUE: Mammograms were interpreted according to the usual protocol including computer analysis w [employer] CAD system, tomosynthesis and C-view imaging. COMPARISON: 2014 through 2021 FINDINGS: The breasts are composed of scattered fibroglandular densities, Breast Density category B. No suspicious masses or suspicious microcalcifications are seen. No skin thickening or abnormal axillary lymph nodes are seen. There has been no significant change from prior exams. IMPRESSION: BI-RADS Category 1, Negative mammogram Yearly screening mammography is recommended. Breast Density - Category B, scattered fibroglandular densities. Breast density Category C or D implies that the patient has dense breast tissue. Dense breast tissue can make it harder to find cancer on a mammogram. Dense breast tissue is also associated with an incr eased risk of breast cancer. This information about the result of the mammogram report was provided to the patient to raise their awareness. Use this report when you speak with the patient about their risks for breast cancer, which includes their family history. At that time, you may recommend additional screening tests (Ultrasoun d or MRI) as these tests may add significant information. A negative radiographic report should not delay biopsy if a dominant or clinically suspicious mass is present. Up to ten percent of cancers are not identified on mammography. A negative report may reinforce clinical impression. Adenosis and dense breasts may obscure an underlying neoplasm. False positive reports average 6 to 10%. Patient will receive a letter notifying them of these results.
== END 2024-12-26 01:56 ==
LOC: DI 01:36
PROVIDERS: PCP Family Medicine; Visit Provider Family Medicine
DX: Z12.31 Encounter for screening mammogram for malignant neoplasm of breast (principal); Z78.0 Asymptomatic menopausal state; Z13.820 Encounter for screening for osteoporosis; M81.0 Age-related osteoporosis without current pathological fracture
CPT/HCPCS: 77063; 77067; 77080

== ENCOUNTER 2025-01-12 04:16 | Outpatient (CLI) | payer OTHER, SELFPAY ==
[2025-01-12 12:31] LABS: ALT 34 U/L (14-59); AST 22 U/L (15-37); Albumin 3.6 g/dL (3.4-5.0); Alkaline Phosphatase 124 U/L (46-116); Anion Gap 8.9 mmol/L (3-11); BUN 9 mg/dL (7-18); Bilirubin, Total 0.7 mg/dL (0.2-1.0); CO2 30.1 mmol/L (21.0-32.0); CREATININE 0.6 mg/dL (0.55-1.02); Calcium 9.6 mg/dL (8.5-10.1); Chloride 97 mmol/L (98-107); Estimated GFR 97.71 (mL/min/1.73m2); Glucose 105 mg/dL (74-106); Potassium 3.1 mmol/L (3.5-5.1); Sodium 136 mmol/L (136-145); TSH (W/Ref FT4) 18.65 uIU/mL (0.36-3.74); Total Protein 7.7 g/dL (6.4-8.2)
[2025-01-12 12:45] LABS: HCT 39.3 % (36.0-46.0); HGB 13.6 g/dL (11.2-15.7); MCHC 34.6 % (32.0-36.0); MCV 90 fL (80-95); MPV 9.9 fL (8.0-11.0); Platelet Count 525 10^3/uL (130-400); RBC 4.39 10^6/uL (3.93-5.22); RDW 14.7 % (11.7-14.6); RDW-SD 47.8 fL
[2025-01-12 12:50] LABS: FREE T4 1.16 ng/dL (0.76-1.46)
== END 2025-01-12 04:17 | disposition home or self-care (01) ==
LOC: LOS 04:16
PROVIDERS: PCP Family Medicine; Visit Provider Family Medicine
DX: J44.9 Chronic obstructive pulmonary disease, unspecified (principal); R59.1 Generalized enlarged lymph nodes; R53.83 Other fatigue; I10 Essential (primary) hypertension; E03.9 Hypothyroidism, unspecified
CPT/HCPCS: 36415; 80053; 85027; 84439; 84443

== ENCOUNTER 2025-03-28 07:07 | Emergency (ER) | payer OTHER, SELFPAY ==
[2025-03-28 07:12] VITALS: BP 164/108; PULSE 98; RESP 16; TEMP 36.8; O2SAT 97
--- NOTE | 2025-03-28 07:21 | W.ED.GENAD ---
Discharge Plan Disposition Patient Disposition: Home Condition: Stable Discharge Details Clinical Impression: Dental infection Primary Care Provider: Ana Campos ED Provider: Gina Gotti Home Meds and New Rx's Prescriptions: New amoxicillin-pot clavulanate 875-125 mg tablet 1 tab PO BID 10 Days Qty: 20 0RF No Action budesonide-formoterol [Symbicort] 160-4.5 mcg/actuation HFA aerosol inhaler 2 puff inhalation BID Qty: 10.2 12RF Trelegy Ellipta 200-62.5-25 mcg blister with device 1 inh inhalation DAILY Qty: 60 4RF chaga tea 1 ea PO QID hydrochlorothiazide 25 mg tablet 25 mg PO DAILY Qty: 90 3RF amlodipine 10 mg tablet 10 mg PO HS Qty: 90 4RF levothyroxine 75 mcg tablet 75 mcg PO HS Qty: 90 3RF ibuprofen 600 mg tablet 600 mg PO Q6H PRN Qty: 180 0RF albuterol sulfate 90 mcg/actuation HFA aerosol inhaler 2 puff Inhalation Q4H PRN Qty: 8.5 12RF potassium chloride 20 mEq tablet extended release 20 meq PO BID Qty: 180 3RF aspirin 325 mg capsule 325 mg PO DAILY PRN lidocaine 3 % cream 1 applic topical BID PRN Discharge Instructions Instructions: Tooth Abscess ED Additional Instructions: You were seen in the emergency department today for evaluation of dental pain and facial swelling due to a broken tooth. In our department a full physical examination performed, and at this time have a reassuring exam. We discussed starting antibiotics, these have been sent to your pharmacy. Please use all of the medication until its gone, even if you start to feel better. You need to contact your dentist on Sunday to schedule an extraction. Please use therapeutic dosing of Tylenol (acetaminophen) & Advil (ibuprofen) in an alternating fashion as follows: Take 1000mg of Tylenol every 6 hours without missing doses- that is 4 times per day. Detention in between the Tylenol doses, take 600mg of Advil also on a 6 hour schedule, that is also 4 times per day. With this strategy, you will be taking something for fever/pain as often as every 3 hours. The daily maximum dosing of Tylenol is 4000mg, and the daily maximum dosing of Advil is 2400mg. Please note that some common cold medications & prescription pain medications may contain acetaminophen and you need to read OTC drug labels and factor that in to maximum daily doses. If you develop fever, cannot open your mouth or move your neck, or cannot swallow or maintain your hydration you need to return to the emergency department immediately for reevaluation. That may include laboratory studies as well as imaging. Please follow-up with your primary care provider in the next few days to discuss this visit and any symptoms that change, worsen, or persist. Thank you for allowing us to be part of your care. HPI General Mode of arrival: ambulatory. Date/Time Provider Initiated Documentation: 03/28/25 07:12. Limitations to Documentation: no limitations. Information obtained by: patient and old records reviewed. HPI Narrative: This is a 69-year-old female patient with a past medical history significant for hypertension, COPD, lupus, presenting for evaluation of a dental infection. The patient reports that she has had a fractured tooth for some time, states that she started to notice a little bit of swelling last night and this morning woke up with some swelling on the left side of her face. She reports that her eye felt puffy but denies vision changes. She states that she has been managing her pain at home with Orajel as well as Tylenol and ibuprofen. She has been using cold compresses over her face. She reports that her pain is managed, but she is concerned for infection. She has a dentist that she will call on Sunday when their clinic opens. The patient reports no difficulty in opening her mouth or moving her neck. She has been able to eat and drink and swallow without difficulty. Denies fever or chills. Is otherwise in her normal state of health. Related Data Home Medications ?Medication ?Instructions ?Recorded ?Confirmed Chaga Tea 1 ea PO QID 10/21/15 03/28/25 hydrochlorothiazide 25 mg tablet 25 mg PO DAILY hypertension #90 05/13/24 03/28/25 tabs amlodipine 10 mg tablet 10 mg PO HS #90 tab-caps 06/15/24 03/28/25 lidocaine 3 % topical cream 1 applic topical BID PRN 07/15/24 03/28/25 levothyroxine 75 mcg tablet 75 mcg PO HS #90 tabs 08/11/24 03/28/25 ibuprofen 600 mg tablet 600 mg PO Q6H PRN #180 tab-caps 09/12/24 03/28/25 Symbicort 160 mcg-4.5 2 puff inhalation BID #10.2 grams 09/18/24 03/28/25 mcg/actuation HFA aerosol inhaler (budesonide-formoterol) aspirin 325 mg capsule 325 mg PO DAILY PRN 09/18/24 03/28/25 fluticasone fur. 200 mcg-umeclid 1 inh inhalation DAILY #60 ea 09/18/24 03/28/25 62.5 mcg-vilant 25 mcg inhalat.powder (Trelegy Ellipta) Held on 09/23/24. Instructions: Patient Refused albuterol sulfate 90 mcg/actuation 2 puff inhalation Q4H PRN #8.5 12/03/24 03/28/25 aerosol inhaler grams potassium chloride 20 mEq 20 meq PO BID #180 tabs 01/12/25 03/28/25 tablet,extended release amoxicillin 875 mg-potassium 1 tab PO BID 10 days #20 tabs 03/28/25 clavulanate 125 mg tablet Previous Rx's ?Medication ?Instructions ?Recorded hydrochlorothiazide 25 mg tablet 25 mg PO DAILY hypertension #90 05/13/24 tabs amlodipine 10 mg tablet 10 mg PO HS #90 tab-caps 06/15/24 levothyroxine 75 mcg tablet 75 mcg PO HS #90 tabs 08/11/24 ibuprofen 600 mg tablet 600 mg PO Q6H PRN #180 tab-caps 09/12/24 Symbicort 160 mcg-4.5 2 puff inhalation BID #10.2 grams 09/18/24 mcg/actuation HFA aerosol inhaler (budesonide-formoterol) fluticasone fur. 200 mcg-umeclid 1 inh inhalation DAILY #60 ea 09/18/24 62.5 mcg-vilant 25 mcg inhalat.powder (Trelegy Ellipta) Held on 09/23/24. Instructions: Patient Refused albuterol sulfate 90 mcg/actuation 2 puff inhalation Q4H PRN #8.5 12/03/24 aerosol inhaler grams potassium chloride 20 mEq 20 meq PO BID #180 tabs 01/12/25 tablet,extended release amoxicillin 875 mg-potassium 1 tab PO BID 10 days #20 tabs 03/28/25 clavulanate 125 mg tablet Allergies Allergy/AdvReac Type Severity Reaction Status Date / Time meloxicam (From Mobic) Allergy Intermediate NAVARRO's, Hives Verified 03/28/25 07:16 diazepam (From Valium) Allergy Mild Skin Rash Verified 03/28/25 07:16 nortriptyline AdvReac Intermediate Irritability Verified 03/28/25 07:16 and dizziness tramadol AdvReac Mild Lightheaded Verified 03/28/25 07:16 ness doxycycline AdvReac Tingling Verified 03/28/25 07:16 in hands gabapentin AdvReac Dizziness Verified 03/28/25 07:16 General Stated Complaint: DentalOral CLARIBEL: 4 Exam Narrative Exam Narrative: Gen: Awake and alert, in no apparent distress HEENT: Non-icteric sclera, PERRL, EOMs are full and without nystagmus or entrapment. Inferior periorbital edema appreciated on the left. The patient does have left sided facial swelling over the cheek and maxillary region. Dental examination reveals poor dentition and a fracture of the tooth #14 with no appreciable periapical abscess. The floor of her mouth is soft, no trismus, no purulence with expression of the parotid gland. Neck: Supple, full range of motion without limitation or meningismus. Lungs: No apparent respiratory distress, normal respiratory effort. CV: Appears well perfused, heart with regular rate and rhythm, strong distal pulses Abdomen: Non-distended MSK: Moves 4 extremities without apparent limitation in ROM Skin: Visualized skin without rashes, cyanosis. Neuro: Normal Gait, no obvious focal deficits or facial asymmetry. Speaks in full, clear sentences. Psych: Appropriate for situation. Course Vital Signs Vital signs: Vital Signs Temperature 36.8 C 03/28/25 07:12 Pulse 98 H 03/28/25 07:12 Respiratory Rate 16 03/28/25 07:12 Blood Pressure 164/108 H 03/28/25 07:12 Pulse Oximetry 97 03/28/25 07:12 Temperature 36.8 C 03/28/25 07:12 Temperature Source Oral 03/28/25 07:12 Pulse 98 H 03/28/25 07:12 Respiratory Rate 16 03/28/25 07:12 Blood Pressure 164/108 H 03/28/25 07:12 Blood Pressure Position Sitting 03/28/25 07:12 Pulse Oximetry 97 03/28/25 07:12 Oxygen Delivery Method Room Air 03/28/25 07:12 Oxygen Flow Rate 0 03/28/25 07:12 Medical Decision Making This is a 69-year-old female patient presenting for evaluation of facial swelling and dental pain. My differential includes but is not limited to dental abscess, no evidence for periapical abscess, I did consider deep space infection including retropharyngeal abscess, Ubd's angina, though the patient is at this time without fever, chills, significant tachycardia, or other worrisome clinical evidence of same. She does not meet criteria for sepsis or bacteremia. She is maintaining her hydration and I have a low concern for metabolic and electrolyte derangements. The patient and I had a shared decision-making conversation regarding workup and management. We will start her on Augmentin orally, and I did discuss laboratory studies and imaging. The patient is hopeful to trial antibiotics alone and I think that this is not unreasonable given her otherwise reassuring examination. She is able to return to the emergency department if her condition was to worsen, such as the development of trismus, fever or chills, difficulty swallowing, etc. I provided her with a course of Augmentin x 10 days, and counseled her on conservative management of pain. At this time, the patient has had a full medical evaluation and is safe for discharge to home. They are hemodynamically stable, ambulatory, and tolerating PO. They are understanding of the follow-up plan and return precautions. They left our facility without incident. Gina Gotti MD Quality:SDOH Health Related Social Needs: Health related social needs house/econ circumstance PFSH All Active Problems (Updated 03/28/25 @ 07:22 by Gina Gotti MD) Dental infection (Acute) Fatigue (Acute) Osteoporosis as sequela of radiotherapy (Acute) Incidental lung nodule, > 3mm and < 8mm (Acute) Discoid lupus erythematosus (Chronic 11/04/07) Gallstones (Chronic) Aneurysm artery, iliac (Chronic) Femoral hernia of right side (Chronic) Inflammation and stiffening of spine (Chronic) Arthralgia (Chronic) Suprapubic pain (Chronic) Lymphadenopathy (Chronic) Lumbar disc prolapse with compression radiculopathy (Chronic 08/27/12) spinal stenosis r leg radiculopathy Hypothyroidism (Chronic 04/08/13) Thyroid orbitopathy Fibromyalgia syndrome (Chronic 01/22/14) elevated MATTHEW 06/12/14;DNA DOUBLE STRANDED Ab, IgG; 177 Cardiolipin IgM; Indeterminate 12.5 Essential hypertension (Chronic 06/11/13) Chronic obstructive lung disease (Chronic) low FEV1 Cervical spondylosis (Chronic 08/27/12) Alcohol intake above recommended sensible limits (Chronic 04/14/14) Medical History (Updated 03/28/25 @ 07:22 by Gina Gotti MD) Abnormal WBC count (11/12/14) Abnormal CT of the chest COVID-19 02/01/22 Vaccinated with one booster Laceration of finger of right hand with tendon involvement (03/17/21) Exhaustion Shingles Pelvic pain in female History of femoral hernia Thoracic back pain Closed fracture of humerus (11/04/07) Hand joint pain (11/04/07) Smoker (11/04/07) Discoid lupus erythematosus Suspected 11/04/07 Closed fracture of humerus right 11/04/07 Hand joint pain 11/04/07 Therapeutic procedure nerve root block and steroid injection--right S-1 04/07/15 Thrombocytosis Weight loss, abnormal (04/23/17) Unilateral inguinal hernia, without obstruction or gangrene, not specified as recurrent (10/01/15) Left inguinal hernia Surgical History Hx of inguinal hernia repair (~03/2024) Bilateral, laproscopic Hx of lumbosacral spine surgery History of prior ablation treatment History of removal of cyst Status post laparoscopic hysterectomy Status post unilateral inguinal hernia repair (11/24/15) H/O removal of cyst wrist S/P laparoscopic hysterectomy for heavy bleeding; both ovaries remain H/O prior ablation treatment Graves Disease 08/27/81 S/P unilateral inguinal hernia repair left 11/24/15 Hysterectomy, Laproscopic (~1981) for heavy bleeding; still has both ovaries Repair of inguinal hernia (06/21/16) 06/21/16 removal of old mesh and repair 11/24/15; LEFT CYST REMOVAL (~1977) WRIST BONE DENSITY TEST (~2002) GOOD Recurrent major depression in partial remission (~1981) FOR GRAVES DISEASE Family History Mother , RESPIRATORY at age 78. Essential hypertension Mental disorder dementia Asthma Father , ETOH at age 56. Alcohol abuse Sister Essential hypertension Brother Asthma Maternal Grandfather , age 68 Essential hypertension Paternal Grandfather Diabetes Maternal Grandmother , age 68 Essential hypertension Paternal Grandmother No problems noted. Son No problems noted. Son No problems noted. Social History (Updated 01/07/25 @ 08:52 by Ruthie Belcher) Smoking/Tobacco Use Status: Former Tobacco Use tobacco type: cigarettes Quit Date: 09/30/93 Tobacco: How many years used: 23 Second Hand Exposure: No Smoking risk assessment performed?: Yes Alcohol Intake: current Alcohol Intake frequency: 0-2 drinks per day Alcohol type: beer Details: 1-2 drinks on typical day Drug use: Daily Substance use type: marijuana Household members: spouse and family Housing: house Do you need help understanding health information?: Never Pets and animals: Yes Pets and animals: dog(s) Sexually active: No Do you think of yourself as: straight/heterosexual Current gender identity: female What is your relationship status?: How often do you talk on the phone with friends or family?: three or more times per week How often do you get together with friends or relatives?: three or more times per week How often do you attend baptist or taoist services?: 4 or more times per year Do you belong to any clubs or organized social groups?: no Panel score (0-1 are the most socially isolated patients): 2 Francesca/Christianity: Alevism Special francesca needs: No Seatbelt use: always Drive intox 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 driver's license reviewing officer: No Do you feel safe at home: Yes Do you feel safe in your relationship?: Yes Victim of physical abuse: No Victim of emotional abuse: No Victim of sexual abuse: No PAWSS Have you Been Recently Intoxicated or Drunk Within the Last 30 days?: No Have you Ever Experienced Previous Episodes of Alcohol Withdrawal?: No Have you ever Experienced Withdrawal Seizures?: No Have you ever Experienced Delirium Tremens(DT)s?: No Have you ever undergone Alcohol Rehabilitation Treatment (i.e, inpt ot outpatient treatment programs)?: No Have you ever Experienced Blackouts?: No Have you ever Combined Alcohol with other Downers within the last 90 days?: No Have you ever Combined Alcohol with any other Substance of Abuse during the last 90 days?: No Positive Blood Alcohol level on Presentation? [PCS.BAL]: No Evidence of Increased Autonomic Activity (i.e. HR>120, tremor, sweating, agitation, nausea)?: No Result: 0
[2025-03-28] MEDS: Amox. 875/Clav. 125, 2 TABS/BTL 1 TAB PO (07:28)
--- NOTE | 2025-03-28 14:24 | NUR.NOTE ---
Patient called to say that prescription had not been sent to [facility] in [place]. This nurse called the pharmacy and gave verbal order from Dr. Gotti over the phone for Augmented 875-125 mg PO BID x 10 days, quantity 20. Called patient to advise her that prescription would be ready in approximately 15 minutes.
== END 2025-03-28 07:41 | disposition home or self-care (01) ==
LOC: ER 07:39
PROVIDERS: Emergency Provider Emergency Medicine; PCP Family Medicine
DX: R68.84 Jaw pain (principal); K04.7 Periapical abscess without sinus; Z59.89 Other problems related to housing and economic circumstances
CPT/HCPCS: 99283 ×2